=== PATIENT | male | born 1935 | race Caucasian/White ===

== ENCOUNTER → 2020-07-06 13:59 | Outpatient (BNVA) | payer MEDICARE, OTHER, SELFPAY | PROVIDERS: PCP Internal Medicine; Referring Provider Internal Medicine; Visit Provider Orthopaedic Surgery | DX: M75.41 Impingement syndrome of right shoulder (principal) | CPT/HCPCS: 20610; 99214; J1040 ==

== ENCOUNTER 2020-07-26 15:42 | Outpatient (REF) | payer MEDICARE, OTHER, SELFPAY ==
--- NOTE | 2020-07-26 | MR_ITS ---
EXAMINATION: MR SHOULDER WITHOUT CONTRAST, RIGHT CLINICAL INFORMATION: Right shoulder pain ROM. Evaluate for tear. Patient reports right shoulder sore and crackling noise, symptoms for one year. COMPARISON: XR right shoulder 10/26/2019. TECHNIQUE: MRI of the shoulder without contrast was performed on a high-field scanner. FINDINGS: ROTATOR CUFF: There is a focal irregular partial bursal surface insertional tear of the posterior fibers of the distal supraspinatus tendon, possibly involving the conjoined supraspinatus/infraspinatus tendon. This measures 13 mm transverse and 9 mm AP. There is a grossly intact thin articular surface. A small intramuscular cyst at the infraspinatus musculotendinous junction raises the suspicion of involvement of the conjoined tendon. There is distal subscapularis tendinosis with articular surface fraying and a suspected tiny interstitial insertional tear identified on the sagittal sequence. The teres minor tendon is intact. There is a small subacromial-subdeltoid bursal effusion. No muscle atrophy or fatty infiltration. BICEPS: There is moderate to high-grade partial tearing of the long head of the biceps tendon at the top the bicipital groove extending to the intra-articular portion. The biceps anchor appears intact. CORACOACROMIAL ARCH: The undersurface of the acromion is curved with a moderate-sized irregular broad-based subacromial spur. This includes a prominent anteroinferior extension. 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 LABRUM/CAPSULE: There appears to be a small tear at the base of the superior labrum. The anterior and posterior labrum are grossly intact. The capsular structures are unremarkable. GLENOHUMERAL JOINT/MARROW: There is patchy mild cartilage irregularity and thinning in the glenohumeral joint. There is a focal full-thickness fissure in the anterosuperior glenoid. There is a small joint effusion. MR/MR shoulder RT wo con IMPRESSION: 1. Focal irregular partial bursal surface insertional tear of the posterior fibers of the distal supraspinatus tendon, possibly involving the conjoined supraspinatus/infraspinatus tendon. 2. Distal subscapularis tendinosis with articular surface fraying and suspected tiny interstitial insertional tear. 3. Zfcypggq-vi-vjmr-grade partial tearing of the long head of the biceps tendon. 4. Moderate-sized irregular broad-based subacromial spur and moderate osteoarthritis of the acromioclavicular joint. 5. Overall mild glenohumeral arthrosis. Focal full-thickness cartilage fissure in the anterosuperior glenoid. Small joint effusion. 6. Small tear at the base of the superior labrum.
== END 2020-07-26 15:43 | disposition home or self-care (01) ==
LOC: HO.MRI 15:42
PROVIDERS: Visit Provider Internal Medicine
DX: M25.511 Pain in right shoulder (principal)
CPT/HCPCS: 73221

== ENCOUNTER → 2020-08-10 13:53 | Outpatient (BNVA) | payer MEDICARE, OTHER, SELFPAY | PROVIDERS: PCP Internal Medicine; Referring Provider Internal Medicine; Visit Provider Orthopaedic Surgery | DX: M75.41 Impingement syndrome of right shoulder (principal); S46.001A Unspecified injury of muscle(s) and tendon(s) of the rotator cuff of right shoulder, initial encounter | CPT/HCPCS: 99212 ==

== ENCOUNTER 2021-02-09 20:35 | Emergency (ER) | payer OTHER, SELFPAY ==
[2021-02-09 20:41] VITALS: BP 133/58; PULSE 79; RESP 16; TEMP 36.4; O2SAT 97; BMI 24.9
--- NOTE | 2021-02-09 21:45 | ED.WOUNDLAC ---
HPI - Wound/Laceration General Chief Complaint: Wound/Laceration Stated Complaint: lac - on blood thinner Time Seen by Provider: 02/09/21 21:42 Source: patient Mode of arrival: ambulatory History of Present Illness HPI narrative: 85-year-old male who presents after having a skin tear/laceration repaired up in [place] while on anticoagulation. His who is with him was concerned regarding continued ?bleeding?. They state that they have a follow-up appointment on Saturday with their PCP. Otherwise, patient denies any fevers, chills, numbness/tingling into the distal left upper extremity. Related Data Home Medications Medication Instructions Recorded Confirmed apixaban 5 mg tablet 5 mg PO BID 08/10/20 finasteride 5 mg tablet 5 mg PO DAILY 08/10/20 fluticasone propionate 50 1 spray INTRANASAL DAILY 08/10/20 mcg/actuation nasal spray,suspension loratadine 5 mg/5 mL oral solution 10 ml PO DAILY 08/10/20 metoprolol succinate 50 mg 50 mg PO DAILY 08/10/20 tablet,extended release 24 hr tamsulosin 0.4 mg capsule 0.4 mg PO DAILY 08/10/20 Allergies Allergy/AdvReac Type Severity Reaction Status Date / Time No Known Allergies Allergy Verified 07/06/20 14:02 Review of Systems Review of Systems: Pertinent positives and negatives as stated in HPI 10 point review of systems is otherwise negative. [facility] Past Medical History Source: nursing notes reviewed Social History Social History Advance Directives: No Advance Directives Information Provided: No Current occupational status: retired Current occupation: Right Handed Physical Exam Vital Signs: Vital Signs: Last Vital Signs Temp 97.6 F 02/09/21 20:41 Pulse 79 02/09/21 20:41 Resp 16 02/09/21 20:41 BP 133/58 L 02/09/21 20:41 Pulse Ox 97 02/09/21 20:41 Body Mass Index 24.9 VITAL SIGNS: Reviewed. GENERAL: Well developed, well nourished, in no acute distress. HEAD: Normocephalic/atraumatic EYES: PERRLA, EOMI LUNGS: Normal breath sounds. No adventitious sounds or accessory muscle use. SpO2<97> CARDIOVASCULAR: Regular rate and rhythm without noted murmurs ABDOMEN: Soft, non-tender, non-distended with bowel sounds. LUE: Skin tear that is well-approximated, hemostatic, without surrounding erythema or induration and no evidence of hematoma development. Normal vascularly intact distal. NEUROLOGIC: Alert and oriented x 4. Course Course Course Narrative: 85-year-old male with history and clinical presentation consistent with well approximated and repaired skin tear to the left upper extremity that is hemostatic. Both the patient and his were reassured, the wound was redressed with Telfa and Kerlix gauze and patient was discharged with instructions to continue with follow-up with his PCP at 1:00 p.m. on Saturday. Discharge Plan Discharge Clinical Impression: Skin tear of forearm without complication Patient Disposition: Home, Self-Care Instructions: Skin Tear (ED) Additional Instructions: Please continue with your home medications as prescribed. Please continue with your scheduled appointment at 1:[address] Polanco Return to the emergency room for any acute worsening of your symptoms. Referrals: Michael Polanco MD [Primary Care Provider] - 2 days (Re-evaluation of skin tear this hemostatic on this recheck on 02/09 at [facility]. )
== END 2021-02-09 21:55 | disposition home or self-care (01) ==
PROVIDERS: Emergency Provider Student in an Organized Health Care Education/Training Program; PCP Internal Medicine
DX: Z48.00 Encounter for change or removal of nonsurgical wound dressing (principal); S51.812D Laceration without foreign body of left forearm, subsequent encounter; X58.XXXD Exposure to other specified factors, subsequent encounter
CPT/HCPCS: 99283

== ENCOUNTER → 2021-03-06 13:14 | Outpatient (BNVA) | payer OTHER, MEDICARE, SELFPAY | PROVIDERS: PCP Internal Medicine; Referring Provider Internal Medicine; Visit Provider Internal Medicine | DX: I48.0 Paroxysmal atrial fibrillation (principal); I49.8 Other specified cardiac arrhythmias; Z95.818 Presence of other cardiac implants and grafts; Z79.899 Other long term (current) drug therapy | CPT/HCPCS: 93005; 99202 ==

== ENCOUNTER 2021-05-09 11:01 | Outpatient (REF) | payer MEDICARE, OTHER, SELFPAY ==
--- NOTE | ~2021-05-09 | XR_ITS ---
EXAMINATION: XR SHOULDER, LEFT CLINICAL INFORMATION: Left shoulder pain. COMPARISON: None. TECHNIQUE: Grashey, scapular Y, and axillary views of the left shoulder. FINDINGS: Small acromioclavicular marginal osteophytes. Small subacromial spurs. Moderate glenohumeral joint space narrowing with small marginal osteophytes. No osseous erosion. No fracture or dislocation. No abnormal soft tissue calcification. XR/XR shoulder LT min 2V IMPRESSION: Mild acromioclavicular osteoarthritis with small subacromial spurs, unchanged. Mild glenohumeral osteoarthritis, unchanged.
== END 2021-05-09 11:02 | disposition home or self-care (01) ==
LOC: HO.HOSX 11:01
PROVIDERS: Visit Provider Orthopaedic Surgery
DX: M75.41 Impingement syndrome of right shoulder (principal); M75.42 Impingement syndrome of left shoulder
CPT/HCPCS: 20610; 73030; 99212; J1040

== ENCOUNTER → 2021-05-11 10:22 | Outpatient (REF) | payer MEDICARE, OTHER, SELFPAY ==
--- NOTE | 2021-05-11 10:26 | CA_ITS ---
Transthoracic Echocardiogram Patient (Last, First, Middle): Mihir Pitts, Gender: Male Date of : 1935 Age: 85 Procedure Date: 05/11/2021 Procedure Type: Transthoracic Echocardiogram Location: OP Height: 187.96 cm Weight: 81.65 kg BSA: 2.08 m2 Heart Rate: bpm BP: 136 / 80 mmHg Accounting Clerk: SALUD De Dios MD: Kamari Osuna MD Community Health Nurse Staff: Alex Hassan MD Symptoms: I48.0 - Paroxysmal atrial fibrillation Study Quality: Good ECG Rhythm: Sinus Conclusions: - 1. Normal LV systolic function with impaired relaxation filling pattern 2. Mildly dilated left atrium 3. Mild aortic regurgitation 4. Normal RV systolic pressure 5. Mildly dilated ascending aorta at 3.9 cm 6. No pericardial effusion Findings Left Ventricle Normal left ventricular size, thickness, and systolic function. The visually estimated ejection fraction is between 55-60%. Spectral Doppler is indicative of an impaired relaxation filling pattern. E/E prime ratio is between 8 and 15 consistent with indeterminate filling pressures. Right Ventricle Normal right ventricular cavity size and systolic function. Atria The left atrium is mildly dilated. There is no evidence of interatrial shunt. The right atrium is normal in size. Aortic Valve There is mild calcification of the aortic valve. There is no aortic valve stenosis. There is mild aortic valve regurgitation. Mitral Valve There is mild anterior and posterior mitral leaflet thickening. There is trace mitral valve regurgitation. There is no mitral valve stenosis. Pulmonic Valve The pulmonic valve was not well visualized. Tricuspid Valve Likely normal tricuspid valve structure and function. There is mild tricuspid valve regurgitation. The right ventricular systolic pressure is normal. The right ventricular systolic pressure is 35 mmHg. Normal right atrial pressure. There is no evidence of pulmonary hypertension. Great Vessels The pulmonary artery was not well visualized. There is mild dilatation of the ascending aorta measuring 3.90 cm. Venous The inferior vena cava is normal in size and collapses greater than 50% with inspiration. Pericardium/Pleural There is no evidence of pericardial effusion. Prior Study Comparison No previous study in the last 5 years for comparison Measurements 2D Linear Measurements IVSd: 1.08 0.6-0.9/0.6-1.0 cm LVIDd: 4.44 3.9-5.3/4.2-5.9 cm LVIDd Index: 2.13 2.4-3.2/2.2-3.1 cm/m2 LVIDs: 2.82 2.0-3.6 cm LVPWd: 0.88 0.7-1.1 cm Ao Root: 3.90 2.1-3.5 cm LA Diam: 3.90 2.7-3.8/3.0-4.0 cm LAIDs Index: 1.88 1.5-2.3 cm/m2 LV Mass: 181.60 67-162/88-224 g LV Mass Index: 87.31 43-95/49-115 g/m2 LVOT Diam: 2.10 3.0+(-)1.3 cm 2D Systolic Function EF 4C: 55.50 >55% EF 2C: 61.80 >55% EF BiP: 59.50 >55% Mitral Valve MV Pk E: 0.80 MV PK A: 0.81 MV Decel Time: 204.00 E/A: 1.00 E'Lateral: 8.49 E'Medial: 6.96 E/E' Med: 11.50 E/E' Lat: 9.40 PHT: 60.00 MVA PHT: 3.67 Decel [place]: 3.93 Aortic Valve AoV Pk Shabbir: 1.25 AoV Mn Shabbir: 0.80 AoV VTI: 0.28 AoV Pk Grad: 6.00 Aov Mn Grad: 3.00 JUSTIN Cont.VTI: 3.42 LVOT LVOT Pk Shabbir: 1.24 LVOT Mn Shabbir: 0.77 LVOT VTI: 0.28 LVOT Pk Grad: 6.00 LVOT Mn Grad: 3.00 LVOT Diam: 2.10 LVOT Area: 3.46 Diastolic Function MV Pk E: 0.80 MV Pk A: 0.81 E/A: 1.00 E'Medial: 6.96 E/E' Med: 11.50 E' Laterial: 8.49 E/E' Lat: 9.40 Right Ventricle TAPSE (mm): 2.77 TVS' Shabbir: 18.00 Tricuspid Valve TR Pk Shabbir: 2.84 TR Pk Grad: 32.00 RA Press: 3.00 RVSP: 35.00 Great Vessels Aorta Ao Root-2D: 3.90 2.0-3.7 cm Ao Asc: 3.90 2.1-3.4 cm Ao Arch: 3.50 Updated in Other Vendor System with Status of Final Alex Hassan MD electronically signed on 05/12/2021 3:28:59 PM with status of Final
== END ==
LOC: HO.CARD 10:22
PROVIDERS: Visit Provider Internal Medicine
DX: I48.0 Paroxysmal atrial fibrillation (principal)
CPT/HCPCS: 93306

== ENCOUNTER 2021-07-06 14:18 | Outpatient (REF) | payer MEDICARE, OTHER, SELFPAY ==
--- NOTE | ~2021-07-06 | XR_ITS ---
EXAMINATION: XR HIP, LEFT CLINICAL INFORMATION: Left hip pain, limited range of motion. COMPARISON: None TECHNIQUE: Two views of the left hip. FINDINGS: Mild left hip degenerative joint changes are seen with joint space narrowing and periarticular sclerosis. There is no acute fracture or dislocation. The left hemipelvis is intact. The soft tissues are unremarkable. 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
== END 2021-07-06 14:19 | disposition home or self-care (01) ==
LOC: HO.HMGCX 14:18
PROVIDERS: PCP Internal Medicine; Visit Provider Internal Medicine
DX: M25.552 Pain in left hip (principal)
CPT/HCPCS: 73502

== ENCOUNTER → 2021-07-10 12:10 | Outpatient (BNVA) | payer MEDICARE, OTHER, SELFPAY | PROVIDERS: PCP Internal Medicine; Referring Provider Internal Medicine; Visit Provider Internal Medicine | DX: I48.0 Paroxysmal atrial fibrillation (principal); I49.8 Other specified cardiac arrhythmias; Z87.891 Personal history of nicotine dependence; Z95.818 Presence of other cardiac implants and grafts; Z79.899 Other long term (current) drug therapy | CPT/HCPCS: 99212 ==

== ENCOUNTER → 2022-01-09 12:12 | Outpatient (BNVA) | payer MEDICARE, OTHER, SELFPAY | PROVIDERS: PCP Internal Medicine; Referring Provider Internal Medicine; Visit Provider Internal Medicine | DX: I49.8 Other specified cardiac arrhythmias (principal); I48.19 Other persistent atrial fibrillation; I10 Essential (primary) hypertension; Z95.818 Presence of other cardiac implants and grafts | CPT/HCPCS: 99212 ==

== ENCOUNTER 2022-02-26 11:24 | Outpatient (REF) | payer MEDICARE, OTHER, SELFPAY ==
--- NOTE | ~2022-02-26 | XR_ITS ---
EXAMINATION: XR CHEST CLINICAL INFORMATION: Persistent atrial fibrillation. COMPARISON: None. TECHNIQUE: Frontal view of the chest was obtained. FINDINGS: An implantable loop recorder projects over the medial base of the left lung. Normal-sized heart. Tortuous aorta. Clear lungs. No effusion or pneumothorax. XR/XR chest 1V IMPRESSION: No acute process identified.
[2022-02-26 12:13] LABS: Hemoglobin 13.6 g/dl (14.0-18.0); Mean Corpuscular HGB Conc 33.2 g/dl (31.0-36.0); Mean Corpuscular Volume 99.5 fL (80.0-98.0); Mean Platelet Volume 8.5 fL (9.4-12.4); Platelet Count 222 X10*3/uL (160-400); Red Blood Count 4.12 X10*6/uL (4.60-5.80); Red Cell Distribution Width 13.4 % (11.0-16.0); White Blood Count 6.6 X10*3/uL (4.8-10.8)
[2022-02-26 12:43] LABS: Alanine Aminotransferase 20 U/L (0-40); Albumin Level 4.1 g/dL (3.5-5.0); Alkaline Phosphatase 80 U/L (39-117); Anion Gap 11 (12-20); Aspartate Amino Transferase 19 U/L (5-37); Bilirubin Total 0.7 mg/dL (0.0-1.0); Blood Urea Nitrogen 24 mg/dL (9-16); Calcium 9.1 mg/dL (8.4-10.2); Carbon Dioxide 28 mmol/L (22-29); Chloride 107 mmol/L (96-108); Estimated Glomerular Filt Rate > 60; Glucose Random 98 mg/dL (60-115); Potassium 3.9 mmol/L (3.3-5.1); Sodium 142 mmol/L (135-145); Total Protein 6.7 g/dL (6.5-8.0)
== END 2022-02-26 11:25 | disposition home or self-care (01) ==
LOC: HO.XRAY 11:24
PROVIDERS: PCP Internal Medicine; Visit Provider Nurse Practitioner Family
DX: I48.19 Other persistent atrial fibrillation (principal)
CPT/HCPCS: 36415; 71045; 80053; 84443; 85027

== ENCOUNTER → 2022-02-27 10:10 | Outpatient (BNVA) | payer MEDICARE, OTHER, SELFPAY | PROVIDERS: PCP Internal Medicine; Referring Provider Internal Medicine; Visit Provider Internal Medicine | DX: I48.91 Unspecified atrial fibrillation (principal); R94.31 Abnormal electrocardiogram [ECG] [EKG] | CPT/HCPCS: 93005 ==

== ENCOUNTER → 2022-06-27 12:35 | Outpatient (BNVA) | payer MEDICARE, OTHER, SELFPAY | PROVIDERS: PCP Internal Medicine; Referring Provider Internal Medicine; Visit Provider Internal Medicine | DX: I48.19 Other persistent atrial fibrillation (principal); I49.8 Other specified cardiac arrhythmias; I10 Essential (primary) hypertension; Z95.818 Presence of other cardiac implants and grafts; Z79.01 Long term (current) use of anticoagulants; Z79.899 Other long term (current) drug therapy | CPT/HCPCS: 99212 ==

== ENCOUNTER → 2022-08-01 13:56 | Outpatient (REF) | payer MEDICARE, OTHER, SELFPAY ==
--- NOTE | 2022-08-01 13:59 | CA_ITS ---
Transthoracic Echocardiogram Patient (Last, First, Middle): Mihir Pitts, Gender: Male Date of : 1935 Age: 87 Procedure Date: 08/01/2022 Procedure Type: Transthoracic Echocardiogram Location: OP Height: 190.5 cm Weight: 81.65 kg BSA: 2.10 m2 Heart Rate: 96 bpm BP: 135 / 80 mmHg Second Baller: CECILY De Dios MD: Kamari Osuna MD Field Technical Specialist: Alex Hassan MD Symptoms: I49.8 - Other specified cardiac arrhythmias Study Quality: Fair ECG Rhythm: Atrial Fibrillation Conclusions: - 1. Mildly reduced LV systolic function with LVEF of 45-50% 2. Moderately dilated left atrium 3. Mild aortic and mild mitral regurgitation 4. Normal RV systolic pressure 5. Mildly dilated ascending aorta measured at 3.8 cm on this study 6. No gross pericardial effusion Findings Left Ventricle Normal left ventricular cavity size. There is mildly increased left ventricular wall thickness. The left ventricular systolic function is mildly decreased. The visually estimated ejection fraction is between 45-50%. Diastolic function is indeterminate on the basis of available data. Right Ventricle Normal right ventricular cavity size and systolic function. Atria The left atrium is moderately dilated. There is no evidence of interatrial shunt. The right atrium is likely dilated. Aortic Valve There is mild thickening of the aortic valve. There is no aortic valve stenosis. There is mild aortic valve regurgitation. Mitral Valve There is mild anterior and posterior mitral leaflet thickening. There is mild mitral valve regurgitation. There is no mitral valve stenosis. Pulmonic Valve The pulmonic valve is likely normal. There is trace to mild pulmonic valve regurgitation. Tricuspid Valve Normal tricuspid valve structure. There is trace tricuspid valve regurgitation. The right ventricular systolic pressure is normal. The right ventricular systolic pressure is 17 mmHg. Normal right atrial pressure. There is no evidence of pulmonary hypertension. Great Vessels The pulmonary artery was not well visualized. There is mild dilatation of the ascending aorta measuring 3.80 cm. Venous The inferior vena cava is normal in size and collapses greater than 50% with inspiration. Pericardium/Pleural There is no evidence of pericardial effusion. Prior Study Comparison Changes noted compared to prior study dated: 05/11/2021. LV systolic function is mildly reduced Measurements 2D Linear Measurements IVSd: 1.34 0.6-0.9/0.6-1.0 cm LVIDd: 4.42 3.9-5.3/4.2-5.9 cm LVIDd Index: 2.10 2.4-3.2/2.2-3.1 cm/m2 LVIDs: 3.87 2.0-3.6 cm LVPWd: 1.14 0.7-1.1 cm LA Diam: 4.40 2.7-3.8/3.0-4.0 cm LAIDs Index: 2.10 1.5-2.3 cm/m2 LV Mass: 251.84 67-162/88-224 g LV Mass Index: 119.93 43-95/49-115 g/m2 LVOT Diam: 2.30 3.0+(-)1.3 cm 2D Systolic Function EF 4C: 43.60 >55% EF 2C: 50.90 >55% EF BiP: 46.50 >55% Mitral Valve E'Lateral: 9.79 E'Medial: 7.83 Aortic Valve AoV Pk Shabbir: 1.03 AoV Mn Shabbir: 0.74 AoV VTI: 0.22 AoV Pk Grad: 4.00 Aov Mn Grad: 3.00 JUSTIN Cont.VTI: 2.99 AI Pk Shabbir: 3.03 AI [place]: 1.75 LVOT LVOT Pk Shabbir: 0.78 LVOT Mn Shabbir: 0.55 LVOT VTI: 0.16 LVOT Pk Grad: 2.00 LVOT Mn Grad: 1.00 LVOT Diam: 2.30 LVOT Area: 4.15 Diastolic Function E'Medial: 7.83 E' Laterial: 9.79 Right Ventricle TAPSE (mm): 18.50 TVS' Shabbir: 10.30 Tricuspid Valve TR Pk Shabbir: 1.86 TR Pk Grad: 14.00 RA Press: 3.00 RVSP: 17.00 Great Vessels Aorta Sinus of Valsalva: 3.50 2.0-3.5 cm Ao Asc: 3.80 2.1-3.4 cm Pulmonary Valve PV Pk Shabbir: 0.69 Peak PV Grad: 2.00 Updated in Other Vendor System with Status of Final Alex Hassan MD electronically signed on 08/02/2022 9:04:59 AM with status of Final
== END ==
LOC: HO.CARD 13:56
PROVIDERS: Absent Provider Internal Medicine; PCP Internal Medicine; Visit Provider Internal Medicine Cardiovascular Disease
DX: I49.8 Other specified cardiac arrhythmias (principal)
CPT/HCPCS: 93306

== ENCOUNTER 2022-12-13 10:53 | Outpatient (REF) | payer MEDICARE, OTHER, SELFPAY ==
--- NOTE | ~2022-12-13 | CT_ITS ---
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 COMPARISON: CT head from 04/03/2019. Brain MRI from 03/12/2019. TECHNIQUE: Contiguous axial imaging was performed from the skull base to vertex without intravenous administration of contrast. This CT examination was performed using dose optimization techniques as appropriate, variously including the following: *Automated exposure control. *Adjustment of mA and/or kV according to patient size (this includes techniques or standardized protocols for targeted exams where dose is matched to indication/reason for exam; i.e. extremities or head). *Use of iterative reconstruction technique. DLP: 891 mGy-cm FINDINGS: There is no evidence of acute intracranial hemorrhage or edematous territorial infarction. Mota-white matter differentiation is preserved. Scattered and partially confluent hypoattenuation in the periventricular and deep white matter are consistent with mild to moderate microangiopathy. The ventricles are normal in morphology and size. No evidence for obstructive hydrocephalus. No abnormal mass effect or midline shift. No extra-axial fluid collections. Calcific atherosclerotic disease of the intracranial internal carotid and vertebral arteries. No hyperdense vessel sign. No acute soft tissue or osseous abnormalities. Moderate mucosal thickening of the paranasal sinuses. The mastoid air cells and middle ear cavities are clear. Bilateral lens extractions. CT/CT head/brain wo IV con IMPRESSION: 1. No evidence of acute intracranial hemorrhage or edematous territorial infarction. 2. Mild to moderate underlying microangiopathy and generalized cerebral volume loss.
== END 2022-12-13 10:54 | disposition home or self-care (01) ==
LOC: HO.CT 10:53
PROVIDERS: Visit Provider Internal Medicine
DX: G90.3 Multi-system degeneration of the autonomic nervous system (principal)
CPT/HCPCS: 70450

== ENCOUNTER → 2023-01-03 12:44 | Outpatient (BNVA) | payer MEDICARE, OTHER, SELFPAY | PROVIDERS: PCP Internal Medicine; Referring Provider Internal Medicine; Visit Provider Internal Medicine | DX: I48.19 Other persistent atrial fibrillation (principal); I42.9 Cardiomyopathy, unspecified; I49.8 Other specified cardiac arrhythmias; I10 Essential (primary) hypertension; Z79.01 Long term (current) use of anticoagulants; Z79.899 Other long term (current) drug therapy; Z95.818 Presence of other cardiac implants and grafts | CPT/HCPCS: 93005; 99212 ==

== ENCOUNTER 2023-03-06 09:49 | Outpatient (REF) | payer MEDICARE, OTHER, SELFPAY ==
[2023-03-06 09:53] VITALS: BMI 49.4
[2023-03-06 09:54] VITALS: BP 132/63; PULSE 88; RESP 16; TEMP 35.9; O2SAT 96
[2023-03-06 10:24] VITALS: BP 127/61; PULSE 72; RESP 18; O2SAT 97
--- NOTE | 2023-03-06 11:45 | PM.OP ---
Brief Operative Note Date of Service: 03/06/23 Pre-op diagnosis: Implantable loop recorder in place Post-op diagnosis: same Procedure: Removal of implantable loop recorder Implants: After obtaining full informed consent patient was brought to the minor surgery suite. Patient was laid on the operating table in supine position. The precordial area with a was then prepped and draped in a sterile fashion. Patient was then given 2% lidocaine with epinephrine intradermally and subcutaneously over the site of implantable loop recorder. A small incision was then made at the head of the implantable loop recorder. The loop recorder was then removed with help of a Shakila. The wound was then closed with help of Steri-Strips and pressure dressing applied. Surgeon: Alex Hassan MD Anesthesia: local Was an Jewelry Store Manager used for this Procedure?: No Estimated blood loss (mL): 2 Pathology: none sent Condition: stable Disposition: same day
== END 2023-03-06 09:50 | disposition home or self-care (01) ==
LOC: HO.MS 09:49
PROVIDERS: PCP Internal Medicine; Visit Provider Internal Medicine Cardiovascular Disease
PROC: (CPT 33286; principal; 2023-03-06 10:00)
DX: Z95.818 Presence of other cardiac implants and grafts (principal); Z45.09 Encounter for adjustment and management of other cardiac device
CPT/HCPCS: 33286

== ENCOUNTER → 2023-03-21 14:45 | Outpatient (BNVA) | payer MEDICARE, OTHER, SELFPAY | PROVIDERS: PCP Internal Medicine; Visit Provider Internal Medicine | DX: J86.9 Pyothorax without fistula (principal) | CPT/HCPCS: Q3014 ==

== ENCOUNTER → 2023-06-17 12:57 | Outpatient (REF) | payer MEDICARE, OTHER, SELFPAY ==
--- NOTE | 2023-06-17 13:00 | CA_ITS ---
Transthoracic Echocardiogram Amended Patient (Last, First, Middle): Mihir Pitts, Gender: Male Date of : 1935 Age: 87 Procedure Date: 06/17/2023 Procedure Type: Transthoracic Echocardiogram Location: OP Height: 187.96 cm Weight: 81.99 kg BSA: 2.08 m2 Heart Rate: 80 bpm BP: 130 / 80 mmHg Echo Vasc Tech: CECILY Referring MD: Kamari Osuna MD Symptoms: I42.9 - Cardiomyopathy, unspecified Study Quality: Adequate ECG Rhythm: Atrial Fibrillation Conclusions: - 1. Low normal LV ejection fraction of 50-55% 2. Mildly dilated ascending aorta at 4 cm 3. Moderately dilated left atrium 4. Mild aortic and mitral regurgitation 5. No gross pericardial effusion Findings Left Ventricle Normal left ventricular cavity size. There is normal left ventricular wall thickness. The left ventricular systolic function is low normal. The visually estimated ejection fraction is between 50-55%. Diastolic function is indeterminate on the basis of available data. There is mild septal asymmetric hypertrophy. Right Ventricle Normal right ventricular cavity size and systolic function. Atria The left atrium is moderately dilated. Interatrial shunt cannot be excluded. The right atrium is mildly dilated. Aortic Valve There is mild calcification of the aortic valve. There is no aortic valve stenosis. There is mild aortic valve regurgitation. Mitral Valve There is mild anterior and posterior mitral leaflet thickening. There is mild mitral annular calcification. There is mild mitral valve regurgitation. There is no mitral valve stenosis. Pulmonic Valve The pulmonic valve is likely normal. Tricuspid Valve Normal tricuspid valve structure. There is trace tricuspid valve regurgitation. The right ventricular systolic pressure is 20 mmHg. Normal right atrial pressure. There is no evidence of pulmonary hypertension. Great Vessels The pulmonary artery was not well visualized. There is mild dilatation of the ascending aorta measuring 4.00 cm. Venous The inferior vena cava is normal in size and collapses greater than 50% with inspiration. Pericardium/Pleural There is no evidence of pericardial effusion. Prior Study Comparison Changes noted compared to prior study dated: 08/01/2022. LV systolic function is marginally improved Measurements 2D Linear Measurements IVSd: 1.40 0.6-0.9/0.6-1.0 cm LVIDd: 4.60 3.9-5.3/4.2-5.9 cm LVIDd Index: 2.21 2.4-3.2/2.2-3.1 cm/m2 LVIDs: 3.70 2.0-3.6 cm LVPWd: 1.00 0.7-1.1 cm LA Diam: 4.60 2.7-3.8/3.0-4.0 cm LAIDs Index: 2.21 1.5-2.3 cm/m2 LV Mass: 255.49 67-162/88-224 g LV Mass Index: 122.83 43-95/49-115 g/m2 LVOT Diam: 2.00 3.0+(-)1.3 cm 2D Volumes LA Vol: 47.10 2D Systolic Function EF 4C: 55.10 >55% EF 2C: 56.00 >55% EF BiP: 53.00 >55% Mitral Valve MV Pk E: 0.90 MV PK A: 0.66 MV Decel Time: 260.00 E/A: 1.40 E'Lateral: 10.90 E'Medial: 9.57 E/E' Med: 9.40 E/E' Lat: 8.30 PHT: 76.00 MVA PHT: 2.89 Decel [place]key: 3.47 Aortic Valve AoV Pk Shabbir: 1.01 AoV Mn Shabbir: 0.78 AoV VTI: 0.24 AoV Pk Grad: 4.00 Aov Mn Grad: 3.00 JUSTIN Cont.VTI: 2.24 AI Pk Shabbir: 2.72 AI Dickey: 1.36 LVOT LVOT Pk Shabbir: 0.79 LVOT Mn Shabbir: 0.57 LVOT VTI: 0.17 LVOT Pk Grad: 3.00 LVOT Mn Grad: 1.00 LVOT Diam: 2.00 LVOT Area: 3.14 Diastolic Function MV Pk E: 0.90 MV Pk A: 0.66 E/A: 1.40 E'Medial: 9.57 E/E' Med: 9.40 E' Laterial: 10.90 E/E' Lat: 8.30 Right Ventricle TAPSE (mm): 21.70 TVS' Shabbir: 12.00 Tricuspid Valve TR Pk Shabbir: 2.09 TR Pk Grad: 17.00 RA Press: 3.00 RVSP: 20.00 Great Vessels Aorta Sinus of Valsalva: 3.70 2.0-3.5 cm Ao Asc: 4.00 2.1-3.4 cm Updated in Other Vendor System with Status of Final Alex Hassan MD electronically signed on 06/18/2023 11:19:43 AM with status of Final
== END ==
LOC: HO.CARD 12:57
PROVIDERS: PCP Internal Medicine; Visit Provider Internal Medicine
DX: I42.9 Cardiomyopathy, unspecified (principal)
CPT/HCPCS: 93306

== ENCOUNTER → 2023-06-17 13:00 | Outpatient (BNV) | payer MEDICARE, OTHER, SELFPAY | PROVIDERS: PCP Internal Medicine; Visit Provider Internal Medicine Cardiovascular Disease | DX: I35.1 Nonrheumatic aortic (valve) insufficiency (principal); I34.0 Nonrheumatic mitral (valve) insufficiency | CPT/HCPCS: 93306 ==

== ENCOUNTER 2023-06-20 09:38 | Outpatient (AMB) | payer MEDICARE, OTHER, SELFPAY ==
--- NOTE | 2023-06-20 09:43 | A.OFFVIS_ITS ---
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 According to , he might be getting some dementia type symptoms. He falls asleep during the day extra. Memory issues and others. In fact, they have decided that he can stop driving. Otherwise, from cardiac he does not really have any symptoms like angina or shortness of breath or palpitations or anything else along those lines. Otherwise, getting along okay. [facility] Medical History Atrial arrhythmia PAF (paroxysmal atrial fibrillation) Surgical History History of loop recorder Family History Father Myocardial infarct Mother No problems noted. Social History Patient Tobacco Use Status: Former Tobacco user Quit Date: 02/03/1971 Current occupational status: retired Current occupation: Right Handed Review of Systems Const Denies weakness ENT Denies dizziness Card Denies chest pain, Denies chest pain with activity, Denies syncope, Denies rapid heart rate, Denies pedal edema, Denies edema, Denies leg edema, Denies lightheadedness, Denies palpitations, Denies dyspnea, Denies dyspnea on exertion and Denies orthopnea Resp Denies cough, Denies dyspnea and Denies dyspnea on exertion GI Denies hematochezia and Denies change in stool character Musc Denies abnormal gait, Denies muscle cramps, Denies muscle weakness, Denies numbness, Denies radiating pain into limb and Denies tingling Neuro Denies abnormal gait, Denies dizziness, Denies syncope, Denies numbness, Denies tingling and Denies weakness Endo Denies palpitations Physical Exam Vital Signs: Last Vital Signs Pulse 82 06/20/23 09:44 BP 120/72 06/20/23 09:44 BMI result Body Mass Index 24.1 Const General: comfortable and no acute distress Orientation/consciousness: patient oriented x3 HEENT Other: Unremarkable Head: Yes normal to inspection Neck Neck: Yes normal visual inspection Chest Chest palpation & inspection: normal inspection of the chest Resp Auscultation: clear to auscultation bilaterally Cardio Palpation: normal PMI Heart sounds: S1 normal heart sound present, S2 normal heart sound present, no gallops, no murmurs and no rubs GI Palpation (GI): Soft to palpation Back/Spine/Pelvis Other: unremarkable Skin General skin exam: no rashes or lesions noted Neuro General: patient oriented x3 Extrem General: Yes normal to inspection Psych Mental Status: mental status grossly normal Assessment & Plan Assessment & Plan (1) Persistent atrial fibrillation: Code(s): I48.19 - Other persistent atrial fibrillation (2) Cardiomyopathy: Code(s): I42.9 - Cardiomyopathy, unspecified (3) Essential hypertension: Code(s): I10 - Essential (primary) hypertension Plan Patient had implantable loop recorder in the past but that has now been removed. We can follow the atrial fibrillation clinically. Continue metoprolol ER as well as digoxin. Based on the previous implantable loop recorder data, these doses have been adjusted and no further changes at this time. Continue Eliquis without changes. With regard to the low normal LVEF on the echocardiogram, probably from atrial fibrillation. Last year, 45-50%. More recently 50-55%. No specific management for that. Blood pressure is stable. Discussed with who came for appointment. Follow-up in 6 months. Coding Level of Care Code Est Pt Level 4 (47169) Diagnoses Persistent atrial fibrillation I48.19 Cardiomyopathy I42.9 Essential hypertension I10
[2023-06-20 09:44] VITALS: BP 120/72; PULSE 82; BMI 24.1
== END 2023-06-20 10:05 | disposition home or self-care (01) ==
PROVIDERS: PCP Internal Medicine; Visit Provider Internal Medicine
DX: I48.19 Other persistent atrial fibrillation (principal); I42.9 Cardiomyopathy, unspecified; I10 Essential (primary) hypertension
CPT/HCPCS: 99214

== ENCOUNTER → 2023-06-20 09:38 | Outpatient (BNVA) | payer MEDICARE, OTHER, SELFPAY | PROVIDERS: PCP Internal Medicine; Visit Provider Internal Medicine | DX: I48.19 Other persistent atrial fibrillation (principal); I42.9 Cardiomyopathy, unspecified; I10 Essential (primary) hypertension; Z79.01 Long term (current) use of anticoagulants; Z79.899 Other long term (current) drug therapy | CPT/HCPCS: 99212 ==

== ENCOUNTER 2023-12-24 10:16 | Outpatient (AMB) | payer MEDICARE, OTHER, SELFPAY ==
--- NOTE | 2023-12-24 10:32 | A.OFFVIS_ITS ---
Intake Vital Signs 12/24/23 10:36 Height 6 ft 1 in Weight 188 lb 7.924 oz BMI 24.9 BP 146/62 H Blood Pressure Location Lt brachial Position Sitting Pulse 64 Intake Visit Reasons: 6 mth fu Intake Note: 6 month follow up w. 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 From cardiac, he is generally doing fine. No specific symptoms. There is concern for dementia type symptoms from his . Sleeps a lot. [facility] Medical History Atrial arrhythmia PAF (paroxysmal atrial fibrillation) Surgical History History of loop recorder Family History Father Myocardial infarct Mother No problems noted. Social History Patient Tobacco Use Status: Former Tobacco user Quit Date: 02/03/1971 Current occupational status: retired Current occupation: Right Handed Review of Systems Const Denies weakness ENT Denies dizziness Card Denies chest pain, Denies chest pain with activity, Denies syncope, Denies rapid heart rate, Denies pedal edema, Denies edema, Denies leg edema, Denies lightheadedness, Denies palpitations, Denies dyspnea, Denies dyspnea on exertion and Denies orthopnea Resp Denies cough, Denies dyspnea and Denies dyspnea on exertion GI Denies hematochezia and Denies change in stool character Musc Denies abnormal gait, Denies muscle cramps, Denies muscle weakness, Denies numbness, Denies radiating pain into limb and Denies tingling Neuro Denies abnormal gait, Denies dizziness, Denies syncope, Denies numbness, Denies tingling and Denies weakness Endo Denies palpitations Physical Exam Vital Signs: Last Vital Signs Pulse 64 12/24/23 10:36 BP 146/62 H 12/24/23 10:36 BMI result Body Mass Index 24.9 Const General: comfortable and no acute distress Orientation/consciousness: patient oriented x3 HEENT Other: Unremarkable Head: Yes normal to inspection Neck Neck: Yes normal visual inspection Chest Chest palpation & inspection: normal inspection of the chest Resp Auscultation: clear to auscultation bilaterally Cardio Palpation: normal PMI Heart sounds: S1 normal heart sound present, S2 normal heart sound present, no gallops, no murmurs and no rubs GI Palpation (GI): Soft to palpation Back/Spine/Pelvis Other: unremarkable Skin General skin exam: no rashes or lesions noted Neuro General: patient oriented x3 Extrem General: Yes normal to inspection Psych Mental Status: mental status grossly normal Office Procedures EKG Details: EKG with atrial fibrillation at a rate of 64/Min; no significant ST-T changes and otherwise unremarkable. [id number], Complete Assessment & Plan Assessment & Plan (1) Persistent atrial fibrillation: Code(s): I48.19 - Other persistent atrial fibrillation (2) Cardiomyopathy: Code(s): I42.9 - Cardiomyopathy, unspecified (3) Essential hypertension: Code(s): I10 - Essential (primary) hypertension Plan Patient had implantable loop recorder in the past but that has now been removed. Atrial fibrillation seems otherwise stable. Continue metoprolol ER as well as digoxin. Based on the previous implantable loop recorder data, these doses have been adjusted and no further changes at this time. Check BNP/digoxin level. Continue Eliquis. With regard to the low normal LVEF on the echocardiogram, probably from atrial fibrillation. Last year, 45-50%. More recently 50-55%. No specific management for that. Borderline blood pressure but no specific changes for now. We plan to see him back in 6 months. He will continue to see his own PCP as well and has an appointment coming up. Discussed with . Orders: Orders Digoxin Today I48.19 - Other persistent atrial fibrillation Basic Metabolic Panel Today I48.19 - Other persistent atrial fibrillation Medications: Refilled apixaban (Eliquis) 5 mg PO BID 180 tabs 3RF Coding Level of Care Code Est Pt Level 4 (10414) Diagnoses Persistent atrial fibrillation I48.19 Cardiomyopathy I42.9 Essential hypertension I10 CPT Codes EKG - CPT: 57615-[id number], Complete ([id number])
[2023-12-24 10:36] VITALS: BP 146/62; PULSE 64; BMI 24.9
== END 2023-12-24 10:58 | disposition home or self-care (01) ==
PROVIDERS: PCP Internal Medicine; Visit Provider Internal Medicine
DX: I48.19 Other persistent atrial fibrillation (principal); I42.9 Cardiomyopathy, unspecified; I10 Essential (primary) hypertension
CPT/HCPCS: 93010; 99214

== ENCOUNTER → 2023-12-24 10:16 | Outpatient (BNVA) | payer MEDICARE, OTHER, SELFPAY | PROVIDERS: PCP Internal Medicine; Visit Provider Internal Medicine | DX: I48.19 Other persistent atrial fibrillation (principal); I42.9 Cardiomyopathy, unspecified; I10 Essential (primary) hypertension | CPT/HCPCS: 93005; 99212 ==

== ENCOUNTER 2023-12-25 09:14 | Outpatient (REF) | payer MEDICARE, OTHER, SELFPAY ==
[2023-12-25 11:50] LABS: Anion Gap 10 (12-20); Blood Urea Nitrogen 23 mg/dL (9-16); Calcium 9.1 mg/dL (8.4-10.2); Carbon Dioxide 30 mmol/L (22-29); Chloride 106 mmol/L (96-108); Estimated Glomerular Filt Rate > 60; Glucose Random 153 mg/dL (60-115); Potassium 3.8 mmol/L (3.3-5.1); Sodium 142 mmol/L (135-145)
[2023-12-25 12:08] LABS: Digoxin 0.3 ng/mL (0.8-2.0)
== END 2023-12-25 09:15 | disposition home or self-care (01) ==
LOC: HO.WFDLDS 09:14
PROVIDERS: Visit Provider Internal Medicine
DX: I48.19 Other persistent atrial fibrillation (principal)
CPT/HCPCS: 36415; 80048; 80162

== ENCOUNTER → 2024-07-02 13:01 | Outpatient (REF) | payer MEDICARE, OTHER, SELFPAY ==
--- NOTE | 2024-07-02 13:05 | CA_ITS ---
Transthoracic Echocardiogram Patient (Last, First, Middle): Mihir Pitts, Gender: Male Date of : 1935 Age: 88 Procedure Date: 07/02/2024 Procedure Type: Transthoracic Echocardiogram Location: OP Height: 190.5 cm Weight: 81.65 kg BSA: 2.10 m2 Heart Rate: 65 bpm BP: 130 / 80 mmHg Chemistry Manager: CECILY De Dios MD: Kamari Osuna MD Race Steward: Alex Hassan MD Symptoms: I42.9 - Cardiomyopathy, unspecified Study Quality: Fair ECG Rhythm: Atrial Fibrillation Conclusions: - 1. Normal LV ejection fraction 55-60% 2. Moderately dilated left atrium 3. Mild aortic regurgitation 4. Mildly dilated ascending aorta at 3.9 cm 5. No gross pericardial effusion Findings Left Ventricle Normal left ventricular size, thickness, and systolic function. The visually estimated ejection fraction is between 55-60%. There is mild septal asymmetric hypertrophy. Right Ventricle Normal right ventricular cavity size and systolic function. Atria The left atrium is moderately dilated. There is lipomatous hypertrophy of the interatrial septum. There is no evidence of interatrial shunt. The right atrium is mildly dilated. Aortic Valve There is mild calcification of the aortic valve. There is no aortic valve stenosis. There is mild aortic valve regurgitation. Mitral Valve There is mild anterior and posterior mitral leaflet thickening. There is mild mitral annular calcification. There is trace mitral valve regurgitation. There is no mitral valve stenosis. Pulmonic Valve The pulmonic valve is likely normal. Tricuspid Valve Likely normal tricuspid valve structure and function. Tricuspid regurgitation envelope is inadequate for calculation of right ventricular systolic pressure. Normal right atrial pressure. Great Vessels The pulmonary artery was not well visualized. There is mild dilatation of the ascending aorta measuring 3.90 cm. Small plaque is seen in the sino tubular ridge. Venous The inferior vena cava is normal in size and collapses greater than 50% with inspiration. Pericardium/Pleural There is no evidence of pericardial effusion. Prior Study Comparison Changes noted compared to prior study dated: 06/17/2023. LV systolic function has marginally improved Measurements 2D Linear Measurements IVSd: 1.43 0.6-0.9/0.6-1.0 cm LVIDd: 4.03 3.9-5.3/4.2-5.9 cm LVIDd Index: 1.92 2.4-3.2/2.2-3.1 cm/m2 LVIDs: 2.89 2.0-3.6 cm LVPWd: 1.00 0.7-1.1 cm LA Diam: 3.50 2.7-3.8/3.0-4.0 cm LAIDs Index: 1.67 1.5-2.3 cm/m2 LV Mass: 212.30 67-162/88-224 g LV Mass Index: 101.10 43-95/49-115 g/m2 LVOT Diam: 2.40 3.0+(-)1.3 cm 2D Systolic Function EF 4C: 54.40 >55% EF 2C: 64.00 >55% EF BiP: 59.90 >55% Mitral Valve MV Pk E: 0.79 MV Decel Time: 251.00 E'Lateral: 9.43 E'Medial: 7.90 E/E' Med: 10.00 E/E' Lat: 8.40 PHT: 73.00 MVA PHT: 3.01 Decel Wharton: 3.16 Aortic Valve AoV Pk Shabbir: 1.12 AoV Mn Shabbir: 0.77 AoV VTI: 0.26 AoV Pk Grad: 5.00 Aov Mn Grad: 3.00 JUSTIN Cont.VTI: 3.28 LVOT LVOT Pk Shabbir: 0.78 LVOT Mn Shabbir: 0.55 LVOT VTI: 0.19 LVOT Pk Grad: 2.00 LVOT Mn Grad: 1.00 LVOT Diam: 2.40 LVOT Area: 4.52 Diastolic Function MV Pk E: 0.79 E'Medial: 7.90 E/E' Med: 10.00 E' Laterial: 9.43 E/E' Lat: 8.40 Right Ventricle TAPSE (mm): 21.40 TVS' Shabbir: 12.90 Tricuspid Valve TR Pk Shabbir: 2.21 TR Pk Grad: 20.00 Great Vessels Aorta Sinus of Valsalva: 3.80 2.0-3.5 cm Ao Asc: 3.90 2.1-3.4 cm Pulmonary Valve PV Pk Shabbir: 0.80 Peak PV Grad: 3.00 Updated in Other Vendor System with Status of Final Alex Hassan MD electronically signed on 07/03/2024 8:56:20 AM with status of Final
== END ==
LOC: HO.CARD 13:01
PROVIDERS: PCP Internal Medicine; Visit Provider Internal Medicine
DX: I42.9 Cardiomyopathy, unspecified (principal)
CPT/HCPCS: 93306

== ENCOUNTER → 2024-07-02 13:05 | Outpatient (BNV) | payer MEDICARE, OTHER, SELFPAY | PROVIDERS: PCP Internal Medicine; Visit Provider Internal Medicine Cardiovascular Disease | DX: I35.1 Nonrheumatic aortic (valve) insufficiency (principal); I35.8 Other nonrheumatic aortic valve disorders; I34.81 Nonrheumatic mitral (valve) annulus calcification | CPT/HCPCS: 93306 ==

== ENCOUNTER 2024-07-25 21:13 | Inpatient (IN) | payer MEDICARE, OTHER, SELFPAY ==
--- NOTE | ~2024-07-25 | CT_ITS ---
EXAMINATION: CT ABDOMEN AND PELVIS WITH CONTRAST CLINICAL INFORMATION: Right-sided abdominal pain COMPARISON: CT head 12/13/2022. CT abdomen and pelvis 03/18/2012. TECHNIQUE: Multidetector volumetric images were obtained from the superior aspect of the liver through the pubic symphysis following administration 85 mL of Omnipaque 350 intravenous contrast. Sagittal and coronal reformatted images were obtained on the technologist's workstation. Oral contrast: No This CT examination was performed using dose optimization techniques as appropriate, variously including the following: *Automated exposure control *Adjustment of mA and/or kV according to patient size (this includes techniques or standardized protocols for targeted exams where dose is matched to indication/reason for exam; i.e. extremities or head) *Use of iterative reconstruction technique DLP: 933 mGy-cm FINDINGS: LUNG BASES: The visualized lung bases are unremarkable. LIVER, GALLBLADDER, AND BILIARY TREE: Trace right subphrenic fluid is present. No focal parenchymal lesions of the liver. Normal liver size and capsular contour. Partial visualization is made of a vague 2 cm diameter density within the lumen of the gallbladder consistent with partially visualized radiodense cholelithiasis. Trace pericholecystic fluid is present. No definitive mural thickening of the gallbladder visualized. No biliary duct dilatation noted. PANCREAS: Unremarkable. SPLEEN: Unremarkable. ADRENAL GLANDS: Unremarkable. KIDNEYS AND URETERS: Benign-appearing approximate 3 cm diameter rounded focus consistent with a benign, simple cyst associated with the inferior pole the right kidney warranting no additional imaging follow-up on the basis of this exam. 1 cm rounded low density focus in the superior pole left kidney warrants no additional imaging follow-up on the basis of this exam. No urolithiasis. No hydronephrosis or perinephric inflammatory changes. BLADDER: Distended GASTROINTESTINAL TRACT: Marked sigmoid diverticulosis. Normal appearance of the terminal ileum. Normal appearance of the appendix (series 3 image 65). Prominent retroperitoneal fat similar to findings present 03/18/2012 no free intraperitoneal fluid or gas collections. ABDOMINAL WALL: No significant hernia is appreciated. LYMPH NODES: Normal. VASCULAR: Diffuse calcific atherosclerosis PELVIC VISCERA: Normal appearance of the prostate. OSSEOUS STRUCTURES: No suspicious skeletal lesions noted. Marked L5-S1 intervertebral disc space narrowing and grade 1 degenerative anterolisthesis. L5 left pars interarticularis defect. No vertebral body compression deformities. CT/CT abdomen pelvis w IV con IMPRESSION: *Possible acute cholecystitis. Radiodense cholelithiasis is noted within the gallbladder lumen. A small quantity of pericholecystic fluid is present in combination with trace perihepatic fluid. This constellation of findings could be secondary to acute cholecystitis. This findings are suspicious for acute cholecystitis but not definitive for acute cholecystitis. As clinically indicated, consider further evaluation with right upper quadrant ultrasound. *Marked sigmoid diverticulosis. No evidence of acute diverticulitis. Electronically signed by: Evan Osullivan MD 07/26/2024 01:53 AM [facility]
--- NOTE | ~2024-07-25 | US_ITS ---
EXAMINATION: US ABDOMEN LIMITED CLINICAL INFORMATION: Right upper quadrant pain. Clinical exam.. COMPARISON: CT abdomen and pelvis 07/26/2024 TECHNIQUE: Real-time imaging of the right upper quadrant abdominal viscera. FINDINGS: GALLBLADDER: There are multiple echogenic gallstones with acoustic shadowing. Gallbladder wall thickness is 0.5 cm. There is nonmobile 3.5 x 2.6 (centimeters mass or irregular shaped polyp along the anterior wall of the gallbladder. COMMON BILE DUCT: Common bile duct measures 0.6 to 0.7 cm.. FREE FLUID: None. US/US abdomen limited IMPRESSION: 1. Cholelithiasis with thickened gallbladder wall. 2. There is 3.5 cm mass or irregular shaped polyp along the anterior wall of the gallbladder. 3. Mildly dilated common bile duct. Electronically signed by: Bertrand Mix MD 07/26/2024 08:43 AM EST
--- NOTE | ~2024-07-25 | CT_ITS ---
History: Patient with cholecystitis Procedure performed: 1. CT-guided placement of a cholecystostomy tube Physician: Anesthesia: IV moderate sedation with intravenous Fentanyl and Versed was administered under my direct supervision with continuous physiologic monitoring for a total of 30 minutes. 8 mL of 1% lidocaine was administered for local anesthesia. Specimen: 20 cc bile sent for gram stain and culture Drain: 8 Finnish locking pigtail catheter Estimated blood loss: Minimal Complications: None Procedure in detail: Informed and written consent was obtained and placed in the patient's chart. The patient was positioned supine on the CT examination table. Preliminary CT scan showed findings that are again consistent with cholecystitis. An appropriate site for access was marked on the skin. This area was prepped and draped. 1% lidocaine was injected subcutaneously and extended to the edge of the gallbladder. A small incision was made in the skin with a #11 blade. Through the incision and under progressive CT guidance with direct visualization of needle entry into the gallbladder, a Yueh needle catheter was advanced through a small segment of liver parenchyma into the gallbladder lumen. The needle was removed and through the Yueh catheter, an Amplatz wire was coiled within the gallbladder lumen. Over the wire, dilatation was performed until an 8 Finnish locking pigtail catheter could be placed. This was connected to CODY bulb suction and secured to the skin with a sterile dressing and suture. Summary: Successful CT-guided placement of a cholecystostomy tube. Electronically signed by: Ethan Calderón MD 07/27/2024 02:05 PM [facility]
--- NOTE | ~2024-07-25 | XR_ITS ---
EXAMINATION: XR CHEST CLINICAL INFORMATION: Preop COMPARISON: Chest radiograph 02/26/2022 TECHNIQUE: Frontal view of the chest was obtained. FINDINGS: Low lung volumes are present with the fourth anterior rib segments remain projection with the lung bases. Mild bibasilar airspace opacities are present. No effusions or pneumothoraces visualized. Cardiac silhouette is grossly normal in size. XR/XR chest 1V IMPRESSION: *Markedly low lung volumes. *Mild bibasilar airspace opacities. These findings represent atelectasis in the setting of low lung volumes. Electronically signed by: Evan Osullivan MD 07/26/2024 06:33 AM [facility]
[2024-07-25 21:35] VITALS: BP 106/73; PULSE 98; RESP 18; TEMP 36.8; O2SAT 95; BMI 23.7
[2024-07-25 22:07] LABS: Basophils Percent Auto 0.3 % (0-2); Eosinophils Percent Auto 0.1 % (0-4); Hematocrit 41.8 % (42.0-52.0); Imm Gran Pct Auto 0.6 % (0.0-0.4); Lymphocytes Absolute Auto 1.1 X10*3/uL (1.2-4.9); MANUAL DIFF FLAG SCAN; Mean Corpuscular HGB Conc 33.5 g/dl (31.0-36.0); Mean Corpuscular Hemoglobin 33.4 pg (27.0-33.0); Mean Corpuscular Volume 99.8 fL (80.0-98.0); Mean Platelet Volume 8.8 fL (9.4-12.4); Monocytes Absolute Auto 1.8 X10*3/uL (0.1-1.2); Monocytes Percent Auto 11.7 % (2-11); Neutrophils Absolute Auto 12.6 x10*3/uL (2.0-8.3); Neutrophils Percent Auto 80.3 % (45-73); Platelet Count 244 X10*3/uL (160-400); Red Blood Count 4.19 X10*6/uL (4.60-5.80); Red Cell Distribution Width 13.5 % (11.0-16.0); SCAN SMEAR FLAG 1; White Blood Count 15.6 X10*3/uL (4.8-10.8)
[2024-07-25 22:14] LABS: Appearance Urine Turbid; Color Urine Yellow; Glucose Urine UA Negative (Negative); Leukocyte Esterase Urine Negative (Negative); Nitrite Urine Negative (Negative); PH 8.5 (5.0-9.0); UMIC TRIGGER UACC YES; Urine Blood Negative (Negative); Urine Ketones Trace mg/dL (Negative); Urine Protein 30 (1+) mg/dL (Neg-Trace)
[2024-07-25 22:33] LABS: SLIDE REVIEW VERIFIED
[2024-07-25 22:36] LABS: Alanine Aminotransferase 30 U/L (0-40); Albumin Level 4.2 g/dL (3.5-5.0); Alkaline Phosphatase 75 U/L (39-117); Anion Gap 18 (12-20); Aspartate Amino Transferase 36 U/L (5-37); Bilirubin Total 1.9 mg/dL (0.0-1.0); Blood Urea Nitrogen 23 mg/dL (9-16); Calcium 9.7 mg/dL (8.4-10.2); Carbon Dioxide 23 mmol/L (22-29); Chloride 102 mmol/L (96-108); Creatinine Clr Calc Pharmacy 62.6; Estimated Glomerular Filt Rate > 60; Glucose Random 161 mg/dL (60-115); Potassium 3.8 mmol/L (3.3-5.1); Sodium 139 mmol/L (135-145); Total Protein 7.7 g/dL (6.5-8.0)
[2024-07-25 22:41] LABS: Bacteria Urine None Seen (None Seen); Hyaline Casts Urine 0-2 /LPF (0-2); RBC Urine 0-2 /HPF (0-2); Squamous Epithelial Cell Urine 0-2 /HPF (0-2); WBC Urine 0-5 /HPF (0-5)
[2024-07-26] VITALS (12 sets, daily range): BP systolic 135–159; BP diastolic 52–92; PULSE 70–103; RESP 16–21; TEMP 36.3–37.2; O2SAT 93–97
--- NOTE | 2024-07-26 | ECG_ITS ---
Test Reason : pre-op Blood Pressure : / mmHG Vent. Rate : 119 BPM Atrial Rate : 000 BPM P-R Int : 000 ms QRS Dur : 076 ms QT Int : 314 ms P-R-T Axes : 000 036 -51 degrees QTc Int : 441 ms Atrial fibrillation with rapid ventricular response with premature ventricular or aberrantly conducted complexes Nonspecific ST and T wave abnormality Abnormal ECG When compared with ECG of 03-APR-2019 13:31, Atrial fibrillation has replaced Sinus rhythm Vent. rate has increased BY [address] now depressed in Anterolateral leads Referred By: Raquel Dill Electronically Signed By:MEEK RAMÍREZ
[2024-07-26] MEDS: Morphine Sulfate 2 MG/ML CARTRIDGE IVPUSH ×2 (01:09→15:38)
[2024-07-26] MEDS: ondansetron HCL 4 MG/2 ML VIAL IVPUSH (01:09)
[2024-07-26] MEDS: 0.9 % Sodium Chloride 1,000 ML 999 ML IV (01:09)
--- NOTE | 2024-07-26 01:29 | ED.ABDPAIN ---
HPI - Abdominal Pain General Chief Complaint: Abdominal Pain Stated Complaint: rt side pain Time Seen by Provider: 07/26/24 01:29 EDT Source: patient Mode of arrival: ambulatory Limitations: no limitations History of Present Illness ED Provider: lanre BARNES narrative: Patient's history of atrial fibrillation hypotension on Eliquis comes here for sudden onset of pain in right upper abdomen since last night associated with nausea vomited once no fever no chills no diarrhea patient never had similar pain in the past no chest pain no shortness a breath Related Data Home Medications ?Medication ?Instructions ?Recorded ?Confirmed finasteride 5 mg tablet 5 mg PO DAILY 08/10/20 12/24/23 fluticasone propionate 50 1 spray intranasal DAILY 08/10/20 12/24/23 mcg/actuation nasal spray,suspension tamsulosin 0.4 mg capsule 0.4 mg PO DAILY 08/10/20 12/24/23 loratadine 10 mg tablet (Claritin) 10 mg PO DAILY 03/06/21 12/24/23 prednisone 5 mg tablet 5 mg PO DAILY 01/09/22 12/24/23 finasteride 5 mg tablet 5 mg PO DAILY 07/26/24 07/26/24 Previous Rx's ?Medication ?Instructions ?Recorded digoxin 125 mcg (0.125 mg) tablet 125 mcg PO .every other day 11/07/22 days #45 tabs metoprolol succinate 100 mg 150 mg (1.5 x 100 mg) PO DAILY 90 10/07/23 tablet,extended release 24 hr days #135 tabs apixaban 5 mg tablet (Eliquis) 5 mg PO BID #180 tabs 12/24/23 Allergies Allergy/AdvReac Type Severity Reaction Status Date / Time No Known Allergies Allergy Verified 07/25/24 21:40 Review of Systems Review of Systems Yes all other systems are reviewed and are negative [facility] Past Medical History Medical History Atrial arrhythmia PAF (paroxysmal atrial fibrillation) Surgical History History of loop recorder Family History Family History Father Myocardial infarct Mother No problems noted. Social History Social History Patient Tobacco Use Status: Former Tobacco user Smoked in Last 30 Days: No Use of substances other than those prescribed or required for medical reasons: No Advance Directives: No Advance Directives Information Provided: No Do you have a plan to hurt others: No Plan Current occupational status: retired Current occupation: Right Handed Physical Exam ED Vital Signs: Vital Signs - 24 hr 07/25/24 21:35 07/26/24 00:54 07/26/24 01:33 EDT Temperature 98.2 F 97.8 F 98.5 F Pulse Rate 98 89 90 Respiratory Rate 18 18 20 Blood Pressure 106/73 154/86 H 158/92 H Pulse Oximetry 95 97 97 Oxygen Delivery Method Room Air Room Air Room Air Oxygen Flow Rate 07/26/24 02:00 Temperature 98.4 F Pulse Rate 88 Respiratory Rate 16 Blood Pressure 139/74 Pulse Oximetry 96 Oxygen Delivery Method Nasal Cannula Oxygen Flow Rate 2 BMI result Body Mass Index 23.7 Appearance: Alert. Oriented X3. No acute distress. Eyes: No pallor or icterus ENT: Pharynx normal. Oral Mucosa moist Neck: Normal inspection. Neck supple. CVS: Normal heart rate and rhythm. Pulses normal. Respiratory: No respiratory distress. Equal air entry bilateral, no wheezing/rales/rhonchi Abdomen: Soft and tenderness right upper quadrant with guarding. Bowel sounds are present, no mass palpable, no CVA tenderness Skin: Skin warm and dry. Normal skin color. Normal skin turgor. Extremities: No lower extremity edema. No calf tenderness Neuro: Oriented X 3. No motor deficit. Medical Decision Making Medical Decision Making [facility] Narrative: Patient with upper abdominal pain CT scan showed acute cholecystitis with atrial fibula arnel Parks will admit patient to medical service Differential Diagnosis Differential Diagnoses: The differential diagnosis associated with the presentation includes Cholecystitis/kidney stone/appendicitis Admission/Observation Consideration of admission/observation: Escalation of care including admission/observation considered Consult Healthcare Provider Management of the patient was discussed with: Hospitalist Lab Data [facility] Lab Attestation statement: I reviewed the patient's lab results. 07/25/24 21:56 07/25/24 21:56 Labs: Lab Results 07/25/24 07/26/24 Range/Units 21:56 01:57 EST WBC 15.6 H (4.8-10.8) X10*3/uL RBC 4.19 L (4.60-5.80) X10*6/uL Hgb 14.0 (14.0-18.0) g/dl Hct 41.8 L (42.0-52.0) % MCV 99.8 H (80.0-98.0) fL MCH 33.4 H (27.0-33.0) pg MCHC 33.5 (31.0-36.0) g/dl RDW 13.5 (11.0-16.0) % Plt Count 244 (160-400) X10*3/uL MPV 8.8 L (9.4-12.4) fL Immature Gran % (Auto) 0.6 H (0.0-0.4) % Neut % (Auto) 80.3 H (45-73) % Lymph % (Auto) 7.0 L (20-40) % [place] % (Auto) 11.7 H (2-11) % Eos % (Auto) 0.1 (0-4) % Baso % (Auto) 0.3 (0-2) % Lymph # (Auto) 1.1 L (1.2-4.9) X10*3/uL [place] # (Auto) 1.8 H (0.1-1.2) X10*3/uL Eos # (Auto) 0.0 (0.0-0.4) X10*3/uL Baso # (Auto) 0.0 (0.0-0.2) X10*3/uL Abs Immat Gran (auto) 0.10 H (0.00-0.03) X10*3/uL Absolute Neuts (auto) 12.6 H (2.0-8.3) x10*3/uL Absolute Nucleated RBC 0.000 (0.0-0.012) X10*3/uL Nucleated RBC % (auto) 0.0 (0.0-0.2) /100WBC Smear Tech's Comments VERIFIED Sodium 139 (135-145) mmol/L Potassium 3.8 (3.3-5.1) mmol/L Chloride 102 (96-108) mmol/L Carbon Dioxide 23 (22-29) mmol/L Anion Gap 18 (12-20) BUN 23 H (9-16) mg/dL Creatinine 0.93 (0.5-1.4) mg/dL Estim Creat Clear Calc 62.6 Estimated GFR > 60 Random Glucose 161 H (60-115) mg/dL Lactic Acid 1.1 (0.5-2.0) mmol/L Calcium 9.7 D (8.4-10.2) mg/dL Total Bilirubin 1.9 H (0.0-1.0) mg/dL AST 36 (5-37) U/L ALT 30 (0-40) U/L Alkaline Phosphatase 75 (39-117) U/L Total Protein 7.7 (6.5-8.0) g/dL Albumin 4.2 (3.5-5.0) g/dL Urine Color Yellow Urine Appearance Turbid Urine pH 8.5 (5.0-9.0) Ur Specific [place] 1.020 (1.005-1.025) Urine Protein 30 (1+) H (Neg-Trace) mg/dL Urine Glucose (UA) Negative (Negative) mg/dL Urine Ketones Trace (Negative) mg/dL Urine Blood Negative (Negative) Urine Nitrite Negative (Negative) Ur Leukocyte Esterase Negative (Negative) Urine RBC 0-2 (0-2) /HPF Urine WBC 0-5 (0-5) /HPF Ur Squamous Epith Cells 0-2 (0-2) /HPF Urine Bacteria None Seen (None Seen) Hyaline Casts 0-2 (0-2) /LPF Independent Interpretation I performed an independent interpretation of an: EKG and CT Scan Interpretation: Atrial fibrillation heart rate 119 beats per minute nonspecific STT wave changes no acute ischemia Radiology Impression Discussion of test interpretation with radiology: I have reviewed the radiologist's reading. Radiologist Impression: CT/CT abdomen pelvis w IV con IMPRESSION: *Possible acute cholecystitis. Radiodense cholelithiasis is noted within the gallbladder lumen. A small quantity of pericholecystic fluid is present in combination with trace perihepatic fluid. This constellation of findings could be secondary to acute cholecystitis. This findings are suspicious for acute cholecystitis but not definitive for acute cholecystitis. As clinically indicated, consider further evaluation with right upper quadrant ultrasound. *Marked sigmoid diverticulosis. No evidence of acute diverticulitis. Electronically signed by: Evan Osullivan MD 07/26/2024 01:53 AM EST [facility] Medications Administered Generic Name Dose Route Start Last Admin Trade Name Freq PRN Reason Stop Dose Admin Lactated Ringer's 1,000 mls @ 80 mls/hr 07/26/24 03:30 07/26/24 04:28 Lr IVCONT 07/27/24 03:29 80 mls/hr .[id number] AMY Administration Discontinued Medications Generic Name Dose Route Start Last Admin Trade Name Freq PRN Reason Stop Dose Admin Sodium Chloride 1,000 mls @ 999 mls/hr 07/26/24 01:37 EST 07/26/24 02:50 Ns IV 07/26/24 02:37 Infused .Q1H1M ONE Infusion Piperacillin Sod/Tazobactam 50 mls @ 100 mls/hr 07/26/24 02:53 07/26/24 03:21 Sod 3.375 gm/ Sodium Chloride IV 07/26/24 03:22 100 mls/hr ONCE ONE Administration Iohexol 85 ml 07/26/24 01:32 EST 07/26/24 01:32 EST Iohexol 350 Mg/Ml 100 Ml Infus..Btl IV 07/26/24 01:33 EST 85 ml ONCE ONE Administration Morphine Sulfate 2 mg 07/26/24 01:37 EST 07/26/24 01:09 EST Morphine Sulfate 2 Mg/Ml Cartridge IVPUSH 07/26/24 01:38 EST 2 mg ONCE ONE Administration Protocol Ondansetron HCl 4 mg 07/26/24 01:37 EST 07/26/24 01:09 EST Ondansetron Hcl 4 Mg/2 Ml Vial IVPUSH 07/26/24 01:38 EST 4 mg ONCE ONE Administration Discharge Plan Discharge Clinical Impression: Acute cholecystitis, Atrial fibrillation Patient Disposition: Admitted As Inpatient
[2024-07-26] MEDS: iohexoL 350 MG/ML 100 ML INFUS..BTL 85 ML IV (01:32)
--- NOTE | 2024-07-26 01:34 | MHC.EDTECH ---
Assumed care of patient at this time,pt brought from the waiting room,changed into hospital attire,vitals taken,patient appears to be very uncomfortable, at bedside,provider at bedside at this time,call delgado in reach
[2024-07-26 02:10] LABS: Lactic Acid 1.1 mmol/L (0.5-2.0)
[2024-07-26] MEDS: Piperacillin Sodium/Tazobactam 3.375 GM in 0.9 % Sodium Chloride 50 ML IV ×3 (03:21→17:58)
--- NOTE | 2024-07-26 03:32 | PM.IMHP ---
History of Present Illness Date of Service: 07/26/24 Attending physician on admission: Raquel Dill Chief Complaint: Abdominal pain Mihir Pitts is a delightful 89 years old man with past medical history significant for atrial fibrillation apparently on Eliquis presents to the emergency department complaining of right lower quadrant pain that started many years ago but seems like over the last several hours the patient has been getting worse. He described the pain as constant, without radiation and intensity 10/10. The pain increases with movement. He denied any associated symptoms such as nausea, vomiting or diarrhea. He did not report any fever, chills, headache, palpitations, pain with urination or hematuria. He did not report any acute cardiopulmonary symptoms. He denied alcohol abuse, tobacco smoking or illicit drug use. He is a former smoker. Patient did not recall the name of his medications. Medications despite history showed that patient Piela prescription of prednisone and amoxicillin. In the ED, he was found to have normal vital signs. Blood workup showed leukocytosis of 15.6. There is no lactic acidosis. Hemoglobin and platelets are normal. There are no electrolyte imbalances. BUN is 23 and creatinine 0.93. LFTs are normal except for elevated bilirubin --> 1.9. Urinalysis did not showed findings of urinary tract infection or hematuria. Abdomen pelvis CT scan showed possible acute cholecystitis, cholelithiasis, diverticulosis without diverticulitis. There is no common bile duct dilatation. ED tx: NS 1 L bolus, morphine 2 mg IV, Zofran 4 mg IV, Zosyn 3.375 mg IV. Review of Systems Review of Systems: All 12 systems were reviewed and normal except as noted in HPI. [facility] Medical History Atrial arrhythmia PAF (paroxysmal atrial fibrillation) Family History Father Myocardial infarct Mother No problems noted. Surgical History History of loop recorder Social History Patient Tobacco Use Status: Former Tobacco user Smoked in Last 30 Days: No Use of substances other than those prescribed or required for medical reasons: No Advance Directives: No Advance Directives Information Provided: No Do you have a plan to hurt others: No Plan Current occupational status: retired Current occupation: Right Handed Meds Allergies Allergy/AdvReac Type Severity Reaction Status Date / Time No Known Allergies Allergy Verified 07/25/24 21:40 Active Medications: Current Medications Acetaminophen (Acetaminophen 325 Mg Tablet) 975 mg PO Q6H PRN PRN Reason: Pain, Mild (Pain Scale 1-3), fever or headache Lactated Ringer's (Lr) 1,000 mls @ 80 mls/hr IVCONT .[id number] REPLACED BY [facility] Stop: 07/27/24 03:29 Ondansetron HCl (Ondansetron Hcl 4 Mg/2 Ml Vial) 4 mg IVPUSH Q8H PRN PRN Reason: Nausea and Vomiting Sodium Chloride (0.9 % Sodium Chloride Flush 3 Ml Syringe) 3 ml IVFLUSH QSHIFT REPLACED BY [facility] Home Medications ?Medication ?Instructions ?Recorded ?Confirmed ?Last Taken ?Type finasteride 5 mg tablet 5 mg PO DAILY 08/10/20 12/24/23 Unknown History fluticasone propionate 50 1 spray intranasal DAILY 08/10/20 12/24/23 Unknown History mcg/actuation nasal spray,suspension tamsulosin 0.4 mg capsule 0.4 mg PO DAILY 08/10/20 12/24/23 Unknown History loratadine 10 mg tablet (Claritin) 10 mg PO DAILY 03/06/21 12/24/23 Unknown History prednisone 5 mg tablet 5 mg PO DAILY 01/09/22 12/24/23 Unknown History finasteride 5 mg tablet 5 mg PO DAILY 07/26/24 07/26/24 1 Day Ago History ~07/25/24 metoprolol succinate 100 mg 150 mg PO DAILY 07/26/24 07/26/24 Unknown History tablet,extended release 24 hr Physical Exam Vital Signs and Narrative: Vital Signs: Last Vital Signs Temp 98.4 F 07/26/24 02:00 Pulse 88 07/26/24 02:00 Resp 16 07/26/24 02:00 BP 139/74 07/26/24 02:00 Pulse Ox 96 07/26/24 02:00 O2 Del Method Nasal Cannula 07/26/24 02:00 O2 Flow Rate 2 07/26/24 02:00 BMI result Body Mass Index 23.7 Constitutional - Awake and Alert, No apparent distress. Pleasant. Cooperative. HEENT - PER, EOMI. Normal sclerae. Dry oral mucosa. Heart - Irregular rhythm. Normal rate. (+) murmur. Lungs - Normal lung expansion, Normal respiratory effort, No respiratory distress, CTA bilaterally Abdomen - Nondistended. RUQ tenderness, (+) guarding, no rebound. Normal BS. Extremities - no calf tenderness bilaterally, no swelling Musculoskeletal - Normal inspection, normal ROM Skin - Warm/Dry Neurological - Alert & oriented x3. No focal weakness grossly noted. Normal speech. Psychological - Appropriate affect Results Labs 07/25/24 21:56 07/25/24 21:56 Labs: Laboratory Results - last 24 hr 07/25/24 07/26/24 21:56 01:57 EST MCV 99.8 H MCH 33.4 H MCHC 33.5 RDW 13.5 Plt Count 244 MPV 8.8 L Immature Gran % (Auto) 0.6 H Neut % (Auto) 80.3 H Lymph % (Auto) 7.0 L [place] % (Auto) 11.7 H Eos % (Auto) 0.1 Baso % (Auto) 0.3 Lymph # (Auto) 1.1 L [place] # (Auto) 1.8 H Eos # (Auto) 0.0 Baso # (Auto) 0.0 Abs Immat Gran (auto) 0.10 H Absolute Neuts (auto) 12.6 H Absolute Nucleated RBC 0.000 Nucleated RBC % (auto) 0.0 Smear Tech's Comments VERIFIED Anion Gap 18 Estim Creat Clear Calc 62.6 Estimated GFR > 60 Random Glucose 161 H Lactic Acid 1.1 Calcium 9.7 D Total Bilirubin 1.9 H AST 36 ALT 30 Alkaline Phosphatase 75 Total Protein 7.7 Albumin 4.2 Urine Color Yellow Urine Appearance Turbid Urine pH 8.5 Ur Specific [place] 1.020 Urine Protein 30 (1+) H Urine Glucose (UA) Negative Urine Ketones Trace Urine Blood Negative Urine Nitrite Negative Ur Leukocyte Esterase Negative Urine RBC 0-2 Urine WBC 0-5 Ur Squamous Epith Cells 0-2 Urine Bacteria None Seen Hyaline Casts 0-2 Imaging Radiologist's Impressions: Impressions Abdomen/Pelvis CT 07/25/24 23:00 IMPRESSION: *Possible acute cholecystitis. Radiodense cholelithiasis is noted within the gallbladder lumen. A small quantity of pericholecystic fluid is present in combination with trace perihepatic fluid. This constellation of findings could be secondary to acute cholecystitis. This findings are suspicious for acute cholecystitis but not definitive for acute cholecystitis. As clinically indicated, consider further evaluation with right upper quadrant ultrasound. *Marked sigmoid diverticulosis. No evidence of acute diverticulitis. Electronically signed by: Evan Osullivan MD 07/26/2024 01:53 AM [facility] Assessment and Plan (1) Acute cholecystitis: Status: Acute (2) Atrial fibrillation: Qualifiers: Atrial fibrillation type: paroxysmal Qualified Code(s): I48.0 - Paroxysmal atrial fibrillation Status: Acute Plan Mihir Pitts is a 89 y/o man admitted with: Right upper quadrant pain, likely secondary to acute cholecystitis. Admit to hospitalist service. NPO. Continue IV fluids. Continue empiric IV antibiotic therapy and IV pain meds. Check abdominal US to confirm cholecystitis. . Surgery consult. If surgery is considered I would recommend to hold Eliquis at least for 3-5 days. Rapid atrial fibrillation per ECG. Telemetry. Continue digoxin and metoprolol. Eliquis on hold for possible surgical intervention. BPH. Continue tamsulosin and finasteride. *Patient does not recall the names of his medications. I tried to contact patient's twice this morning but she did not answer. DVT prophylaxis: SCDs, Eliquis on hold Code status: Full Patient will need hospitalization for at least 2 midnights for acute cholecystitis treatment with IV pain meds and antibiotics; patient will also need evaluation by Surgical Service. Quality Stroke Does the patient have a stroke diagnosis?: No VTE Prior VTE?: No VTE Risk Level:: Medical - moderate - high VTE Device Contraindication: N/A - Device Ordered VTE Drug Contraindication: Treatment Not Indicated
--- NOTE | 2024-07-26 04:15 | MHC.EDTECH ---
EKG completed per hospitalist order,sent picture via tiger text, vitals taken, patient was a two assist to stand and use urinal,patient is very shakey an unsteady at this time,urinated 125MLS of dark yellow urine. call delgado in reach
[2024-07-26] MEDS: Lactated Ringers 1,000 ML 80 ML IVCONT (04:28)
[2024-07-26 05:12] LABS: INTERNATIONAL NORM RATIO 1.6 (0.9-1.1); Prothrombin Time 18.5 SEC (10.9-12.4)
[2024-07-26 05:21] LABS: Digoxin 0.3 ng/mL (0.8-2.0)
--- NOTE | 2024-07-26 06:44 | MHC.EDTECH ---
Patient placed on the ekg monitor tech per hospitalist order
[2024-07-26] MEDS: Metoprolol Succinate ER 50 MG TAB.ER.24H 150 MG PO (06:49)
[2024-07-26] MEDS: Digoxin 0.5 MG/2 ML AMPUL 0.25 MG IVPUSH (07:04)
[2024-07-26] MEDS: 0.9 % Sodium Chloride Flush 3 ML SYRINGE IVFLUSH ×3 (07:11→20:10)
[2024-07-26] MEDS: Pantoprazole Sodium 40 MG/10 ML VIAL IVPUSH (07:59)
--- NOTE | 2024-07-26 08:30 | PHA.MEDREC ---
Pharmacy Consult ? Medication Reconciliation Pharmacy has completed the medication reconciliation. Spoke with on phone who listed all medications. mentioned patient will be having dental surgery on saturday07/29/24 and patient is supposed to stop eliquis 3 days prior and also start amoxicillin 2 days prior. Patient takes his digoxin q2d and is due on 07/26/24. Dr. aruajo notified med rec is complete.
--- NOTE | 2024-07-26 08:57 | PC.NURSE ---
updated via phone to care plan
--- NOTE | 2024-07-26 11:32 | PC.NURSE ---
pt alert and oriented x3, he is somewhat forgetful and not a good historian of his care.
--- NOTE | 2024-07-26 11:57 | P.EN_ITS ---
Event Note Date of Service: 07/26/24 Event Note: 89-year-old gentleman with past medical history of atrial fibrillation on Eliquis, chronic right upper quadrant pain presented to [facility] due to worsening right upper quadrant pain worse with movement, with no associated nausea vomiting diarrhea, no fever chills no shortness of breath, in the emergency room noted to have elevated WBC 15.6, stable renal function, elevated total bili 1.9, normal urinalysis, CT abdomen and pelvis showed possible acute cholecystitis with cholelithiasis, diverticulosis without Diverticulitis. Chest x-ray showed atelectasis. Abdominal ultrasound showed Cholelithiasis with thickened gallbladder wall, 3.5 cm mass or irregular shaped polyp along the anterior wall of the gallbladder and mildly dilated common bile duct. Patient awake alert complaining of right upper quadrant abdominal pain with movement Abdomen soft, no tenderness right upper quadrant bowel sounds audible Assessment and plan Abdominal pain with leukocytosis and elevated total bili but patient has no fevers no abdominal pain with palpation Will resume diet, analgesics await surgical input, hold Eliquis for now continue compression boots, NPO after midnight. Follow labs. Time Spent With Patient Time: Total time managing care of this patient today ____ minutes.
[2024-07-26 12:04] LABS: Glucose, Whole Blood 127 mg/dL (60-115)
[2024-07-26] MEDS: Lidocaine 4 % Patch ADH..PATCH 1 PATCH TRANSDERMA (12:15)
[2024-07-26] MEDS: oxyCODONE HCl Immed Release 5 MG TABLET PO (12:16)
--- NOTE | 2024-07-26 15:23 | P.CONGS_ITS ---
History of Present Illness Consult details Consult date: 07/26/24 Narrative: Patient is an 89-year-old male with a plethora of comorbidities and intercurrent medical problems including atrial fibrillation with Eliquis medication who presents with a longstanding history of right upper quadrant symptoms and now has had an episode of several hours to a day of progressively worsening right upper quadrant pain. Patient underwent workup in the emergency department including CT scan and ultrasound demonstrated findings consistent with acute cholecystitis. Chart was reviewed and patient evaluated. FORMERLY [facility], [facility] Past Medical History Medical History Atrial arrhythmia PAF (paroxysmal atrial fibrillation) Family History Family History Father Myocardial infarct Mother No problems noted. Surgical History Surgical History History of loop recorder Social History Social History Patient Tobacco Use Status: Former Tobacco user Current occupational status: retired Current occupation: [employer] Allergies Allergy/AdvReac Type Severity Reaction Status Date / Time No Known Allergies Allergy Verified 07/25/24 21:40 Active Medications: Current Medications Acetaminophen (Acetaminophen 325 Mg Tablet) 975 mg PO Q6H PRN PRN Reason: Pain, Mild (Pain Scale 1-3), fever or headache Digoxin (Digoxin 0.125 Mg Tablet) 0.125 mg PO Q2D@0900 [facility]; Protocol Finasteride (Finasteride 5 Mg Tablet) 5 mg PO BEDTIME [facility] Fluticasone Propionate (Fluticasone Propionate Nasal 16 Gm [place]) 1 spray NOSTRIL-B BEDTIME [facility] Piperacillin Sod/Tazobactam (Sod 3.375 gm/ Sodium Chloride) 50 mls @ 100 mls/hr IV Q8H [facility] Last Infusion: 07/26/24 12:09 Dose: Infused Metoprolol Succinate (Metoprolol Succinate Er 50 Mg Tab.Er.24h) 150 mg PO DAILY [facility]; Protocol Last Admin: 07/26/24 06:49 Dose: 150 mg Metoprolol Succinate (Metoprolol Succinate Er 50 Mg Tab.Er.24h) 150 mg PO DAILY [facility]; Protocol Morphine Sulfate (Morphine Sulfate 2 Mg/Ml Cartridge) 2 mg IVPUSH Q4H PRN; Protocol PRN Reason: Pain, Severe (Pain Scale 7-10) Multivitamins/Vitamin C (Multivitamin Tablet) 1 tab PO DAILY [facility] Ondansetron HCl (Ondansetron Hcl 4 Mg/2 Ml Vial) 4 mg IVPUSH Q8H PRN PRN Reason: Nausea and Vomiting Pantoprazole Sodium (Pantoprazole Sodium 40 Mg/10 Ml Vial) 40 mg IVPUSH DAILY [facility] Last Admin: 07/26/24 07:59 Dose: 40 mg Prednisone (Prednisone 5 Mg Tablet) 5 mg PO BEDTIME [facility] Sodium Chloride (0.9 % Sodium Chloride Flush 3 Ml Syringe) 3 ml IVFLUSH QSHIFT [facility] Last Admin: 07/26/24 07:11 Dose: 3 ml Tamsulosin HCl (Tamsulosin Hcl 0.4 Mg Capsule) 0.4 mg PO BID [facility] Home Medications ?Medication ?Instructions ?Recorded ?Confirmed ?Last Taken ?Type finasteride 5 mg tablet 5 mg PO BEDTIME 08/10/20 07/26/24 07/25/24 History fluticasone propionate 50 1 spray intranasal BEDTIME 08/10/20 07/26/24 Unknown History mcg/actuation nasal spray,suspension tamsulosin 0.4 mg capsule 0.4 mg PO BID 08/10/20 07/26/24 07/25/24 History loratadine 10 mg tablet (Claritin) 10 mg PO DAILY 03/06/21 07/26/24 07/25/24 History prednisone 5 mg tablet 5 mg PO BEDTIME 01/09/22 07/26/24 07/25/24 History amoxicillin 500 mg capsule 500 mg PO TID 07/26/24 Unknown History digoxin 125 mcg (0.125 mg) tablet 125 mcg PO Q2D@0900 07/26/24 07/26/24 Unknown History [id number] acid-vit 1 tab PO DAILY 07/26/24 07/26/24 07/25/24 History K-lycop 400 mcg-20 mcg-370 mcg tablet (Men's 50 Plus Multivitamin) Physical Exam 2 Vital Signs: Vital Signs: Last Vital Signs Temp 97.7 F 07/26/24 15:02 Pulse 78 07/26/24 15:02 Resp 17 07/26/24 15:02 BP 148/52 H 07/26/24 15:02 Pulse Ox 96 07/26/24 15:02 O2 Del Method Nasal Cannula 07/26/24 15:02 O2 Flow Rate 2 07/26/24 15:02 BMI result Body Mass Index 23.7 Const: Other: Elderly male minimally communicative but able to express right upper quadrant discomfort GI: Other: Distended abdomen. Marked right upper quadrant tenderness and positive Purcell's sign. Results Labs 07/25/24 21:56 07/25/24 21:56 Labs: Abnormal lab results 07/25/24 07/26/24 07/26/24 Range/Units 21:56 04:55 11:59 WBC 15.6 H (4.8-10.8) X10*3/uL RBC 4.19 L (4.60-5.80) X10*6/uL Hct 41.8 L (42.0-52.0) % MCV 99.8 H (80.0-98.0) fL MCH 33.4 H (27.0-33.0) pg MPV 8.8 L (9.4-12.4) fL Immature Gran % (Auto) 0.6 H (0.0-0.4) % Neut % (Auto) 80.3 H (45-73) % Lymph % (Auto) 7.0 L (20-40) % [place] % (Auto) 11.7 H (2-11) % Lymph # (Auto) 1.1 L (1.2-4.9) X10*3/uL [place] # (Auto) 1.8 H (0.1-1.2) X10*3/uL Abs Immat Gran (auto) 0.10 H (0.00-0.03) X10*3/uL Absolute Neuts (auto) 12.6 H (2.0-8.3) x10*3/uL PT 18.5 H (10.9-12.4) SEC INR 1.6 H (0.9-1.1) BUN 23 H (9-16) mg/dL POC Glucose 127 H (60-115) mg/dL Random Glucose 161 H (60-115) mg/dL Total Bilirubin 1.9 H (0.0-1.0) mg/dL Urine Protein 30 (1+) H (Neg-Trace) mg/dL Digoxin 0.3 L (0.8-2.0) ng/mL Short CBC 07/25/24 Range/Units 21:56 WBC 15.6 H (4.8-10.8) X10*3/uL Hgb 14.0 (14.0-18.0) g/dl Hct 41.8 L (42.0-52.0) % Plt Count 244 (160-400) X10*3/uL BMP 07/25/24 21:56 Sodium 139 Potassium 3.8 Chloride 102 Carbon Dioxide 23 BUN 23 H Creatinine 0.93 Calcium 9.7 D Liver Function 07/25/24 Range/Units 21:56 Total Bilirubin 1.9 H (0.0-1.0) mg/dL AST 36 (5-37) U/L ALT 30 (0-40) U/L Alkaline Phosphatase 75 (39-117) U/L Albumin 4.2 (3.5-5.0) g/dL Urine 07/25/24 Range/Units 21:56 Urine Color Yellow Urine Appearance Turbid Urine pH 8.5 (5.0-9.0) Ur Specific [place] 1.020 (1.005-1.025) Urine Protein 30 (1+) H (Neg-Trace) mg/dL Urine Glucose (UA) Negative (Negative) mg/dL All other labs normal. Assessment and Plan (1) Acute cholecystitis: Status: Acute Plan Patient is a very suboptimal/high-risk surgical candidate. He would most probably benefit from IR drainage of his gallbladder. Consult order will be placed by me for this for tomorrow. In the meantime, continue IV antibiotics and liquids diet Procedures Date of Service Date of Service: 07/26/24
[2024-07-26] MEDS: predniSONE 5 MG TABLET PO (19:59)
[2024-07-26] MEDS: Finasteride 5 MG TABLET PO (19:59)
[2024-07-26] MEDS: Tamsulosin HCL 0.4 MG CAPSULE PO (19:59)
[2024-07-27] VITALS (7 sets, daily range): BP systolic 124–135; BP diastolic 60–77; PULSE 80–120; RESP 16–22; TEMP 36–38.5; O2SAT 89–96
[2024-07-27] MEDS: Piperacillin Sodium/Tazobactam 3.375 GM in 0.9 % Sodium Chloride 50 ML IV ×3 (02:58→18:39)
[2024-07-27] MEDS: Morphine Sulfate 2 MG/ML CARTRIDGE IVPUSH ×2 (04:52→11:47)
[2024-07-27 06:31] LABS: Basophils Percent Auto 0.2 % (0-2); Eosinophils Absolute Auto 0.2 X10*3/uL (0.0-0.4); Hematocrit 40.2 % (42.0-52.0); Hemoglobin 13.4 g/dl (14.0-18.0); Imm Gran Abs Auto 0.16 X10*3/uL (0.00-0.03); Imm Gran Pct Auto 0.9 % (0.0-0.4); Lymphocytes Absolute Auto 0.6 X10*3/uL (1.2-4.9); Lymphocytes Percent Auto 3.3 % (20-40); MANUAL DIFF FLAG SCAN; Mean Corpuscular HGB Conc 33.3 g/dl (31.0-36.0); Mean Corpuscular Hemoglobin 33.3 pg (27.0-33.0); Mean Platelet Volume 9.4 fL (9.4-12.4); Monocytes Absolute Auto 1.5 X10*3/uL (0.1-1.2); Monocytes Percent Auto 8.7 % (2-11); Neutrophils Absolute Auto 15.1 x10*3/uL (2.0-8.3); Neutrophils Percent Auto 85.9 % (45-73); Platelet Count 202 X10*3/uL (160-400); Red Blood Count 4.02 X10*6/uL (4.60-5.80); Red Cell Distribution Width 13.3 % (11.0-16.0); SCAN SMEAR FLAG 1; White Blood Count 17.6 X10*3/uL (4.8-10.8)
[2024-07-27 06:54] LABS: SLIDE REVIEW VERIFIED
[2024-07-27 07:18] LABS: Alanine Aminotransferase 20 U/L (0-40); Albumin Level 3.3 g/dL (3.5-5.0); Alkaline Phosphatase 64 U/L (39-117); Anion Gap 12 (12-20); Aspartate Amino Transferase 40 U/L (5-37); Bilirubin Direct 0.8 mg/dL (0.0-0.5); Bilirubin Total 2.1 mg/dL (0.0-1.0); Blood Urea Nitrogen 27 mg/dL (9-16); Calcium 9.1 mg/dL (8.4-10.2); Carbon Dioxide 24 mmol/L (22-29); Chloride 105 mmol/L (96-108); Estimated Glomerular Filt Rate > 60; Glucose Random 116 mg/dL (60-115); Potassium 4.2 mmol/L (3.3-5.1); Sodium 137 mmol/L (135-145); Total Protein 6.4 g/dL (6.5-8.0)
[2024-07-27] MEDS: Lactated Ringers 1,000 ML 80 ML IVCONT (07:46)
[2024-07-27] MEDS: Multivitamin TABLET 1 TAB PO (07:48)
[2024-07-27] MEDS: Tamsulosin HCL 0.4 MG CAPSULE PO ×2 (07:48→20:24)
[2024-07-27] MEDS: Pantoprazole Sodium 40 MG/10 ML VIAL IVPUSH (07:48)
[2024-07-27] MEDS: Metoprolol Succinate ER 100 MG TAB.ER.24H PO (07:48)
[2024-07-27] MEDS: oxyCODONE HCl Immed Release 5 MG TABLET PO ×2 (07:48→12:54)
--- NOTE | 2024-07-27 08:58 | PM.PNGS ---
Subjective Subjective Date of Service: 07/27/24 Interval history: Continues to c/o RUQ pain. Physical Exam Vital Signs: Vital Signs: Last Vital Signs Temp 97.3 F 07/27/24 07:31 Pulse 93 07/27/24 07:31 Resp 20 07/27/24 07:31 BP 124/64 07/27/24 07:31 Pulse Ox 95 07/27/24 07:31 O2 Del Method Nasal Cannula 07/27/24 07:31 O2 Flow Rate 2 07/27/24 07:31 BMI result Body Mass Index 23.7 Const: General: comfortable, no acute distress and alert Resp: Effort & Inspection: able to speak in complete sentences, no respiratory distress and no use of accessory muscles GI: Inspection: No distended Palpation (GI): Soft to palpation, Tenderness to palpation present (GI) in the RUQ and Purcell's sign positive and no guarding Skin: General skin exam: no rashes or lesions noted Objective Data Active Medications Acetaminophen (Acetaminophen 325 Mg Tablet) 975 mg PO Q6H PRN PRN Reason: Pain, Mild (Pain Scale 1-3), fever or headache Digoxin (Digoxin 0.125 Mg Tablet) 0.125 mg PO Q2D@0900 [facility]; Protocol Finasteride (Finasteride 5 Mg Tablet) 5 mg PO BEDTIME [facility] Last Admin: 07/26/24 19:59 Dose: 5 mg Documented By: MISSAEL Fluticasone Propionate (Fluticasone Propionate Nasal 16 Gm [place]) 1 spray NOSTRIL-B BEDTIME [facility] Last Admin: 07/26/24 20:10 Dose: Not Given Documented By: MISSAEL Non-Admin Reason: Patient Refused Piperacillin Sod/Tazobactam (Sod 3.375 gm/ Sodium Chloride) 50 mls @ 100 mls/hr IV Q8H [facility] Last Infusion: 07/27/24 03:32 Dose: Infused Documented By: SAPNA Lactated Ringer's (Lr) 1,000 mls @ 80 mls/hr IVCONT .[id number] [facility] Last Admin: 07/27/24 07:46 Dose: 80 mls/hr Documented By: TRISH Metoprolol Succinate (Metoprolol Succinate Er 100 Mg Tab.Er.24h) 100 mg PO DAILY [facility]; Protocol Last Admin: 07/27/24 07:48 Dose: 100 mg Documented By: TRISH Morphine Sulfate (Morphine Sulfate 2 Mg/Ml Cartridge) 2 mg IVPUSH Q4H PRN; Protocol PRN Reason: Pain, Severe (Pain Scale 7-10) Last Admin: 07/27/24 04:52 Dose: 2 mg Documented By: SAPNA Multivitamins/Vitamin C (Multivitamin Tablet) 1 tab PO DAILY [facility] Last Admin: 07/27/24 07:48 Dose: 1 tab Documented By: TRISH Ondansetron HCl (Ondansetron Hcl 4 Mg/2 Ml Vial) 4 mg IVPUSH Q8H PRN PRN Reason: Nausea and Vomiting Oxycodone HCl (Oxycodone Hcl Immed Release 5 Mg Tablet) 5 mg PO Q6H PRN PRN Reason: Pain, Moderate(Pain Scale 4-6) Last Admin: 07/27/24 07:48 Dose: 5 mg Documented By: TRISH Pantoprazole Sodium (Pantoprazole Sodium 40 Mg/10 Ml Vial) 40 mg IVPUSH DAILY [facility] Last Admin: 07/27/24 07:48 Dose: 40 mg Documented By: TRISH Prednisone (Prednisone 5 Mg Tablet) 5 mg PO BEDTIME [facility] Last Admin: 07/26/24 19:59 Dose: 5 mg Documented By: MISSAEL Sodium Chloride (0.9 % Sodium Chloride Flush 3 Ml Syringe) 3 ml IVFLUSH QSHIFT [facility] Last Admin: 07/27/24 07:48 Dose: Not Given Documented By: TRISH Non-Admin Reason: IV Running Tamsulosin HCl (Tamsulosin Hcl 0.4 Mg Capsule) 0.4 mg PO BID [facility] Last Admin: 07/27/24 07:48 Dose: 0.4 mg Documented By: TRISH Labs 07/27/24 05:33 07/27/24 05:33 Labs: Laboratory Results - last 24 hr 07/26/24 07/27/24 11:59 05:33 MCV 100.0 H MCH 33.3 H MCHC 33.3 RDW 13.3 Plt Count 202 MPV 9.4 Immature Gran % (Auto) 0.9 H Neut % (Auto) 85.9 H Lymph % (Auto) 3.3 L [place] % (Auto) 8.7 Eos % (Auto) 1.0 Baso % (Auto) 0.2 Lymph # (Auto) 0.6 L [place] # (Auto) 1.5 H Eos # (Auto) 0.2 Baso # (Auto) 0.0 Abs Immat Gran (auto) 0.16 H Absolute Neuts (auto) 15.1 H Absolute Nucleated RBC 0.000 Nucleated RBC % (auto) 0.0 Smear Tech's Comments VERIFIED Anion Gap 12 Estim Creat Clear Calc 57.0 Estimated GFR > 60 POC Glucose 127 H Random Glucose 116 H Calcium 9.1 D Total Bilirubin 2.1 H Direct Bilirubin 0.8 H AST 40 H ALT 20 Alkaline Phosphatase 64 Total Protein 6.4 L Albumin 3.3 L Procedures Date of Service Date of Service: 07/27/24 Progress Note: A&P Assessment and plan (1) Acute cholecystitis: Status: Acute Plan WBC trending up today, remains tender in the RUQ. Cont IV abx. Plan for IR cholecystostomy tube today. NPO. Time Spent With Patient Time: Total time managing care of this patient today ____ minutes. Quality Stroke Does the patient have a stroke diagnosis?: No VTE Prior VTE?: No VTE Risk Level:: Medical - moderate - high VTE Device Contraindication: N/A - Device Ordered VTE Drug Contraindication: Treatment Not Indicated
--- NOTE | 2024-07-27 14:14 | MHC.CM.PN ---
IMM 07/27/24, EMR REVIEWED, PT W/ACUTE CHOLEYLITHIASIS AND CHOLECYSTITIS, CM MET W/PT WHO REPORTS HE LIVES W/ AND DTR, PT REPORTS HE IS INDEP W/CARE, DENIES USE OF DME AND HAS A [employer], PCP VERIFIED, PT VERIFIES ROBE BECERRA IS HCP, COPY REQUESTED.
--- NOTE | 2024-07-27 15:49 | P.PNIM_ITS ---
Subjective Subjective Date of Service: 07/27/24 Interval History: Being followed for right upper quadrant pain/acute cholecystitis. Complaining of right upper quadrant pain underwent cholecystostomy tube placement by IR, postprocedure continued to have persistent abdominal pain, no fevers no chills no acute events overnight. Review of Systems All other symptoms reviewed and are negative Physical Exam 2 Vital Signs: Vital Signs: Last Vital Signs Temp 98.3 F 07/27/24 15:25 Pulse 120 H 07/27/24 15:25 Resp 16 07/27/24 15:25 BP 135/77 07/27/24 15:25 Pulse Ox 89 L 07/27/24 15:25 O2 Del Method Nasal Cannula 07/27/24 15:25 O2 Flow Rate 4 07/27/24 15:25 BMI result Body Mass Index 23.7 Const: Other: General awake alert, in no acute distress. Neck is supple no JVD. CVS regular rate rhythm, Respiratory lungs clear to auscultation, no respiratory distress, no wheeze, no rhonchi. Gastrointestinal right upper quadrant abdominal tenderness, bowel sounds audible, no guarding , no rigidity. Extremities no edema. Neuro non focal, moving all 4 extremity speech clear. Skin no rash Objective Data Active Medications Acetaminophen (Acetaminophen 325 Mg Tablet) 975 mg PO Q6H PRN PRN Reason: Pain, Mild (Pain Scale 1-3), fever or headache Digoxin (Digoxin 0.125 Mg Tablet) 0.125 mg PO Q2D@0900 [facility]; Protocol Finasteride (Finasteride 5 Mg Tablet) 5 mg PO BEDTIME [facility] Last Admin: 07/26/24 19:59 Dose: 5 mg Documented By: MISSAEL Fluticasone Propionate (Fluticasone Propionate Nasal 16 Gm [place]) 1 spray NOSTRIL-B BEDTIME [facility] Last Admin: 07/26/24 20:10 Dose: Not Given Documented By: MISSAEL Non-Admin Reason: Patient Refused Hydromorphone HCl (Hydromorphone Hcl 0.5 Mg/0.5 Ml Syringe) 0.5 mg IVPUSH Q4H PRN; Protocol PRN Reason: Pain, Severe (Pain Scale 7-10) Piperacillin Sod/Tazobactam (Sod 3.375 gm/ Sodium Chloride) 50 mls @ 100 mls/hr IV Q8H [facility] Last Infusion: 07/27/24 10:58 Dose: Infused Documented By: TRISH Lactated Ringer's (Lr) 1,000 mls @ 80 mls/hr IVCONT .[id number] [facility] Last Admin: 07/27/24 07:46 Dose: 80 mls/hr Documented By: TRISH Metoprolol Succinate (Metoprolol Succinate Er 100 Mg Tab.Er.24h) 100 mg PO DAILY [facility]; Protocol Last Admin: 07/27/24 07:48 Dose: 100 mg Documented By: TRISH Multivitamins/Vitamin C (Multivitamin Tablet) 1 tab PO DAILY [facility] Last Admin: 07/27/24 07:48 Dose: 1 tab Documented By: TRISH Ondansetron HCl (Ondansetron Hcl 4 Mg/2 Ml Vial) 4 mg IVPUSH Q8H PRN PRN Reason: Nausea and Vomiting Oxycodone HCl (Oxycodone Hcl Immed Release 5 Mg Tablet) 5 mg PO Q6H PRN PRN Reason: Pain, Moderate(Pain Scale 4-6) Last Admin: 07/27/24 12:54 Dose: 5 mg Documented By: TRISH Pantoprazole Sodium (Pantoprazole Sodium 40 Mg/10 Ml Vial) 40 mg IVPUSH DAILY [facility] Last Admin: 07/27/24 07:48 Dose: 40 mg Documented By: TRISH Prednisone (Prednisone 5 Mg Tablet) 5 mg PO BEDTIME [facility] Last Admin: 07/26/24 19:59 Dose: 5 mg Documented By: MISSAEL Sodium Chloride (0.9 % Sodium Chloride Flush 3 Ml Syringe) 3 ml IVFLUSH QSHIFT [facility] Last Admin: 07/27/24 07:48 Dose: Not Given Documented By: TRISH Non-Admin Reason: IV Running Tamsulosin HCl (Tamsulosin Hcl 0.4 Mg Capsule) 0.4 mg PO BID [facility] Last Admin: 07/27/24 07:48 Dose: 0.4 mg Documented By: TRISH Labs 07/27/24 05:33 07/27/24 05:33 Labs: Laboratory Results - last 24 hr 07/27/24 05:33 MCV 100.0 H MCH 33.3 H MCHC 33.3 RDW 13.3 Plt Count 202 MPV 9.4 Immature Gran % (Auto) 0.9 H Neut % (Auto) 85.9 H Lymph % (Auto) 3.3 L [place] % (Auto) 8.7 Eos % (Auto) 1.0 Baso % (Auto) 0.2 Lymph # (Auto) 0.6 L [place] # (Auto) 1.5 H Eos # (Auto) 0.2 Baso # (Auto) 0.0 Abs Immat Gran (auto) 0.16 H Absolute Neuts (auto) 15.1 H Absolute Nucleated RBC 0.000 Nucleated RBC % (auto) 0.0 Smear Tech's Comments VERIFIED Anion Gap 12 Estim Creat Clear Calc 57.0 Estimated GFR > 60 Random Glucose 116 H Calcium 9.1 D Total Bilirubin 2.1 H Direct Bilirubin 0.8 H AST 40 H ALT 20 Alkaline Phosphatase 64 Total Protein 6.4 L Albumin 3.3 L Microbiology Microbiology Results: Microbiology 07/27/24 13:30 Gram Stain - Final Gallbladder Assessment and Plan (1) Acute cholecystitis: Status: Acute Plan Mihir Pitts is a 89 y/o man admitted with: Right upper quadrant pain, likely secondary to acute cholecystitis. Persistent abdominal pain Abdominal ultrasound showed Cholelithiasis with thickened gallbladder wall, 3.5 cm mass or irregular shaped polyp along the anterior wall of the gallbladder and mildly dilated common bile duct. No fevers, WBC and LFTs trending up, Eliquis on hold Continue IV fluids, NPO, IV analgesics Seen by General surgery they recommended cholecystostomy tube placement by IR Patient underwent cholecystostomy tube placement 20 cc bile sent for Gram stain and culture Follow cultures , liver enzymes and CBC continue current treatment Chronic persistent atrial fibrillation Continue digoxin and metoprolol. Resume Eliquis at a.m. BPH. Continue tamsulosin and finasteride. Acute hypoxic respiratory failure likely due to atelectasis as seen on admission chest x-ray add incentive spirometry O2 support DVT prophylaxis: SCDs, Eliquis on hold Code status: Full Patient will need continued inpatient hospitalization for treatment of acute cholecystitis status post cholecystostomy tube placement, on IV antibiotics, and IV analgesics, requires course clinical follow-up that can not be provided in less acute setting. Quality Stroke Does the patient have a stroke diagnosis?: No VTE Prior VTE?: No VTE Risk Level:: Medical - moderate - high VTE Device Contraindication: N/A - Device Ordered VTE Drug Contraindication: Treatment Not Indicated
[2024-07-27] MEDS: HYDROmorphone HCl 0.5 MG/0.5 ML SYRINGE IVPUSH (15:56)
[2024-07-27] MEDS: Metoprolol Succinate ER 50 MG TAB.ER.24H PO (16:25)
[2024-07-27] MEDS: Acetaminophen 325 MG TABLET 975 MG PO (16:26)
--- NOTE | 2024-07-27 18:26 | PC.NURSE ---
1527 Pt restless, c/o 12/10 pain to right abdomen. Pulling bruno off,tremulous. HR 120 apically, BP 134/77 RR 24. O2 sat 85-86% on 2L NC but pt not taking deep breaths secondary to pain. O2 increased to 4L NC and sats improved to 91% after encouraging deep breaths. Dr Cartwright notified of above as pt not due for pain medication at this time. 1555 MD ordered Dilaudid and given to pt. along with additional dose of po metoprolol 1620 Pt temp 101.3 orally. Tylenol given and Dr Cartwright aware. 1720 Temp improved to 97.3 orally and pt resting comfortably at this time 1800 Daughter at bedside and updated on pt status
--- NOTE | 2024-07-27 19:06 | PC.NURSE ---
Pt continues to rest comfortably. CODY to right abdomen emptied for 140ml green/brown liquid. Teaching done with daughter per her request for possiblity of pt needing to be discharged with drain.
[2024-07-27] MEDS: predniSONE 5 MG TABLET PO (20:24)
[2024-07-27] MEDS: Finasteride 5 MG TABLET PO (20:24)
[2024-07-28] MEDS: HYDROmorphone HCl 0.5 MG/0.5 ML SYRINGE IVPUSH (03:03)
[2024-07-28] MEDS: Piperacillin Sodium/Tazobactam 3.375 GM in 0.9 % Sodium Chloride 50 ML IV ×3 (03:05→18:00)
[2024-07-28] MEDS: Lactated Ringers 1,000 ML 80 ML IVCONT (03:08)
[2024-07-28 03:35] VITALS: BP 127/64; PULSE 95; RESP 18; TEMP 36.3; O2SAT 96
[2024-07-28 06:42] LABS: Hematocrit 38.5 % (42.0-52.0); Mean Corpuscular HGB Conc 33.8 g/dl (31.0-36.0); Mean Corpuscular Volume 100.8 fL (80.0-98.0); Mean Platelet Volume 9.7 fL (9.4-12.4); Platelet Count 193 X10*3/uL (160-400); Red Blood Count 3.82 X10*6/uL (4.60-5.80); Red Cell Distribution Width 13.5 % (11.0-16.0); White Blood Count 11.1 X10*3/uL (4.8-10.8)
[2024-07-28 06:57] LABS: Alanine Aminotransferase 20 U/L (0-40); Albumin Level 3.2 g/dL (3.5-5.0); Alkaline Phosphatase 67 U/L (39-117); Anion Gap 13 (12-20); Aspartate Amino Transferase 46 U/L (5-37); Bilirubin Direct 0.7 mg/dL (0.0-0.5); Bilirubin Total 1.7 mg/dL (0.0-1.0); Blood Urea Nitrogen 38 mg/dL (9-16); Calcium 9.3 mg/dL (8.4-10.2); Carbon Dioxide 23 mmol/L (22-29); Chloride 106 mmol/L (96-108); Creatinine Clr Calc Pharmacy 61.9; Estimated Glomerular Filt Rate > 60; Glucose Random 110 mg/dL (60-115); Potassium 4.2 mmol/L (3.3-5.1); Sodium 138 mmol/L (135-145); Total Protein 6.6 g/dL (6.5-8.0)
[2024-07-28 07:12] VITALS: BP 140/72; PULSE 87; RESP 18; TEMP 36.3; O2SAT 96
[2024-07-28] MEDS: Tamsulosin HCL 0.4 MG CAPSULE PO ×2 (07:54→19:07)
[2024-07-28] MEDS: Digoxin 0.125 MG TABLET PO (07:54)
[2024-07-28] MEDS: Metoprolol Succinate ER 50 MG TAB.ER.24H 150 MG PO (07:55)
[2024-07-28] MEDS: Pantoprazole Sodium 40 MG/10 ML VIAL IVPUSH (07:56)
[2024-07-28] MEDS: Multivitamin TABLET 1 TAB PO (07:56)
--- NOTE | 2024-07-28 10:05 | PM.PNGS ---
Subjective Subjective Date of Service: 07/28/24 Interval history: Reports continued RUQ pain, unchanged. Not much of an appetite, tolerated a small amount of full liquids yesterday. Physical Exam Vital Signs: Vital Signs: Last Vital Signs Temp 97.3 F 07/28/24 07:12 Pulse 87 07/28/24 07:12 Resp 18 07/28/24 07:12 BP 140/72 H 07/28/24 07:12 Pulse Ox 96 07/28/24 07:12 O2 Del Method Nasal Cannula 07/28/24 07:12 O2 Flow Rate 4 07/28/24 07:12 BMI result Body Mass Index 23.7 Const: General: comfortable, no acute distress and alert Resp: Effort & Inspection: able to speak in complete sentences, no respiratory distress and not tachypneic GI: Other: cholecystostomy tube in place with bilious drainage in bulb Inspection: No distended Palpation (GI): Soft to palpation, Tenderness to palpation present (GI) (RUQ tender) with no rebound tenderness and no guarding Skin: General skin exam: no rashes or lesions noted and no jaundice Objective Data Active Medications Acetaminophen (Acetaminophen 325 Mg Tablet) 975 mg PO Q6H PRN PRN Reason: Pain, Mild (Pain Scale 1-3), fever or headache Last Admin: 07/27/24 16:26 Dose: 975 mg Documented By: JUAN ALBERTO Digoxin (Digoxin 0.125 Mg Tablet) 0.125 mg PO Q2D@0900 [facility]; Protocol Last Admin: 07/28/24 07:54 Dose: 0.125 mg Documented By: KRISTOFER Finasteride (Finasteride 5 Mg Tablet) 5 mg PO BEDTIME [facility]PL[facility] Last Admin: 07/27/24 20:24 Dose: 5 mg Documented By: ALON Fluticasone Propionate (Fluticasone Propionate Nasal 16 Gm [place]) 1 spray NOSTRIL-B BEDTIME [facility] Last Admin: 07/27/24 21:23 Dose: Not Given Documented By: ALON Non-Admin Reason: Patient Refused Hydromorphone HCl (Hydromorphone Hcl 0.5 Mg/0.5 Ml Syringe) 0.5 mg IVPUSH Q4H PRN; Protocol PRN Reason: Pain, Severe (Pain Scale 7-10) Last Admin: 07/28/24 03:03 Dose: 0.5 mg Documented By: ALON Piperacillin Sod/Tazobactam (Sod 3.375 gm/ Sodium Chloride) 50 mls @ 100 mls/hr IV Q8H [facility]PLACED BY [facility] Last Infusion: 07/28/24 03:41 Dose: Infused Documented By: ALON Lactated Ringer's (Lr) 1,000 mls @ 80 mls/hr IVCONT .[id number] [facility]PL[facility] Last Admin: 07/28/24 03:08 Dose: 80 mls/hr Documented By: ALON Metoprolol Succinate (Metoprolol Succinate Er 50 Mg Tab.Er.24h) 150 mg PO DAILY [facility]; Protocol Last Admin: 07/28/24 07:55 Dose: 150 mg Documented By: KRISTOFER Multivitamins/Vitamin C (Multivitamin Tablet) 1 tab PO DAILY [facility] Last Admin: 07/28/24 07:56 Dose: 1 tab Documented By: KRISTOFER Ondansetron HCl (Ondansetron Hcl 4 Mg/2 Ml Vial) 4 mg IVPUSH Q8H PRN PRN Reason: Nausea and Vomiting Oxycodone HCl (Oxycodone Hcl Immed Release 5 Mg Tablet) 5 mg PO Q6H PRN PRN Reason: Pain, Moderate(Pain Scale 4-6) Last Admin: 07/27/24 12:54 Dose: 5 mg Documented By: TRISH Pantoprazole Sodium (Pantoprazole Sodium 40 Mg/10 Ml Vial) 40 mg IVPUSH DAILY [facility]PL[facility] Last Admin: 07/28/24 07:56 Dose: 40 mg Documented By: KRISTOFER Prednisone (Prednisone 5 Mg Tablet) 5 mg PO BEDTIME REPL[facility] BY [facility] Last Admin: 07/27/24 20:24 Dose: 5 mg Documented By: ALON Sodium Chloride (0.9 % Sodium Chloride Flush 3 Ml Syringe) 3 ml IVFLUSH QSHIFT REPLACED BY [facility] Last Admin: 07/28/24 06:58 Dose: Not Given Documented By: KRISTOFER Non-Admin Reason: IV Running Tamsulosin HCl (Tamsulosin Hcl 0.4 Mg Capsule) 0.4 mg PO BID [facility]PL[facility]ED [facility] Last Admin: 07/28/24 07:54 Dose: 0.4 mg Documented By: KRISTOFER Labs 07/28/24 05:42 07/28/24 05:42 Labs: Laboratory Results - last 24 hr 07/28/24 05:42 MCV 100.8 H MCH 34.0 H MCHC 33.8 RDW 13.5 Plt Count 193 MPV 9.7 Absolute Nucleated RBC 0.000 Nucleated RBC % (auto) 0.0 Anion Gap 13 Estim Creat Clear Calc 61.9 Estimated GFR > 60 Random Glucose 110 Calcium 9.3 Total Bilirubin 1.7 H Direct Bilirubin 0.7 H AST 46 H ALT 20 Alkaline Phosphatase 67 Total Protein 6.6 Albumin 3.2 L Microbiology Microbiology Results: Microbiology 07/27/24 13:30 Gram Stain - Final Gallbladder Routine Culture - Preliminary Gram negative desire Procedures Date of Service Date of Service: 07/28/24 Progress Note: A&P Assessment and plan (1) Acute cholecystitis: Status: Acute (2) Atrial fibrillation: Status: Acute Plan S/p cholecystostomy tube placement yesterday for acute cholecystitis. WBC and LFTs improved this morning but reports continued RUQ pain. ?Secondary to drain. Can advance diet, cont IV abx. Cont to monitor. Time Spent With Patient Time: Total time managing care of this patient today ____ minutes. Quality Stroke Does the patient have a stroke diagnosis?: No VTE Prior VTE?: No VTE Risk Level:: Medical - moderate - high VTE Device Contraindication: N/A - Device Ordered VTE Drug Contraindication: Treatment Not Indicated
--- NOTE | 2024-07-28 14:46 | HO.PM.IMPN ---
Subjective Subjective Date of Service: 07/28/24 Interval History: Complaining of abdominal pain, decreased appetite, denies fever, no chills, is pleasantly confused , no acute events overnight. Review of Systems Pleasantly confused unable to take detailed review of system. Physical Exam Vital Signs: Vital Signs: Last Vital Signs Temp 97.3 F 07/28/24 07:12 Pulse 87 07/28/24 07:12 Resp 18 07/28/24 07:12 BP 140/72 H 07/28/24 07:12 Pulse Ox 96 07/28/24 07:12 O2 Del Method Nasal Cannula 07/28/24 07:12 O2 Flow Rate 4 07/28/24 07:12 BMI result Body Mass Index 23.7 Const: Other: General awake alert, in no acute distress. Neck is supple no JVD. CVS regular rate rhythm, Respiratory lungs clear to auscultation, no respiratory distress, no wheeze, no rhonchi. Gastrointestinal right upper quadrant abdominal tenderness, bowel sounds audible, no guarding , no rigidity, CODY drain with bilious fluid. Extremities no edema. Neuro moving all 4 extremity, speech clear. Skin no rash Psych pleasantly confused Objective Data Active Medications Acetaminophen (Acetaminophen 325 Mg Tablet) 975 mg PO Q6H PRN PRN Reason: Pain, Mild (Pain Scale 1-3), fever or headache Last Admin: 07/27/24 16:26 Dose: 975 mg Documented By: JUAN ALBERTO Digoxin (Digoxin 0.125 Mg Tablet) 0.125 mg PO Q2D@0900 [facility]; Protocol Last Admin: 07/28/24 07:54 Dose: 0.125 mg Documented By: KRISTOFER Finasteride (Finasteride 5 Mg Tablet) 5 mg PO BEDTIME [facility] Last Admin: 07/27/24 20:24 Dose: 5 mg Documented By: JORYRISIona Fluticasone Propionate (Fluticasone Propionate Nasal 16 Gm [place]) 1 spray NOSTRIL-B BEDTIME [facility] Last Admin: 07/27/24 21:23 Dose: Not Given Documented By: ALON Non-Admin Reason: Patient Refused Hydromorphone HCl (Hydromorphone Hcl 0.5 Mg/0.5 Ml Syringe) 0.5 mg IVPUSH Q4H PRN; Protocol PRN Reason: Pain, Severe (Pain Scale 7-10) Last Admin: 07/28/24 03:03 Dose: 0.5 mg Documented By: ALON Piperacillin Sod/Tazobactam (Sod 3.375 gm/ Sodium Chloride) 50 mls @ 100 mls/hr IV Q8H [facility] Last Infusion: 07/28/24 12:10 Dose: Infused Documented By: KRISTOFER Lactated Ringer's (Lr) 1,000 mls @ 80 mls/hr IVCONT .[id number] [facility] Last Infusion: 07/28/24 13:00 Dose: 0 mls/hr Documented By: KRISTOFER Metoprolol Succinate (Metoprolol Succinate Er 50 Mg Tab.Er.24h) 150 mg PO DAILY [facility]; Protocol Last Admin: 07/28/24 07:55 Dose: 150 mg Documented By: KRISTOFER Multivitamins/Vitamin C (Multivitamin Tablet) 1 tab PO DAILY [facility] Last Admin: 07/28/24 07:56 Dose: 1 tab Documented By: KRISTOFER Ondansetron HCl (Ondansetron Hcl 4 Mg/2 Ml Vial) 4 mg IVPUSH Q8H PRN PRN Reason: Nausea and Vomiting Oxycodone HCl (Oxycodone Hcl Immed Release 5 Mg Tablet) 5 mg PO Q6H PRN PRN Reason: Pain, Moderate(Pain Scale 4-6) Last Admin: 07/27/24 12:54 Dose: 5 mg Documented By: TRISH Pantoprazole Sodium (Pantoprazole Sodium 40 Mg/10 Ml Vial) 40 mg IVPUSH DAILY [facility] Last Admin: 07/28/24 07:56 Dose: 40 mg Documented By: KRISTOFER Prednisone (Prednisone 5 Mg Tablet) 5 mg PO BEDTIME [facility] Last Admin: 07/27/24 20:24 Dose: 5 mg Documented By: ALON Sodium Chloride (0.9 % Sodium Chloride Flush 3 Ml Syringe) 3 ml IVFLUSH QSHIFT [facility] Last Admin: 07/28/24 06:58 Dose: Not Given Documented By: KRISTOFER Non-Admin Reason: IV Running Tamsulosin HCl (Tamsulosin Hcl 0.4 Mg Capsule) 0.4 mg PO BID [facility] Last Admin: 07/28/24 07:54 Dose: 0.4 mg Documented By: KRISTOFER Labs 07/28/24 05:42 07/28/24 05:42 Labs: Laboratory Results - last 24 hr 07/28/24 05:42 MCV 100.8 H MCH 34.0 H MCHC 33.8 RDW 13.5 Plt Count 193 MPV 9.7 Absolute Nucleated RBC 0.000 Nucleated RBC % (auto) 0.0 Anion Gap 13 Estim Creat Clear Calc 61.9 Estimated GFR > 60 Random Glucose 110 Calcium 9.3 Total Bilirubin 1.7 H Direct Bilirubin 0.7 H AST 46 H ALT 20 Alkaline Phosphatase 67 Total Protein 6.6 Albumin 3.2 L Microbiology Microbiology Results: Microbiology 07/27/24 13:30 Gram Stain - Final Gallbladder Routine Culture - Preliminary Gram negative desire Assessment and Plan (1) Acute cholecystitis: Status: Acute (2) Atrial fibrillation: Status: Acute Plan Mihir Pitts is a 89 y/o man admitted with: Right upper quadrant pain,secondary to acute cholecystitis. Persistent abdominal pain Abdominal ultrasound showed Cholelithiasis with thickened gallbladder wall, 3.5 cm mass or irregular shaped polyp along the anterior wall of the gallbladder and mildly dilated common bile duct. No fevers, WBC and LFTs trending down, underwent cholecystostomy tube placement , Gram stain and culture grew Gram-negative desire follow final sensitivities Continue IV Zosyn started on 07/26 Will advance to regular diet, continue IV fluid due to decreased by mouth intake continue IV/p.o. analgesics Continue to hold Eliquis Follow cultures , liver enzymes and CBC continue current treatment Chronic persistent atrial fibrillation Continue digoxin and metoprolol. Resume Eliquis at a.m. BPH. Continue tamsulosin and finasteride. Acute hypoxic respiratory failure likely due to atelectasis as seen on admission chest x-ray add incentive spirometry , O2 support, wean oxygen as tolerated Alzheimer's dementia pleasantly confused case discussed with daughter and , he has episodes of worsening confusion, no behavioral issues will follow. DVT prophylaxis: SCDs, Eliquis on hold Code status: Full Patient will need continued inpatient hospitalization for treatment of acute cholecystitis status post cholecystostomy tube placement, on IV antibiotics, and IV analgesics, requires course clinical follow-up that can not be provided in less acute setting. Quality Stroke Does the patient have a stroke diagnosis?: No VTE Prior VTE?: No VTE Risk Level:: Medical - moderate - high VTE Device Contraindication: N/A - Device Ordered VTE Drug Contraindication: Treatment Not Indicated
[2024-07-28 15:25] VITALS: BP 134/77; PULSE 94; RESP 20; TEMP 36.2; O2SAT 92
[2024-07-28 19:06] VITALS: BP 129/70; PULSE 93; RESP 20; TEMP 36.2; O2SAT 92
[2024-07-28] MEDS: Acetaminophen 325 MG TABLET 975 MG PO (19:06)
[2024-07-28] MEDS: predniSONE 5 MG TABLET PO (19:07)
[2024-07-28] MEDS: 0.9 % Sodium Chloride Flush 3 ML SYRINGE IVFLUSH (19:07)
[2024-07-28] MEDS: Finasteride 5 MG TABLET PO (19:07)
[2024-07-28] MEDS: Melatonin 3 MG TABLET 6 MG PO (20:38)
[2024-07-29] MEDS: HYDROmorphone HCl 0.5 MG/0.5 ML SYRINGE IVPUSH ×2 (01:02→05:32)
[2024-07-29] MEDS: Haloperidol Lactate 5 MG/ML VIAL IM (02:07)
[2024-07-29] MEDS: Piperacillin Sodium/Tazobactam 3.375 GM in 0.9 % Sodium Chloride 50 ML IV ×2 (02:46→10:38)
[2024-07-29 03:37] VITALS: BP 113/55; PULSE 83; RESP 16; TEMP 36.2; O2SAT 93
--- NOTE | 2024-07-29 04:23 | PC.NURSE ---
Pt unable to follow directions, pulled out an IV, trying to pull out CODY drain, trying to get out of bed after we walked him to the bathroom several times. Pt then got very agitated, yelling at staff, trying to hit and kick staff. Maurepas text to Dr. Pierre, she oredered 5 mg of IM haldol. Haldol given at 0207 with good effect. Pt resting in bed now, will continue to monitor.
[2024-07-29 06:11] LABS: Hematocrit 37.6 % (42.0-52.0); Hemoglobin 13.1 g/dl (14.0-18.0); Mean Corpuscular HGB Conc 34.8 g/dl (31.0-36.0); Mean Corpuscular Hemoglobin 33.8 pg (27.0-33.0); Mean Corpuscular Volume 96.9 fL (80.0-98.0); Mean Platelet Volume 9.4 fL (9.4-12.4); Platelet Count 211 X10*3/uL (160-400); Red Blood Count 3.88 X10*6/uL (4.60-5.80); Red Cell Distribution Width 13.3 % (11.0-16.0)
[2024-07-29 06:28] LABS: Alanine Aminotransferase 22 U/L (0-40); Albumin Level 3.3 g/dL (3.5-5.0); Alkaline Phosphatase 65 U/L (39-117); Anion Gap 14 (12-20); Aspartate Amino Transferase 61 U/L (5-37); Bilirubin Direct 0.6 mg/dL (0.0-0.5); Bilirubin Total 1.7 mg/dL (0.0-1.0); Blood Urea Nitrogen 39 mg/dL (9-16); Carbon Dioxide 20 mmol/L (22-29); Chloride 109 mmol/L (96-108); Creatinine Clr Calc Pharmacy 68.5; Estimated Glomerular Filt Rate > 60; Glucose Random 104 mg/dL (60-115); Potassium 3.8 mmol/L (3.3-5.1); Sodium 139 mmol/L (135-145); Total Protein 6.7 g/dL (6.5-8.0)
[2024-07-29] MEDS: Metoprolol Succinate ER 50 MG TAB.ER.24H 150 MG PO (07:40)
[2024-07-29] MEDS: Tamsulosin HCL 0.4 MG CAPSULE PO ×2 (07:40→19:21)
[2024-07-29] MEDS: Multivitamin TABLET 1 TAB PO (07:40)
[2024-07-29] MEDS: 0.9 % Sodium Chloride Flush 3 ML SYRINGE IVFLUSH ×3 (07:40→19:21)
[2024-07-29 07:49] VITALS: BP 138/63; PULSE 82; RESP 18; TEMP 36.2; O2SAT 96
--- NOTE | 2024-07-29 08:25 | P.PNGS_ITS ---
Subjective Subjective Date of Service: 07/29/24 <Eloina Ruano PA-C - Last Filed: 07/29/24 08:58> 07/29/24 <Fawad Barlow MD - Last Filed: 07/29/24 09:55> Interval history: Denies pain this morning. Thinks he ate solid food yesterday. RN reported drain dressing was off this AM and drain appeared slightly out further. <Eloina Ruano PA-C - Last Filed: 07/29/24 08:58> Physical Exam 2 Vital Signs: Vital Signs: Last Vital Signs Temp 97.2 F 07/29/24 07:49 Pulse 82 07/29/24 07:49 Resp 18 07/29/24 07:49 BP 138/63 07/29/24 07:49 Pulse Ox 96 07/29/24 07:49 O2 Del Method Room Air 07/29/24 07:49 O2 Flow Rate 4 07/28/24 07:12 BMI result Body Mass Index 23.7 <Eloina Ruano PA-C - Last Filed: 07/29/24 08:58> Const: General: comfortable, no acute distress and alert <Eloina Ruano PA-C - Last Filed: 07/29/24 08:58> Orientation/consciousness: patient oriented x3 <YULIANA Blake Last Filed: 07/29/24 08:58> Resp: Effort & Inspection: normal respiratory effort <Eloina Ruano PA-C - Last Filed: 07/29/24 08:58> GI: Other: cholecystostomy tube intact bilious drainage in bulb <Eloina Ruano PA-C - Last Filed: 07/29/24 08:58> Inspection: No distended <YULIANA Blake Last Filed: 07/29/24 08:58> Palpation (GI): Soft to palpation, Tenderness to palpation present (GI) (RUQ tender but improved ) and no guarding <YULIANA Blake Last Filed: 07/29/24 08:58> Skin: General skin exam: no rashes or lesions noted and no jaundice < YULIANA Blake Last Filed: 07/29/24 08:58> Neuro: General: patient oriented x3 <Eloina Ruano PA-C - Last Filed: 07/29/24 08:58> Objective Data Active Medications Acetaminophen (Acetaminophen 325 Mg Tablet) 975 mg PO Q6H PRN PRN Reason: Pain, Mild (Pain Scale 1-3), fever or headache Last Admin: 07/28/24 19:06 Dose: 975 mg Documented By: CARA Digoxin (Digoxin 0.125 Mg Tablet) 0.125 mg PO Q2D@0900 [facility]; Protocol Last Admin: 07/28/24 07:54 Dose: 0.125 mg Documented By: KRISTOFER Finasteride (Finasteride 5 Mg Tablet) 5 mg PO BEDTIME [facility] Last Admin: 07/28/24 19:07 Dose: 5 mg Documented By: CARA Fluticasone Propionate (Fluticasone Propionate Nasal 16 Gm [place]) 1 spray NOSTRIL-B BEDTIME [facility] Last Admin: 07/28/24 19:07 Dose: Not Given Documented By: CARA Non-Admin Reason: Patient Refused Hydromorphone HCl (Hydromorphone Hcl 0.5 Mg/0.5 Ml Syringe) 0.5 mg IVPUSH Q4H PRN; Protocol PRN Reason: Pain, Severe (Pain Scale 7-10) Last Admin: 07/29/24 05:32 Dose: 0.5 mg Documented By: CARA Piperacillin Sod/Tazobactam (Sod 3.375 gm/ Sodium Chloride) 50 mls @ 100 mls/hr IV Q8H [facility] Last Infusion: 07/29/24 03:20 Dose: Infused Documented By: CARA Melatonin (Melatonin 3 Mg Tablet) 6 mg PO BEDTIME [facility] Last Admin: 07/28/24 20:38 Dose: 6 mg Documented By: CARA Metoprolol Succinate (Metoprolol Succinate Er 50 Mg Tab.Er.24h) 150 mg PO DAILY [facility]; Protocol Last Admin: 07/29/24 07:40 Dose: 150 mg Documented By: KAYLEE Multivitamins/Vitamin C (Multivitamin Tablet) 1 tab PO DAILY [facility] Last Admin: 07/29/24 07:40 Dose: 1 tab Documented By: KAYLEE Omeprazole (Omeprazole 20 Mg Capsule.Dr) 20 mg PO DAILY@0630 [facility] Ondansetron HCl (Ondansetron Hcl 4 Mg/2 Ml Vial) 4 mg IVPUSH Q8H PRN PRN Reason: Nausea and Vomiting Oxycodone HCl (Oxycodone Hcl Immed Release 5 Mg Tablet) 5 mg PO Q6H PRN PRN Reason: Pain, Moderate(Pain Scale 4-6) Last Admin: 07/27/24 12:54 Dose: 5 mg Documented By: TRISH Prednisone (Prednisone 5 Mg Tablet) 5 mg PO BEDTIME [facility] Last Admin: 07/28/24 19:07 Dose: 5 mg Documented By: CARA Sodium Chloride (0.9 % Sodium Chloride Flush 3 Ml Syringe) 3 ml IVFLUSH QSHIFT [facility] Last Admin: 07/29/24 07:40 Dose: 3 ml Documented By: KAYLEE Tamsulosin HCl (Tamsulosin Hcl 0.4 Mg Capsule) 0.4 mg PO BID [facility] Last Admin: 07/29/24 07:40 Dose: 0.4 mg Documented By: KAYLEE <Eloina Ruano PA-C - Last Filed: 07/29/24 08:58> Labs CBC & Chem 7: 07/29/24 05:42 07/29/24 05:42 <Eloina Ruano PA-C - Last Filed: 07/29/24 08:58> Labs: Laboratory Results - last 24 hr 07/29/24 05:42 MCV 96.9 MCH 33.8 H MCHC 34.8 RDW 13.3 Plt Count 211 MPV 9.4 Absolute Nucleated RBC 0.000 Nucleated RBC % (auto) 0.0 Anion Gap 14 Estim Creat Clear Calc 68.5 Estimated GFR > 60 Random Glucose 104 Calcium 9.0 Total Bilirubin 1.7 H Direct Bilirubin 0.6 H AST 61 H ALT 22 Alkaline Phosphatase 65 Total Protein 6.7 Albumin 3.3 L <YULIANA Blake Last Filed: 07/29/24 08:58> Microbiology Microbiology Results: Microbiology 07/27/24 13:30 Gram Stain - Final Gallbladder Routine Culture - Preliminary Escherichia coli <YULIANA Blake Last Filed: 07/29/24 08:58> Procedures Date of Service Date of Service: 07/29/24 <Eloina Ruano PA-C - Last Filed: 07/29/24 08:58> 07/29/24 <Fawad Barlow MD - Last Filed: 07/29/24 09:55> Progress Note: A&P Assessment and plan (1) Acute cholecystitis: Status: Acute <Eloina Ruano PA-C - Last Filed: 07/29/24 08:58> Assessment and Plan: Looks well and appears comfortable Abdomen soft and benign WBC normal Tube drain in place Continue current care Possible home tomorrow Doing well overall Seen and examined independently <Fawad Barlow MD - Last Filed: 07/29/24 09:55> Assessment and Plan: S/p IR cholecystostomy tube drainage. Drain still functioning with bilious drainage in bulb, will switch to drainage bag. Slowly improving, WBC now normal and RUQ less tender on exam this morning. Can resume eliquis. Would benefit from another day of IV abx. Will need VNA services for home drain care. <Eloina Ruano PA-C - Last Filed: 07/29/24 08:58> Time Spent With Patient Time: Total time managing care of this patient today ____ minutes. <Eloina Ruano PA-C - Last Filed: 07/29/24 08:58> Quality Stroke Does the patient have a stroke diagnosis?: No <Eloina Ruano PA-C - Last Filed: 07/29/24 08:58> VTE Prior VTE?: No <Eloina Ruano PA-C - Last Filed: 07/29/24 08:58> VTE Risk Level:: Medical - moderate - high <Eloina Ruano PA-C - Last Filed: 07/29/24 08:58> VTE Device Contraindication: N/A - Device Ordered <Eloina Ruano PA-C - Last Filed: 07/29/24 08:58> VTE Drug Contraindication: Treatment Not Indicated <YULIANA Blake Last Filed: 07/29/24 08:58>
--- NOTE | 2024-07-29 08:31 | PC.NURSE ---
Patoemt had CODY drain in bruno pocket and was partially displaced with ambulation and changing. Dressing was removed and redressed without and signs or symtoms of displacement. ABD binder applied for further protection
--- NOTE | 2024-07-29 11:27 | MHC.CM.PN ---
Addendum entered by Rose Marie Zhao RN 07/29/24 11:48: CM met w/ /caregiver at bedside. is requesting PT eval. Reporting multiple falls at home. Goal is STR @ [facility]. If STR not recommended, would like [facility] services and/or [facility]NA. MD to order PT eval, will await recommendation. [facility] referral [facility] via [facility]. CM will continue to follow. Original Note: Per MD rounds patient is not medically cleared for dc. DC plan remains home self care. CM will continue to follow.
--- NOTE | 2024-07-29 11:42 | HO.PM.IMPN ---
Subjective Subjective Date of Service: 07/29/24 Interval History: Being followed for acute cholecystitis status post cholecystostomy tube placement with persistent bilious drainage, LFTs trending down. Patient is sitting comfortably on recliner, complaining of abdominal pain with movement, denies nausea , vomiting, no fevers, no chills, decreased appetite. Review of Systems All other symptoms reviewed and are negative Physical Exam Vital Signs: Vital Signs: Last Vital Signs Temp 97.2 F 07/29/24 07:49 Pulse 82 07/29/24 07:49 Resp 18 07/29/24 07:49 BP 138/63 07/29/24 07:49 Pulse Ox 96 07/29/24 07:49 O2 Del Method Room Air 07/29/24 07:49 O2 Flow Rate 4 07/28/24 07:12 BMI result Body Mass Index 23.7 Const: Other: General awake alert, in no acute distress. Neck is supple no JVD. CVS regular rate rhythm, Respiratory lungs clear to auscultation, no respiratory distress, no wheeze, no rhonchi. Gastrointestinal right upper quadrant no tenderness, bowel sounds audible, no guarding , no rigidity, CODY drain with bilious fluid. Extremities no edema. Neuro moving all 4 extremity, speech clear. Skin no rash Psych less confused Objective Data Active Medications Acetaminophen (Acetaminophen 325 Mg Tablet) 975 mg PO Q6H PRN PRN Reason: Pain, Mild (Pain Scale 1-3), fever or headache Last Admin: 07/28/24 19:06 Dose: 975 mg Documented By: CARA Digoxin (Digoxin 0.125 Mg Tablet) 0.125 mg PO Q2D@0900 [facility]; Protocol Last Admin: 07/28/24 07:54 Dose: 0.125 mg Documented By: KRISTOFER Finasteride (Finasteride 5 Mg Tablet) 5 mg PO BEDTIME [facility] Last Admin: 07/28/24 19:07 Dose: 5 mg Documented By: CARA Fluticasone Propionate (Fluticasone Propionate Nasal 16 Gm [place]) 1 spray NOSTRIL-B BEDTIME [facility] Last Admin: 07/28/24 19:07 Dose: Not Given Documented By: CARA Non-Admin Reason: Patient Refused Hydromorphone HCl (Hydromorphone Hcl 0.5 Mg/0.5 Ml Syringe) 0.5 mg IVPUSH Q4H PRN; Protocol PRN Reason: Pain, Severe (Pain Scale 7-10) Last Admin: 07/29/24 05:32 Dose: 0.5 mg Documented By: CARA Piperacillin Sod/Tazobactam (Sod 3.375 gm/ Sodium Chloride) 50 mls @ 100 mls/hr IV Q8H [facility] Last Infusion: 07/29/24 11:40 Dose: Infused Documented By: KAYLEE Melatonin (Melatonin 3 Mg Tablet) 6 mg PO BEDTIME [facility] Last Admin: 07/28/24 20:38 Dose: 6 mg Documented By: CARA Metoprolol Succinate (Metoprolol Succinate Er 50 Mg Tab.Er.24h) 150 mg PO DAILY [facility]; Protocol Last Admin: 07/29/24 07:40 Dose: 150 mg Documented By: KAYLEE Multivitamins/Vitamin C (Multivitamin Tablet) 1 tab PO DAILY [facility] Last Admin: 07/29/24 07:40 Dose: 1 tab Documented By: KAYLEE Omeprazole (Omeprazole 20 Mg Capsule.Dr) 20 mg PO DAILY@0630 [facility] Ondansetron HCl (Ondansetron Hcl 4 Mg/2 Ml Vial) 4 mg IVPUSH Q8H PRN PRN Reason: Nausea and Vomiting Oxycodone HCl (Oxycodone Hcl Immed Release 5 Mg Tablet) 5 mg PO Q6H PRN PRN Reason: Pain, Moderate(Pain Scale 4-6) Last Admin: 07/27/24 12:54 Dose: 5 mg Documented By: TIRSH Prednisone (Prednisone 5 Mg Tablet) 5 mg PO BEDTIME [facility] Last Admin: 07/28/24 19:07 Dose: 5 mg Documented By: CARA Sodium Chloride (0.9 % Sodium Chloride Flush 3 Ml Syringe) 3 ml IVFLUSH QSHIFT [facility] Last Admin: 07/29/24 07:40 Dose: 3 ml Documented By: KAYLEE Tamsulosin HCl (Tamsulosin Hcl 0.4 Mg Capsule) 0.4 mg PO BID [facility] Last Admin: 07/29/24 07:40 Dose: 0.4 mg Documented By: KAYLEE Labs 07/29/24 05:42 07/29/24 05:42 Labs: Laboratory Results - last 24 hr 07/29/24 05:42 MCV 96.9 MCH 33.8 H MCHC 34.8 RDW 13.3 Plt Count 211 MPV 9.4 Absolute Nucleated RBC 0.000 Nucleated RBC % (auto) 0.0 Anion Gap 14 Estim Creat Clear Calc 68.5 Estimated GFR > 60 Random Glucose 104 Calcium 9.0 Total Bilirubin 1.7 H Direct Bilirubin 0.6 H AST 61 H ALT 22 Alkaline Phosphatase 65 Total Protein 6.7 Albumin 3.3 L Microbiology Microbiology Results: Microbiology 07/27/24 13:30 Gram Stain - Final Gallbladder Routine Culture - Preliminary Escherichia coli Assessment and Plan (1) Atrial fibrillation: Status: Acute (2) Acute cholecystitis: Status: Acute Plan Mihir Pitts is a 89 y/o man admitted with: Acute cholecystitis. No pain Abdominal ultrasound showed Cholelithiasis with thickened gallbladder wall, 3.5 cm mass or irregular shaped polyp along the anterior wall of the gallbladder and mildly dilated common bile duct. No fevers, WBC normalized, LFTs trending down, underwent cholecystostomy tube placement 07/27,, Gram stain and culture grew E coli intermediate susceptibility to ampicillin, will transition to ceftriaxone s/p IV Zosyn started on 07/26 to 07/29 regular diet, IV/p.o. analgesics Resume Eliquis General surgery recommend 1 more day of IV antibiotics, transitioned to by mouth abx at a.m. Chronic persistent atrial fibrillation Continue digoxin and metoprolol. Resume Eliquis BPH. Continue tamsulosin and finasteride. Acute hypoxic respiratory failure likely due to atelectasis as seen on admission chest x-ray , hypoxia resolved , encourage incentive spirometry Alzheimer's dementia pleasantly confused case discussed with daughter and , he has episodes of worsening confusion, no behavioral issues will follow. Obtain PT eval On chronic prednisone 5 mg daily Will continue DVT prophylaxis: SCDs, Eliquis on hold Code status: Full Patient will need continued inpatient hospitalization for treatment of acute cholecystitis status post cholecystostomy tube placement, on IV antibiotics, and IV analgesics, requires close clinical follow-up and safe disposition. Quality Stroke Does the patient have a stroke diagnosis?: No VTE Prior VTE?: No VTE Risk Level:: Medical - moderate - high VTE Device Contraindication: N/A - Device Ordered VTE Drug Contraindication: Treatment Not Indicated
[2024-07-29] MEDS: cefTRIAXone sodium 1 GM VIAL IVPUSH (13:04)
[2024-07-29 15:27] VITALS: BP 142/66; PULSE 82; RESP 20; TEMP 36.2; O2SAT 93
[2024-07-29 19:14] VITALS: BP 154/67; PULSE 95; RESP 20; TEMP 36.2; O2SAT 95
[2024-07-29] MEDS: Melatonin 3 MG TABLET 6 MG PO (19:20)
[2024-07-29] MEDS: Acetaminophen 325 MG TABLET 975 MG PO (19:20)
[2024-07-29] MEDS: Finasteride 5 MG TABLET PO (19:20)
[2024-07-29] MEDS: predniSONE 5 MG TABLET PO (19:21)
[2024-07-29] MEDS: Apixaban 5 MG TABLET PO (19:21)
[2024-07-30 03:29] VITALS: BP 146/63; PULSE 82; RESP 18; TEMP 36.1; O2SAT 94
[2024-07-30] MEDS: Omeprazole 20 MG CAPSULE.DR PO (06:26)
[2024-07-30 07:32] VITALS: BP 152/71; PULSE 84; RESP 18; TEMP 36.1; O2SAT 98
[2024-07-30] MEDS: Metoprolol Succinate ER 50 MG TAB.ER.24H 150 MG PO (07:38)
[2024-07-30] MEDS: Digoxin 0.125 MG TABLET PO (07:38)
[2024-07-30] MEDS: Multivitamin TABLET 1 TAB PO (07:38)
[2024-07-30] MEDS: Apixaban 5 MG TABLET PO (07:38)
[2024-07-30] MEDS: Tamsulosin HCL 0.4 MG CAPSULE PO (07:38)
[2024-07-30] MEDS: 0.9 % Sodium Chloride Flush 3 ML SYRINGE IVFLUSH (07:39)
[2024-07-30 07:55] LABS: Alanine Aminotransferase 27 U/L (0-40); Albumin Level 3.3 g/dL (3.5-5.0); Alkaline Phosphatase 76 U/L (39-117); Anion Gap 14 (12-20); Aspartate Amino Transferase 53 U/L (5-37); Bilirubin Direct 0.4 mg/dL (0.0-0.5); Blood Urea Nitrogen 35 mg/dL (9-16); Calcium 9.1 mg/dL (8.4-10.2); Carbon Dioxide 27 mmol/L (22-29); Chloride 106 mmol/L (96-108); Creatinine Clr Calc Pharmacy 77.6; Estimated Glomerular Filt Rate > 60; Glucose Random 106 mg/dL (60-115); Potassium 4.2 mmol/L (3.3-5.1); Sodium 143 mmol/L (135-145); Total Protein 6.8 g/dL (6.5-8.0)
--- NOTE | 2024-07-30 11:35 | MHC.CM.PN ---
Per MD rounds patient medically cleared for dc to [facility]. S transport scheduled for 2pm to [facility]. Patient, , , RN aware.
--- NOTE | 2024-07-30 11:47 | PM.DS ---
DS: Providers Provider Date of Service: 07/30/24 Date of admission: 07/26/24 03:26 Date of discharge: 07/30/24 Primary care physician: Michael Polanco MD Consults: 07/26/24 03:30 Consult to General Surgery Routine Consulting Provider: [facility] General Surgeons Reason for consultation: Acute cholelithiasis and cholecystitis Has provider been notified: No DS: Diagnosis Discharge Diagnosis (1) Acute cholecystitis: Status: Acute (2) Gallbladder mass: Status: Acute DS: Summary Hospital Course Hospital Course: From the history and physical by the admitting hospitalist, Raquel Dill MD, 07/26/24: Mihir Pitts is a delightful 89 years old man with past medical history significant for atrial fibrillation apparently on Eliquis presents to the emergency department complaining of right lower quadrant pain that started many years ago but seems like over the last several hours the patient has been getting worse. He described the pain as constant, without radiation and intensity 10/10. The pain increases with movement. He denied any associated symptoms such as nausea, vomiting or diarrhea. He did not report any fever, chills, headache, palpitations, pain with urination or hematuria. He did not report any acute cardiopulmonary symptoms. He denied alcohol abuse, tobacco smoking or illicit drug use. He is a former smoker. Patient did not recall the name of his medications. Medications despite history showed that patient Piela prescription of prednisone and amoxicillin. In the ED, he was found to have normal vital signs. Blood workup showed leukocytosis of 15.6. There is no lactic acidosis. Hemoglobin and platelets are normal. There are no electrolyte imbalances. BUN is 23 and creatinine 0.93. LFTs are normal except for elevated bilirubin --> 1.9. Urinalysis did not showed findings of urinary tract infection or hematuria. Abdomen pelvis CT scan showed possible acute cholecystitis, cholelithiasis, diverticulosis without diverticulitis. There is no common bile duct dilatation. ED tx: NS 1 L bolus, morphine 2 mg IV, Zofran 4 mg IV, Zosyn 3.375 mg IV. He was admitted to the medical-surgical unit and treated with IV piperacillin-tazobactam. Abdominal ultrasound showed cholelithiasis with thickened gallbladder wall and a 3.5 cm mass or irregular shaped polyp along the anterior wall of the gallbladder and mildly dilated common bile duct. Surgery was consulted and considered him too high risk for surgery, so he underwent cholecystotomy tube placement on 07/27/24. Culture of gallbladder fluid grew E. coli intermediate susceptibility to ampicillin and cefazolin; antibiotic were changed to ceftriaxone on 07/29. Upon discharge he was placed on cefuroxime for 11 days and will follow up with [facility] General Surgery for management of the drainage tube as well as further imaging of the gallbladder mass or poly. Diet was advanced with good tolerance and pain resolved. Eliquis was resumed. He was weaned off oxygen, which he had been placed on for hypoxia that was ultimately due to atelectasis. He was evaluated by PT and transferred to [facility] for short-term rehabilitation. Time Attestation Discharge Coordination Time (in mins): 35 Quality: Safe Use of Opioids Does Pt have an Active Cancer Diagnosis on the Problem List?: No Quality: Stroke Does the patient have a stroke diagnosis?: No Physical Exam Vital Signs: Vital Signs: Last Vital Signs Temp 96.9 F 07/30/24 07:32 Pulse 84 07/30/24 07:32 Resp 18 07/30/24 07:32 BP 152/71 H 07/30/24 07:32 Pulse Ox 98 07/30/24 07:32 O2 Del Method Room Air 07/30/24 07:32 O2 Flow Rate 4 07/28/24 07:12 BMI result Body Mass Index 23.7 Gen: in no acute distress HEENT: sclera anicteric, moist mucus membranes Neck: supple Lungs: clear to auscultation bilaterally Heart: regular rate and rhythm, no murmurs Abd: soft, non-tender, non-distended, cholecystotomy tube draining bile Ext: no edema Skin: warm/well-perfused Neuro: alert and oriented to self only, no focal weakness Psych: impaired insight DS: Data Data Completed and Pending Completed studies during hospitalization [Text1]: Laboratory Results WBC 9.0 X10*3/uL (4.8-10.8) 07/29/24 05:42 RBC 3.88 X10*6/uL (4.60-5.80) L 07/29/24 05:42 Hgb 13.1 g/dl (14.0-18.0) L 07/29/24 05:42 Hct 37.6 % (42.0-52.0) L 07/29/24 05:42 MCV 96.9 fL (80.0-98.0) 07/29/24 05:42 MCH 33.8 pg (27.0-33.0) H 07/29/24 05:42 MCHC 34.8 g/dl (31.0-36.0) 07/29/24 05:42 RDW 13.3 % (11.0-16.0) 07/29/24 05:42 Plt Count 211 X10*3/uL (160-400) 07/29/24 05:42 MPV 9.4 fL (9.4-12.4) 07/29/24 05:42 Immature Gran % (Auto) 0.9 % (0.0-0.4) H 07/27/24 05:33 Neut % (Auto) 85.9 % (45-73) H 07/27/24 05:33 Lymph % (Auto) 3.3 % (20-40) L 07/27/24 05:33 Cavalier % (Auto) 8.7 % (2-11) 07/27/24 05:33 Eos % (Auto) 1.0 % (0-4) 07/27/24 05:33 Baso % (Auto) 0.2 % (0-2) 07/27/24 05:33 Lymph # (Auto) 0.6 X10*3/uL (1.2-4.9) L 07/27/24 05:33 Cavalier # (Auto) 1.5 X10*3/uL (0.1-1.2) H 07/27/24 05:33 Eos # (Auto) 0.2 X10*3/uL (0.0-0.4) 07/27/24 05:33 Baso # (Auto) 0.0 X10*3/uL (0.0-0.2) 07/27/24 05:33 Abs Immat Gran (auto) 0.16 X10*3/uL (0.00-0.03) H 07/27/24 05:33 Absolute Neuts (auto) 15.1 x10*3/uL (2.0-8.3) H 07/27/24 05:33 Absolute Nucleated RBC 0.000 X10*3/uL (0.0-0.012) 07/29/24 05:42 Nucleated RBC % (auto) 0.0 /100WBC (0.0-0.2) 07/29/24 05:42 Smear Tech's Comments VERIFIED 07/27/24 05:33 PT 18.5 SEC (10.9-12.4) H 07/26/24 04:55 INR 1.6 (0.9-1.1) H 07/26/24 04:55 Sodium 143 mmol/L (135-145) 07/30/24 06:30 Potassium 4.2 mmol/L (3.3-5.1) 07/30/24 06:30 Chloride 106 mmol/L (96-108) 07/30/24 06:30 Carbon Dioxide 27 mmol/L (22-29) 07/30/24 06:30 Anion Gap 14 (12-20) 07/30/24 06:30 BUN 35 mg/dL (9-16) H 07/30/24 06:30 Creatinine 0.75 mg/dL (0.5-1.4) 07/30/24 06:30 Estim Creat Clear Calc 77.6 07/30/24 06:30 Estimated GFR > 60 07/30/24 06:30 POC Glucose 127 mg/dL (60-115) H 07/26/24 11:59 Random Glucose 106 mg/dL (60-115) 07/30/24 06:30 Lactic Acid 1.1 mmol/L (0.5-2.0) 07/26/24 01:57 EST Calcium 9.1 mg/dL (8.4-10.2) 07/30/24 06:30 Total Bilirubin 1.0 mg/dL (0.0-1.0) 07/30/24 06:30 Direct Bilirubin 0.4 mg/dL (0.0-0.5) 07/30/24 06:30 AST 53 U/L (5-37) H 07/30/24 06:30 ALT 27 U/L (0-40) 07/30/24 06:30 Alkaline Phosphatase 76 U/L (39-117) 07/30/24 06:30 Total Protein 6.8 g/dL (6.5-8.0) 07/30/24 06:30 Albumin 3.3 g/dL (3.5-5.0) L 07/30/24 06:30 Urine Color Yellow 07/25/24 21:56 Urine Appearance Turbid 07/25/24 21:56 Urine pH 8.5 (5.0-9.0) 07/25/24 21:56 Ur Specific [place] 1.020 (1.005-1.025) 07/25/24 21:56 Urine Protein 30 (1+) mg/dL (Neg-Trace) H 07/25/24 21:56 Urine Glucose (UA) Negative mg/dL (Negative) 07/25/24 21:56 Urine Ketones Trace mg/dL (Negative) 07/25/24 21:56 Urine Blood Negative (Negative) 07/25/24 21:56 Urine Nitrite Negative (Negative) 07/25/24 21:56 Ur Leukocyte Esterase Negative (Negative) 07/25/24 21:56 Urine RBC 0-2 /HPF (0-2) 07/25/24 21:56 Urine WBC 0-5 /HPF (0-5) 07/25/24 21:56 Ur Squamous Epith Cells 0-2 /HPF (0-2) 07/25/24 21:56 Urine Bacteria None Seen (None Seen) 07/25/24 21:56 Hyaline Casts 0-2 /LPF (0-2) 07/25/24 21:56 Digoxin 0.3 ng/mL (0.8-2.0) L 07/26/24 04:55 Impressions Abdomen/Pelvis CT 07/25/24 23:00 IMPRESSION: *Possible acute cholecystitis. Radiodense cholelithiasis is noted within the gallbladder lumen. A small quantity of pericholecystic fluid is present in combination with trace perihepatic fluid. This constellation of findings could be secondary to acute cholecystitis. This findings are suspicious for acute cholecystitis but not definitive for acute cholecystitis. As clinically indicated, consider further evaluation with right upper quadrant ultrasound. *Marked sigmoid diverticulosis. No evidence of acute diverticulitis. Electronically signed by: Evan Osullivan MD 07/26/2024 01:53 AM [facility] Chest X-Ray 07/26/24 06:00 IMPRESSION: *Markedly low lung volumes. *Mild bibasilar airspace opacities. These findings represent atelectasis in the setting of low lung volumes. Electronically signed by: Evan Osullivan MD 07/26/2024 06:33 AM EST RP Abdomen Ultrasound 07/26/24 07:35 IMPRESSION: 1. Cholelithiasis with thickened gallbladder wall. 2. There is 3.5 cm mass or irregular shaped polyp along the anterior wall of the gallbladder. 3. Mildly dilated common bile duct. Electronically signed by: Bertrand Mix MD 07/26/2024 08:43 AM EST RP Microbiology 07/27/24 13:30 Gallbladder Gram Stain - Final 07/27/24 13:30 Gallbladder Routine Culture - Final Escherichia coli Discharge Plan Discharge Anticipated Discharge Date/Time: 07/30/24 11:39 Patient Disposition: [facility] Discharge Diagnosis: cholecystitis, gallbaldder mass or polyp Referrals: [facility] [Other] - 1 Day (Short term rehab) Fawad Barlow MD [Physician] - 1 Week Michael Polanco MD [Primary Care Provider] - 1 Week Discharge Medications: New cefuroxime axetil 500 mg tablet 500 mg PO BID Qty: 22 0RF Continued metoprolol succinate 100 mg tablet extended release 24 hr 150 mg PO DAILY 90 Days Qty: 135 3RF Men's 50 Plus Multivitamin 400-20-370 mcg Tablet 1 tab PO DAILY digoxin 125 mcg (0.125 mg) tablet 125 mcg PO Q2D@0900 Rx Instructions: DUE 07/26/24 loratadine [Claritin] 10 mg tablet 10 mg PO DAILY finasteride 5 mg tablet 5 mg PO BEDTIME tamsulosin 0.4 mg capsule 0.4 mg PO BID fluticasone propionate 50 mcg/actuation spray,suspension 1 spray intranasal BEDTIME Rx Instructions: administer into each nostril prednisone 5 mg tablet 5 mg PO BEDTIME Eliquis 5 mg tablet 5 mg PO BID Qty: 180 3RF Discontinued amoxicillin 500 mg capsule 500 mg PO TID Rx Instructions: START 2 DAYS PRIOR TO DENTAL SURGERY - DENTAL SURGERY ON Saturday07/29/24 Discharge Orders: Discharge Order (Routine); Ordered 07/30/24 Ordered By: Ofelia Call Diet: Advance to usual diet Activity on Discharge: As tolerated Stand Alone Forms: Patient Portal Discharge page Print Language: Yemeni Care Plan Goals: recovery from infection Health Concerns: cholecystitis, gallbaldder mass or polyp Plan of Treatment: cefuroxime 500 mg twice daily for 11 days gallbladder drain in place; follow up with [facility] General Surgery in 1 week; further imaging to be ordered by Surgery Please follow up with your primary care doctor within 1 week of discharge from short-term rehabilitation. Return to the hospital if you experience recurrent or worsening symptoms. Assessment: See Discharge Summary.
[2024-07-30] MEDS: cefTRIAXone sodium 1 GM VIAL IVPUSH (12:28)
--- NOTE | 2024-07-30 12:35 | P.PNGS_ITS ---
Subjective Subjective Date of Service: 07/30/24 Interval history: Feels better. Tolerating diet. Denies pain. Physical Exam 2 Vital Signs: Vital Signs: Last Vital Signs Temp 96.9 F 07/30/24 07:32 Pulse 84 07/30/24 07:32 Resp 18 07/30/24 07:32 BP 152/71 H 07/30/24 07:32 Pulse Ox 98 07/30/24 07:32 O2 Del Method Room Air 07/30/24 07:32 O2 Flow Rate 4 07/28/24 07:12 BMI result Body Mass Index 23.7 Const: General: comfortable, no acute distress and alert GI: Other: cholecystostomy tube in place, bilious drainage Inspection: No distended Palpation (GI): Soft to palpation and Tenderness to palpation present (GI) (mild RUQ tenderness, improved ) Skin: General skin exam: no rashes or lesions noted Objective Data Active Medications Acetaminophen (Acetaminophen 325 Mg Tablet) 975 mg PO Q6H PRN PRN Reason: Pain, Mild (Pain Scale 1-3), fever or headache Last Admin: 07/29/24 19:20 Dose: 975 mg Documented By: CARA Apixaban (Apixaban 5 Mg Tablet) 5 mg PO BID [facility] Last Admin: 07/30/24 07:38 Dose: 5 mg Documented By: KAYLEE Ceftriaxone Sodium (Ceftriaxone Sodium 1 Gm Vial) 1 gm IVPUSH Q24H [facility] Last Admin: 07/30/24 12:28 Dose: 1 gm Documented By: KRISTOFER Digoxin (Digoxin 0.125 Mg Tablet) 0.125 mg PO Q2D@0900 [facility]; Protocol Last Admin: 07/30/24 07:38 Dose: 0.125 mg Documented By: KAYLEE Finasteride (Finasteride 5 Mg Tablet) 5 mg PO BEDTIME [facility] Last Admin: 07/29/24 19:20 Dose: 5 mg Documented By: CARA Fluticasone Propionate (Fluticasone Propionate Nasal 16 Gm [place]) 1 spray NOSTRIL-B BEDTIME [facility] Last Admin: 07/29/24 19:21 Dose: Not Given Documented By: CARA Non-Admin Reason: Patient Refused Hydromorphone HCl (Hydromorphone Hcl 0.5 Mg/0.5 Ml Syringe) 0.5 mg IVPUSH Q4H PRN; Protocol PRN Reason: Pain, Severe (Pain Scale 7-10) Last Admin: 07/29/24 05:32 Dose: 0.5 mg Documented By: CARA Melatonin (Melatonin 3 Mg Tablet) 6 mg PO BEDTIME [facility] Last Admin: 07/29/24 19:20 Dose: 6 mg Documented By: CARA Metoprolol Succinate (Metoprolol Succinate Er 50 Mg Tab.Er.24h) 150 mg PO DAILY [facility]; Protocol Last Admin: 07/30/24 07:38 Dose: 150 mg Documented By: KAYLEE Multivitamins/Vitamin C (Multivitamin Tablet) 1 tab PO DAILY [facility] Last Admin: 07/30/24 07:38 Dose: 1 tab Documented By: KAYLEE Omeprazole (Omeprazole 20 Mg Capsule.Dr) 20 mg PO DAILY@0630 [facility] Last Admin: 07/30/24 06:26 Dose: 20 mg Documented By: CARA Ondansetron HCl (Ondansetron Hcl 4 Mg/2 Ml Vial) 4 mg IVPUSH Q8H PRN PRN Reason: Nausea and Vomiting Oxycodone HCl (Oxycodone Hcl Immed Release 5 Mg Tablet) 5 mg PO Q6H PRN PRN Reason: Pain, Moderate(Pain Scale 4-6) Last Admin: 07/27/24 12:54 Dose: 5 mg Documented By: TRISH Prednisone (Prednisone 5 Mg Tablet) 5 mg PO BEDTIME [facility] Last Admin: 07/29/24 19:21 Dose: 5 mg Documented By: CARA Sodium Chloride (0.9 % Sodium Chloride Flush 3 Ml Syringe) 3 ml IVFLUSH QSHIFT [facility] Last Admin: 07/30/24 07:39 Dose: 3 ml Documented By: KAYLEE Tamsulosin HCl (Tamsulosin Hcl 0.4 Mg Capsule) 0.4 mg PO BID [facility] Last Admin: 07/30/24 07:38 Dose: 0.4 mg Documented By: KAYLEE Labs 07/29/24 05:42 07/30/24 06:30 Labs: Laboratory Results - last 24 hr 07/30/24 06:30 Anion Gap 14 Estim Creat Clear Calc 77.6 Estimated GFR > 60 Random Glucose 106 Calcium 9.1 Total Bilirubin 1.0 Direct Bilirubin 0.4 AST 53 H ALT 27 Alkaline Phosphatase 76 Total Protein 6.8 Albumin 3.3 L Microbiology Microbiology Results: Microbiology 07/27/24 13:30 Gram Stain - Final Gallbladder Routine Culture - Final Escherichia coli Procedures Date of Service Date of Service: 07/30/24 Progress Note: A&P Assessment and plan (1) Acute cholecystitis: Status: Acute Plan S/p Cholecystostomy tube. Abd exam is improved, mild RUQ tenderness. Tube with bilious drainage. Surgically stable for dc on oral abx, outpatient f/u with Dr. Lyman for further management of cholecystostomy tube. Time Spent With Patient Time: Total time managing care of this patient today ____ minutes. Quality Stroke Does the patient have a stroke diagnosis?: No VTE Prior VTE?: No VTE Risk Level:: Medical - moderate - high VTE Device Contraindication: N/A - Device Ordered VTE Drug Contraindication: Treatment Not Indicated
== END 2024-07-30 15:00 | disposition skilled nursing facility (03) | DRG 444 ==
LOC: HO.ED 07-26 01:29 → HO.EDOVER 07-26 06:20 → HO.S3 07-26 13:50
PROVIDERS: Hospitalist; Radiology Vascular & Interventional Radiology; Admitting Provider Internal Medicine; Emergency Provider Internal Medicine; PCP Internal Medicine; Visit Provider Family Medicine
PROC: 0F9430Z Drainage of Gallbladder with Drainage Device, Percutaneous Approach (ICD-10-PCS; principal; 2024-07-27 13:40)
DX: K80.00 Calculus of gallbladder with acute cholecystitis without obstruction (principal); J96.01 Acute respiratory failure with hypoxia; I48.19 Other persistent atrial fibrillation; J98.11 Atelectasis; G30.9 Alzheimer's disease, unspecified; F02.80 Dementia in other diseases classified elsewhere, unspecified severity, without behavioral disturbance, psychotic disturbance, mood disturbance, and anxiety; K82.4 Cholesterolosis of gallbladder; B96.20 Unspecified Escherichia coli [E. coli] as the cause of diseases classified elsewhere; N40.0 Benign prostatic hyperplasia without lower urinary tract symptoms; Z87.891 Personal history of nicotine dependence; Z79.01 Long term (current) use of anticoagulants; Z79.51 Long term (current) use of inhaled steroids; Z79.52 Long term (current) use of systemic steroids; Z79.899 Other long term (current) drug therapy
CPT/HCPCS: 36415; 71045; 74177; 75989; 76705; 80048; 80053; 80076; 80162; 81001; 82248; 82947; 83605; 85025; 85027; 85610; 87070; 87077; 87186; 87205; 93005; 97162; 99285; C1729; C1769; J0696; J1160; J1171; J1630; J2270; J2470; J2543; J7120

== ENCOUNTER 2024-07-26 03:26 | Outpatient (BNV) | payer MEDICARE, OTHER, SELFPAY | END 2024-07-27 13:27 | PROVIDERS: Admitting Provider Internal Medicine; Emergency Provider Internal Medicine; PCP Internal Medicine; Visit Provider Radiology Vascular & Interventional Radiology | DX: K81.0 Acute cholecystitis (principal) | CPT/HCPCS: 47490 ==

== ENCOUNTER 2024-07-26 03:26 | Outpatient (BNV) | payer MEDICARE, OTHER, SELFPAY | END 2024-07-26 04:16 | PROVIDERS: Admitting Provider Internal Medicine; Emergency Provider Internal Medicine; PCP Internal Medicine; Visit Provider Internal Medicine | DX: R94.31 Abnormal electrocardiogram [ECG] [EKG] (principal) | CPT/HCPCS: 93010 ==

== ENCOUNTER → 2024-07-26 03:26 | Outpatient (BNV) | payer MEDICARE, OTHER, SELFPAY | PROVIDERS: Admitting Provider Internal Medicine; Emergency Provider Internal Medicine; PCP Internal Medicine; Visit Provider Surgery | DX: K81.0 Acute cholecystitis (principal) | CPT/HCPCS: 99222; 99232 ==

== ENCOUNTER → 2024-07-26 03:26 | Outpatient (BNV) | payer MEDICARE, OTHER, SELFPAY | PROVIDERS: Admitting Provider Internal Medicine; Emergency Provider Internal Medicine; PCP Internal Medicine; Visit Provider Internal Medicine | DX: K81.0 Acute cholecystitis (principal); I48.0 Paroxysmal atrial fibrillation; N40.0 Benign prostatic hyperplasia without lower urinary tract symptoms | CPT/HCPCS: 99223; 99232; 99239; 99499 ==

== ENCOUNTER 2024-08-10 09:38 | Outpatient (AMB) | payer MEDICARE, OTHER, SELFPAY ==
--- NOTE | 2024-08-10 09:42 | MHC.OFFVIS ---
Intake Visit Reasons: s/p cholecystostomy tube Intake Note: Patient here s/p cholecystostomy tube. Patient discharged on 07-30-2024. Patient resides at [facility] in [place]. Chest tube site looks clean. Healing well. Denies pain or discomfort. Digital Editor Required: No Accompanied by: and daughter Allergies No Known Allergies Allergy (Verified 08/10/24 09:49) HPI Comments Details: Patient was status post IR gallbladder tube drainage roughly a week ago. He is doing quite well. He is tolerating a diet. Having regular bowel habits. He is having bilious output from the drain and no drain issues. Patient presents here with his daughter and his . He is currently residing at an extended care facility but anticipates discharge home soon with A services. [facility] Medical History Atrial arrhythmia PAF (paroxysmal atrial fibrillation) Surgical History History of loop recorder Family History Father Myocardial infarct Mother No problems noted. Social History Household Members: Spouse Housing: House Do you presently have visiting nurse or other home services: No Patient Tobacco Use Status: Former Tobacco user service: Yes Current occupational status: retired Current occupation: Right Handed Physical Exam GI Other: Abdomen is soft. Drain intact. Bilious output. Dressing of drain changed. Assessment & Plan Assessment & Plan (1) Acute cholecystitis: Code(s): K81.0 - Acute cholecystitis Category: Surgical (2) Gallbladder mass: Code(s): K82.8 - Other specified diseases of gallbladder Category: Surgical Plan I discussed with the family therapeutic options which include in 6 weeks from the time of drain placement IR tube contrast study to document gallbladder cystic duct patency and drain removal. Patient daughter and asked about possible cholecystectomy. At the time of his initial presentation, patient was very high-risk, septic, and on Eliquis. He is tentatively scheduled to see his dramatic arts historian next week. I discussed with the family members that they should review this with the dramatic arts historian and if he is cleared medically, we can proceed with cholecystectomy or otherwise he will require drain study in 4 weeks' time. All questions answered. His Eliquis will also need to be stopped should he be scheduled for cholecystectomy. Coding Level of Care Code Est Pt Level 5 (60204) Diagnoses Acute cholecystitis K81.0 Gallbladder mass K82.8
== END 2024-08-10 10:20 | disposition home or self-care (01) ==
PROVIDERS: PCP Internal Medicine; Visit Provider Surgery
DX: K81.0 Acute cholecystitis (principal); K82.8 Other specified diseases of gallbladder
CPT/HCPCS: 99213

== ENCOUNTER → 2024-08-10 09:38 | Outpatient (BNVA) | payer MEDICARE, OTHER, SELFPAY | PROVIDERS: PCP Internal Medicine; Visit Provider Surgery | DX: Z48.815 Encounter for surgical aftercare following surgery on the digestive system (principal); Z90.49 Acquired absence of other specified parts of digestive tract; Z97.8 Presence of other specified devices | CPT/HCPCS: 99212 ==

== ENCOUNTER 2024-08-17 12:13 | Outpatient (AMB) | payer MEDICARE, OTHER, SELFPAY ==
[2024-08-17 12:30] VITALS: BP 138/64; PULSE 81; BMI 22.1
--- NOTE | 2024-08-17 12:30 | A.OFFVIS_ITS ---
Vital Signs 08/17/24 12:30 Height 6 ft 2 in Weight 172 lb 6.424 oz BMI 22.1 BP 138/64 Blood Pressure Location Lt brachial Position Sitting Pulse 81 Pulse Source Pulse Oximeter Intake Visit Reasons: 6mth f/up R/S 07/02 Risk And Insurance Manager Required: No Accompanied by: Self / Same As Patient Allergies No Known Allergies Allergy (Verified 08/10/24 09:49) Medication List - Last Reconciled 08/17/24 by Kamari Osuna MD apixaban (Eliquis) 5 mg PO BID digoxin 125 mcg PO Q2D@0900 finasteride 5 mg PO BEDTIME fluticasone propionate 50 mcg/actuation 1 spray intranasal BEDTIME loratadine (Claritin) 10 mg PO DAILY metoprolol succinate ER 150 mg (1.5 x 100 mg) PO DAILY 90 days ozpckxov-wue-vcipl-vit K-lycop 400-20-370 mcg (Men's 50 Plus Multivitamin) 1 tab PO DAILY prednisone 5 mg PO BEDTIME tamsulosin 0.4 mg PO BID HPI Comments Details: Mihir returns for follow-up regarding atrial fibrillation. He also needs preoperative evaluation for gallbladder surgery. Currently, he has an IR gallbladder tube drainage. However, there is planned for possible gallbladder surgery. Per surgical note, it was felt to be a high-risk case initially as he was septic and also on Eliquis. From a cardiac standpoint, absolutely no symptoms. He does not have any angina or in fact anything of cardiac type. According to , he is losing weight which could be related to the recent gallbladder issues. [facility] Medical History Atrial arrhythmia PAF (paroxysmal atrial fibrillation) Surgical History History of loop recorder Family History Father Myocardial infarct Mother No problems noted. Social History Household Members: Spouse Housing: House Do you presently have visiting nurse or other home services: No Patient Tobacco Use Status: Former Tobacco user service: Yes Current occupational status: retired Current occupation: Right Handed Review of Systems Const Denies chills, Denies fatigue, Denies fever(s), Denies weight gain and Denies weight loss ENT Denies dizziness Card Denies chest pain, Denies leg edema, Denies lightheadedness, Denies palpitations, Denies dyspnea on exertion, Denies orthopnea and Denies other Resp Denies cough and Denies dyspnea on exertion GI Denies hematochezia and Denies change in stool character Musc Denies abnormal gait, Denies muscle weakness, Denies numbness, Denies radiating pain into limb and Denies tingling Neuro Denies abnormal gait, Denies dizziness, Denies numbness and Denies tingling Endo Denies fatigue and Denies palpitations Physical Exam Vital Signs: Last Vital Signs Pulse 81 08/17/24 12:30 BP 138/64 08/17/24 12:30 BMI result Body Mass Index 22.1 Const General: comfortable and no acute distress Orientation/consciousness: patient oriented x3 HEENT Other: Unremarkable Head: Yes normal to inspection Neck Neck: Yes normal visual inspection Chest Chest palpation & inspection: normal inspection of the chest Resp Auscultation: clear to auscultation bilaterally Cardio Palpation: normal PMI Heart sounds: S1 normal heart sound present, S2 normal heart sound present, no gallops, no murmurs and no rubs GI Palpation (GI): Soft to palpation Back/Spine/Pelvis Other: unremarkable Skin General skin exam: no rashes or lesions noted Neuro General: patient oriented x3 Extrem General: Yes normal to inspection Psych Mental Status: mental status grossly normal Assessment & Plan Assessment & Plan (1) Persistent atrial fibrillation: Code(s): I48.19 - Other persistent atrial fibrillation Category: Medical (2) Cardiomyopathy: Code(s): I42.9 - Cardiomyopathy, unspecified Category: Medical (3) Essential hypertension: Code(s): I10 - Essential (primary) hypertension Category: Medical Plan With regard to the atrial fibrillation itself, he is on metoprolol ER/digoxin. May continue that. It seems that in the last EKG, rate was slightly fast but he might have been ill from gallbladder issues. If there is clear evidence of rapid rates, then we can possibly go up on the digoxin to daily dosing but there were also sleeptime pauses in the past during ILR monitoring. With regard to cardiac function, LVEF has been slightly diminished in the past at 45-50% but in the most recent study, normalized. With regard to anticoagulation, on Eliquis. Continue. Stable blood pressure. With regard to the gallbladder issues, we discussed about cardiac risks from surgery. At his age, there is increased risk of cardiac complications including myocardial infarction, congestive heart failure and rarely . However, the alternative is to live with the drain which is not ideal either. After discussing the pros and cons, patient and family are leaning towards going ahead with the surgery. With regard to anticoagulation management, may hold the last 3-4 doses prior to surgery and resume as soon as possible after surgery. Holding it any longer inc reases his stroke risk. He is also on Prednisone which may increased perioperative issues like wound healing extra. Advised to discuss that with his own PCP. Otherwise, we will schedule a six-month follow-up appointment but they will contact us with any ongoing concerns. Plan discussed with and daughter and they are in agreement. Coding Level of Care Code Est Pt Level 4 (44636) Diagnoses Persistent atrial fibrillation I48.19 Cardiomyopathy I42.9 Essential hypertension I10
== END 2024-08-17 12:56 | disposition home or self-care (01) ==
PROVIDERS: PCP Internal Medicine; Visit Provider Internal Medicine
DX: I48.19 Other persistent atrial fibrillation (principal); I42.9 Cardiomyopathy, unspecified; I10 Essential (primary) hypertension
CPT/HCPCS: 99214

== ENCOUNTER → 2024-08-17 12:13 | Outpatient (BNVA) | payer MEDICARE, OTHER, SELFPAY | PROVIDERS: PCP Internal Medicine; Visit Provider Internal Medicine | DX: Z01.818 Encounter for other preprocedural examination (principal); I48.19 Other persistent atrial fibrillation; I42.9 Cardiomyopathy, unspecified; I10 Essential (primary) hypertension; Z95.818 Presence of other cardiac implants and grafts | CPT/HCPCS: 99212 ==

== ENCOUNTER → 2024-08-25 13:15 | Outpatient (BNV) | payer MEDICARE, OTHER, SELFPAY | PROVIDERS: PCP Internal Medicine; Visit Provider Internal Medicine Cardiovascular Disease | DX: R94.31 Abnormal electrocardiogram [ECG] [EKG] (principal) | CPT/HCPCS: 93010 ==

== ENCOUNTER 2024-09-03 11:08 | Inpatient (IN) | payer MEDICARE, OTHER, SELFPAY ==
--- NOTE | 2024-08-25 | ECG_ITS ---
Test Reason : preop Blood Pressure : / mmHG Vent. Rate : 088 BPM Atrial Rate : 000 BPM P-R Int : 000 ms QRS Dur : 096 ms QT Int : 328 ms P-R-T Axes : 000 042 022 degrees QTc Int : 396 ms Atrial fibrillation with premature ventricular or aberrantly conducted complexes Abnormal ECG When compared with ECG of 26-JUL-2024 04:16, T wave inversion no longer evident in Lateral leads Referred By: Jasmin Chawla Electronically Signed By:Estevan Chavez
[2024-08-25 12:10] VITALS: BP 116/55; PULSE 71; RESP 16; O2SAT 97; BMI 22.3
--- NOTE | 2024-08-25 12:29 | HO.ANESPROP2 ---
Documented by User: Jasmin Chawla NP 09/01/24 13:49 HPI - Anesthesia Eval Consult details Narrative: 89yo M for Cholecystectomy Laparoscopic,possible open, 09/03/24 Cardiac optimized. Discussed increased surgical/anesthesia risk with patient and family. Eliquis for afib [facility] admit 07/2024 ...treated with IV piperacillin-tazobactam. Abdominal ultrasound showed cholelithiasis with thickened gallbladder wall and a 3.5 cm mass or irregular shaped polyp along the anterior wall of the gallbladder and mildly dilated common bile duct. Surgery was consulted and considered him too high risk for surgery, so he underwent cholecystotomy tube placement on 07/27/24. Culture of gallbladder fluid grew E. coli intermediate susceptibility to ampicillin and cefazolin; antibiotic were changed to ceftriaxone on 07/29. Upon discharge he was placed on cefuroxime for 11 days and will follow up with [facility] General Surgery for management of the drainage tube as well as further imaging of the gallbladder mass or poly. Diet was advanced with good tolerance and pain resolved. Eliquis was resumed. He was weaned off oxygen, which he had been placed on for hypoxia that was ultimately due to atelectasis. He was evaluated by PT and transferred to [facility] for short-term rehabilitation. s/p CT-guided placement of a cholecystostomy tube 07/2024 with conscious sedation No illness since hospital discharge No CP/SOB with PT in rehab Prednisone 5 mg daily for OA knee. DIscussed stress dosing perioperatively. 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 (Acute) Status post placement of implantable loop recorder (Acute) Rotator cuff impingement syndrome of right shoulder (Acute) Atrial arrhythmia (Acute) PAF (paroxysmal atrial fibrillation) (Acute) Past Medical History Medical History (Updated 08/25/24 @ 12:41 by Erinn Jc RN) Hard of hearing Melanoma in situ of back Arthritis BPH (benign prostatic hyperplasia) UTI (urinary tract infection) Dementia On beta joanie at home On anticoagulant therapy HTN (hypertension) Atrial arrhythmia PAF (paroxysmal atrial fibrillation) Family History Family History Father Myocardial infarct Mother No problems noted. Family history of problems with anesthesia: No Surgical History Surgical History (Updated 08/25/24 @ 12:06 by Erinn Jc RN) Hx of local excision of skin lesion H/O colonoscopy History of loop recorder History of Problems with Anesthesia: No Social History Social History Household Members: Spouse Housing: House Are you a primary animal care provider to a significant other at home: No Do you presently have visiting nurse or other home services: Yes (PT, OT, Rn, and PACKAGING ASSEMBLER) Patient Tobacco Use Status: Former Tobacco user Use of substances other than those prescribed or required for medical reasons: No Have you been hit, kicked, punched, or otherwise hurt by someone within the past year? If so, by whom?: No Are you DNR?: Yes Advance Directives: No Advance Directives Information Provided: Yes Advance Directives on File: No Recently lost weight without trying: Yes How much weight loss: 14-23 pounds Eating poorly because of decreased appetite: Yes Nutrition screen score: 5 Poor oral hygiene: No service: Yes Current occupational status: retired Current occupation: Right Handed Meds Allergies Allergy/AdvReac Type Severity Reaction Status Date / Time No Known Allergies Allergy Verified 09/03/24 07:18 Home Medications ?Medication ?Instructions ?Recorded ?Confirmed ?Last Taken ?Type finasteride 5 mg tablet 5 mg PO BEDTIME 08/10/20 08/25/24 07/25/24 History fluticasone propionate 50 1 spray intranasal BEDTIME 08/10/20 08/25/24 Unknown History mcg/actuation nasal spray,suspension tamsulosin 0.4 mg capsule 0.4 mg PO BID 08/10/20 08/25/24 07/25/24 History loratadine 10 mg tablet (Claritin) 10 mg PO DAILY 03/06/21 08/25/24 07/25/24 History prednisone 5 mg tablet 5 mg PO BEDTIME 01/09/22 08/25/24 07/25/24 History digoxin 125 mcg (0.125 mg) tablet 125 mcg PO Q2D@0900 07/26/24 08/25/24 Unknown History kgsdpqqnkhzc-pff-fylhd acid-vit 1 tab PO DAILY 07/26/24 08/25/24 07/25/24 History K-lycop 400 mcg-20 mcg-370 mcg tablet (Men's 50 Plus Multivitamin) Exam Height,Weight and Vital Signs: Height 6 ft 2 in Weight 78.925 kg Last Vital Signs Pulse 71 08/25/24 12:10 Resp 16 08/25/24 12:10 BP 116/55 L 08/25/24 12:10 Pulse Ox 97 08/25/24 12:10 O2 Del Method Room Air 08/25/24 12:10 Pertinent Lab Results Pertinent Lab Results: Laboratory Tests 07/29/24 07/30/24 05:42 06:30 WBC 9.0 Hgb 13.1 L Hct 37.6 L Plt Count 211 Sodium 143 Potassium 4.2 Chloride 106 Carbon Dioxide 27 BUN 35 H Creatinine 0.75 Narrative Narrative: EKG 08/2024 Vent. Rate : 088 BPM Atrial Rate : 000 BPM P-R Int : 000 ms QRS Dur : 096 ms QT Int : 328 ms P-R-T Axes : 000 042 022 degrees QTc Int : 396 ms Atrial fibrillation with premature ventricular or aberrantly conducted complexes Abnormal ECG When compared with ECG of 26-JUL-2024 04:16, T wave inversion no longer evident in Lateral leads ECHO 06/2024 Conclusions: - 1. Normal LV ejection fraction 55-60% 2. Moderately dilated left atrium 3. Mild aortic regurgitation 4. Mildly dilated ascending aorta at 3.9 cm 5. No gross pericardial effusion Airway Mallampati Class: II TM Dist: >3cm Neck ROM: Full Loose/Missing/Broken Teeth: No Heart: irreg Lungs: CTAB Assessment and Plan Assessment Anesthesia Assessment: Anesthesia Plan Discussed and PAT Visit Final Anesthetic Review Family History of Problems with Anesthesia: No History of Problems with Anesthesia: No Documented by User: Rupa Ortega MD 09/03/24 08:41 [facility] Past Medical History Medical History (Updated 08/25/24 @ 12:41 by Erinn Jc RN) Hard of hearing Melanoma in situ of back Arthritis BPH (benign prostatic hyperplasia) UTI (urinary tract infection) Dementia On beta joanie at home On anticoagulant therapy HTN (hypertension) Atrial arrhythmia PAF (paroxysmal atrial fibrillation) Family History Family History Father Myocardial infarct Mother No problems noted. Surgical History Surgical History (Updated 08/25/24 @ 12:06 by Erinn Jc RN) Hx of local excision of skin lesion H/O colonoscopy History of loop recorder Social History Social History Household Members: Spouse Housing: House Are you a primary animal care provider to a significant other at home: No Do you presently have visiting nurse or other home services: Yes (PT, OT, Rn, and PACKAGING ASSEMBLER) Patient Tobacco Use Status: Former Tobacco user Use of substances other than those prescribed or required for medical reasons: No Have you been hit, kicked, punched, or otherwise hurt by someone within the past year? If so, by whom?: No Are you DNR?: Yes Advance Directives: No Advance Directives Information Provided: Yes Advance Directives on File: No Recently lost weight without trying: Yes How much weight loss: 14-23 pounds Eating poorly because of decreased appetite: Yes Nutrition screen score: 5 Poor oral hygiene: No service: Yes Current occupational status: retired Current occupation: Right [employer]ed [employer] Allergies Allergy/AdvReac Type Severity Reaction Status Date / Time No Known Allergies Allergy Verified 09/03/24 07:18 Home Medications ?Medication ?Instructions ?Recorded ?Confirmed ?Last Taken ?Type finasteride 5 mg tablet 5 mg PO BEDTIME 08/10/20 08/25/24 07/25/24 History fluticasone propionate 50 1 spray intranasal BEDTIME 08/10/20 08/25/24 Unknown History mcg/actuation nasal spray,suspension tamsulosin 0.4 mg capsule 0.4 mg PO BID 08/10/20 08/25/24 07/25/24 History loratadine 10 mg tablet (Claritin) 10 mg PO DAILY 03/06/21 08/25/24 07/25/24 History prednisone 5 mg tablet 5 mg PO BEDTIME 01/09/22 08/25/24 07/25/24 History digoxin 125 mcg (0.125 mg) tablet 125 mcg PO Q2D@0900 07/26/24 08/25/24 Unknown History fzcvlxctegxa-bhg-pueav acid-vit 1 tab PO DAILY 07/26/24 08/25/24 07/25/24 History K-lycop 400 mcg-20 mcg-370 mcg tablet (Men's 50 Plus Multivitamin) Assessment and Plan Final Anesthetic Review NPO: Yes ASA Class: III Final Preanesthetic Review: No Changes in Pt Med Stat, Meds/Allgs Chart Reviewed and Consent Obtained/Reviewed Patient Risk: Intermediate Procedure Risk: Low Anesthetic Plan Anesthetic Plan: GA Disposition: Standard PACU
--- NOTE | 2024-09-02 09:32 | P.HPSUR_ITS ---
Pre-Procedural Eval Section A - 24 Hr Update-Section A only Date of Service: 09/03/24 The patient is an INPATIENT: No Changes since office visit: No Cold of Flu in the past 2 weeks, No New Medical Problems, No Changes in Medication and No Patient answered all questions Section B - Complete if H&P > 30 days Chief Complaint: Acute cholecystitis,disease of gallbladder Allergies: Allergies Allergy/AdvReac Type Severity Reaction Status Date / Time No Known Allergies Allergy Verified 08/10/24 09:49 Review of Systems Sugical H&P ROS: Negative: Constitution, Cardiovascular, Respiratory, Neurological, Psychiatric, Hem-Onc, Allergic/Immunologic, Gastrointestinal, Genitourinary, Musculoskeletal, Integumentary, Endocrine and Eyes/Ear s/Nose/Throat Exam Surgical H&P Exam: Normal: HEENT, Normal: Heart, Normal: Lungs, Normal: Extremities, Normal: Abdomen, Normal: Skin and Normal: Neurological Plan I have reviewed the history and physical and performed a pertinent physical examination on my patient. No changes have occurred unless specified. Time Spent With Patient Time: Total time managing care of this patient today ____ minutes.
[2024-09-03] VITALS (22 sets, daily range): BP systolic 123–161; BP diastolic 60–79; PULSE 76–96; RESP 14–18; TEMP 36.1–36.9; O2SAT 93–99; BMI 21.8; BMI 22.6
[2024-09-03] MEDS: Lactated Ringers 1,000 ML 100 ML IVCONT (07:47)
--- NOTE | 2024-09-03 11:03 | W.PM.OPN ---
Operative Note Operative Note Date of Service: 09/03/24 Narrative: Preoperative diagnosis: [] History of acute cholecystitis, persistent biliary colic symptoms. IR placed gallbladder drain Postop diagnosis: [] The same Procedure [] laparoscopic cholecystectomy with cholangiogram Surgeon: [] Nura Hydrology Technician: [] Alden Type of Anesthesia: [] General Indication for surgery: [] Intraoperative findings demonstrated marked cicatrization and scarring of the gallbladder to the gallbladder fossa with omental and gastric adhesions to the gallbladder. Because of the significant hilar scarring, a cholangiogram was performed through the cystic duct to evaluate the anatomy , which demonstrated free flow of contrast into the extrahepatic biliary system and duodenum. Multiple large gallstones in the gallbladder. Gallbladder was pus filled/phlegmonous Findings: [] Patient brought to the operating room, placed on operative table supine position, after an adequate level of general anesthesia was induced, patient underwent IR placed gallbladder drain removal. The abdomen was then prepped draped in usual sterile fashion. Using a supraumbilical curvilinear incision, Strauss technique was used to insufflate abdominal cavity to 15 mm of CO2. Upper midline and right subcostal ports were placed in the usual fashion and the patient positioned in reverse Trendelenburg and tilted to the left. Findings were as noted above. Marked adhesions of the gallbladder to the anterior abdominal wall and liver bed were taken down using sharp dissection and Bovie. The cholecystostomy tube trach was also transected using Bovie. Next the gallbladder had omental and gastric adhesions swept off it and hilum was approached. The cystic duct/Adali's pouch junction was identified, circumferentially dissected out, skeletonized, and critical view obtained, and a cholecystodochotomy performed with Metzenbaum scissors and a cholangiocatheter which have been placed through the upper midline through a separate stab wound incision anterior abdominal cavity, and then was placed in the cystic duct and cholangiogram performed with findings as noted above. Cholangiocatheter was removed. Cystic duct was clipped proximally x2, distally x1, and transected. Cystic artery was next found and again traced directly into the gallbladder and skeletonized. This was clipped proximally x2, distally x1, and transected. Gallbladder which was significantly intrahepatic and markedly adhered to the gallbladder fossa was cauterized from the gallbladder fossa using Bovie. As noted above, gallbladder filled with several large gallstones. Gallbladder was placed in an Endo-Catch bag. The abdominal cavity was copiously irrigated and secured hemostasis. This was also accomplished using Bovie, and Surgicel. A Fidencio-Joseph drain was left in the gallbladder fossa and exited through the right subcostal port. This was secured to the skin using 2-0 nylon. Abdominal cavity was again secured for hemostasis. All ports removed under direct laparoscopic view. Wounds were closed in the following manner; umbilical wound has fascia reapproximated using interrupted 0 Vicryl sutures. Skin wounds were closed using subcuticular 4-0 Vicryl sutures followed by Steri-Strips and sterile dressings. Wounds were infiltrated 0.5% Marcaine at completion. Sponge, needle, and instrument counts reported correct. Patient tolerated the procedure well and emerged from anesthesia stable condition. EBL approximately 150 cc
[2024-09-03] MEDS: HYDROmorphone HCl 0.5 MG/0.5 ML SYRINGE 0.25 MG IVPUSH ×4 (11:17→11:47)
--- NOTE | 2024-09-03 11:45 | PHA.MEDREC ---
Addendum entered by Mtat Loo RPh 09/03/24 11:52: Reviewed by [facility]. Original Note: Pharmacy Consult ? Medication Reconciliation Pharmacy has reviewed the medication reconciliation done by nursing. Med list matched claims.
[2024-09-03] MEDS: Acetaminophen 325 MG TABLET 650 MG PO (18:05)
[2024-09-03] MEDS: Lactated Ringers 1,000 ML 60 ML IVCONT (18:09)
[2024-09-03] MEDS: 0.9 % Sodium Chloride Flush 3 ML SYRINGE IVFLUSH ×2 (18:14→21:11)
[2024-09-03] MEDS: Docusate Sodium 100 MG CAPSULE PO (21:05)
[2024-09-03] MEDS: Morphine Sulfate 4 MG/ML CARTRIDGE IVPUSH (21:13)
[2024-09-04] VITALS (8 sets, daily range): BP systolic 126–146; BP diastolic 57–69; PULSE 85–109; RESP 16–18; TEMP 36.3–36.8; O2SAT 92–95
[2024-09-04] MEDS: oxyCODONE HCl Immed Release 5 MG TABLET PO ×3 (00:02→17:17)
--- NOTE | 2024-09-04 00:37 | PC.NURSE ---
Addendum entered by Karen Muñoz RN 09/04/24 01:29: Orders received from Dr. Lyman for straight cath q6HR prn for bladder scan >350ml. Order placed by global technical writer per provider. Plan discussed with pt who was agreeable. Pt was s/c for 650ml odorless cyu. 07:30 due for reassessment bladder scan. Bed alarm in place. In-room camera placed for safety as pt is pleasantly confused due to dementia hx. Plan of care continues. Original Note: Pt only able to void 20ml odorless cyu. Post-void residual bladder scan obtained showing 646ml. Covering Dr. Curt Lyman notified w/ ? straight cath/parameters. Awaiting orders at this time. Patient is resting in bed in no apparent distress.
[2024-09-04] MEDS: Lactated Ringers 1,000 ML 60 ML IVCONT ×2 (05:23→19:19)
[2024-09-04 06:00] LABS: MANUAL DIFF FLAG NO
[2024-09-04 06:19] LABS: Basophils Percent Auto 0.4 % (0-2); Eosinophils Percent Auto 0.1 % (0-4); Hematocrit 36.4 % (42.0-52.0); Imm Gran Abs Auto 0.07 X10*3/uL (0.00-0.03); Imm Gran Pct Auto 0.6 % (0.0-0.4); Lymphocytes Absolute Auto 2.4 X10*3/uL (1.2-4.9); Lymphocytes Percent Auto 21.7 % (20-40); Mean Corpuscular Hemoglobin 32.7 pg (27.0-33.0); Mean Corpuscular Volume 99.2 fL (80.0-98.0); Mean Platelet Volume 9.3 fL (9.4-12.4); Monocytes Absolute Auto 1.4 X10*3/uL (0.1-1.2); Monocytes Percent Auto 12.7 % (2-11); Neutrophils Absolute Auto 7.1 x10*3/uL (2.0-8.3); Neutrophils Percent Auto 64.5 % (45-73); Platelet Count 200 X10*3/uL (160-400); Red Blood Count 3.67 X10*6/uL (4.60-5.80); Red Cell Distribution Width 14.2 % (11.0-16.0); White Blood Count 11.1 X10*3/uL (4.8-10.8)
--- NOTE | 2024-09-04 08:18 | PM.PNGS ---
Subjective Subjective Date of Service: 09/04/24 <Eloina Ruano PA-C - Last Filed: 09/04/24 08:30> 09/04/24 <Jagdish Lyman MD - Last Filed: 09/04/24 09:35> Interval history: Required straight cath overnight after he was bladder scanned for 600cc. Feels ok this morning. Having some incisional pain. <Eloina Ruano PA-C - Last Filed: 09/04/24 08:30> Physical Exam Vital Signs: Vital Signs: Last Vital Signs Temp 98.1 F 09/04/24 07:59 Pulse 85 09/04/24 07:59 Resp 16 09/04/24 07:59 BP 136/63 09/04/24 07:59 Pulse Ox 93 09/04/24 07:59 O2 Del Method Room Air 09/04/24 07:59 O2 Flow Rate 2 09/03/24 11:57 BMI result Body Mass Index 22.6 <Eloina Ruano PA-C - Last Filed: 09/04/24 08:30> Const: General: comfortable, no acute distress and alert <Eloina Ruano PA-C - Last Filed: 09/04/24 08:30> Resp: Effort & Inspection: normal respiratory effort <YULIANA Blake Last Filed: 09/04/24 08:30> GI: Other: CODY drain scant serosanguineous <Eloina Ruano PA-C - Last Filed: 09/04/24 08:30> Inspection: No distended and Yes incision (dressings clean and intact ) <Eloina Ruano PA-C - Last Filed: 09/04/24 08:30> Palpation (GI): Soft to palpation, Tenderness to palpation present (GI) (mild incisional) and no guarding <YULIANA Blake Last Filed: 09/04/24 08:30> Skin: General skin exam: no rashes or lesions noted and no jaundice <YULIANA Blake Last Filed: 09/04/24 08:30> Neuro: General: moves all extremities <YULIANA Blake Last Filed: 09/04/24 08:30> Objective Data Active Medications Acetaminophen (Acetaminophen 325 Mg Tablet) 650 mg PO Q6H PRN PRN Reason: Pain, Mild (Pain Scale 1-3), fever or headache Last Admin: 09/03/24 18:05 Dose: 650 mg Documented By: KELVIN Calcium Carbonate (Calcium Carbonate 750 Mg Tab.Chew) 750 mg PO Q4H PRN PRN Reason: Heartburn Docusate Sodium (Docusate Sodium 100 Mg Capsule) 100 mg PO BID [facility] Last Admin: 09/03/24 21:05 Dose: 100 mg Documented By: SUNSHINE Lactated Ringer's (Lr) 1,000 mls @ 60 mls/hr IVCONT .[id number] [facility] Last Admin: 09/04/24 05:23 Dose: 60 mls/hr Documented By: SUNSHINE Magnesium Hydroxide (Milk Of Magnesia 30 Ml Oral.Susp) 30 ml PO DAILY PRN PRN Reason: Constipation Melatonin (Melatonin 3 Mg Tablet) 6 mg PO BEDTIME PRN PRN Reason: Insomnia Morphine Sulfate (Morphine Sulfate 4 Mg/Ml Cartridge) 4 mg IVPUSH Q4H PRN; Protocol PRN Reason: Pain, Severe (Pain Scale 7-10) Last Admin: 09/03/24 21:13 Dose: 4 mg Documented By: SUNSHINE Ondansetron HCl (Ondansetron Hcl 4 Mg/2 Ml Vial) 4 mg IVPUSH Q8H PRN PRN Reason: Nausea and Vomiting Oxycodone HCl (Oxycodone Hcl Immed Release 5 Mg Tablet) 5 mg PO Q4H PRN PRN Reason: Pain, Moderate(Pain Scale 4-6) Last Admin: 09/04/24 00:02 Dose: 5 mg Documented By: SUNSHINE Sodium Chloride (0.9 % Sodium Chloride Flush 3 Ml Syringe) [facility] Last Admin: 09/03/24 21:11 Dose: 3 ml Documented By: SUNSHINE <Eloina Ruano PA-C - Last Filed: 09/04/24 08:30> Labs CBC & Chem 7: 09/04/24 05:37 <Eloina Ruano PA-C - Last Filed: 09/04/24 08:30> Labs: Laboratory Results - last 24 hr 09/04/24 05:37 MCV 99.2 H MCH 32.7 MCHC 33.0 RDW 14.2 Plt Count 200 MPV 9.3 L Immature Gran % (Auto) 0.6 H Neut % (Auto) 64.5 Lymph % (Auto) 21.7 [facility] % (Auto) 12.7 H Eos % (Auto) 0.1 Baso % (Auto) 0.4 Lymph # (Auto) 2.4 [facility] [place] # (Auto) 1.4 H Eos # (Auto) 0.0 Baso # (Auto) 0.0 Abs Immat Gran (auto) 0.07 H Absolute Neuts (auto) 7.1 Absolute Nucleated RBC 0.000 Nucleated RBC % (auto) 0.0 <Eloina Ruano PA-C - Last Filed: 09/04/24 08:30> Procedures Date of Service Date of Service: 09/04/24 <Eloina Ruano PA-C - Last Filed: 09/04/24 08:30> 09/04/24 <Jagdish Lyman MD - Last Filed: 09/04/24 09:35> Progress Note: A&P Assessment and plan (1) Acute cholecystitis: Status: Acute <Eloina Ruano PA-C - Last Filed: 09/04/24 08:30> Assessment and Plan: POD #1 s/p lap cholecystectomy with IOC. Intraoperative findings demonstrated marked cicatrization and scarring of the gallbladder to the gallbladder fossa with omental and gastric adhesions to the gallbladder, phlegmonous gallbladder. Multiple large gallstones. He was admitted following for observation. Doing fairly well this morning, abd benign with appropriate post op tenderness. CODY drain output decreasing, now more serosanguineous- will remove prior to DC. AM CBC reviewed. May need estevez cath if unable to void. Will consult PT for dispo planning. Resume eliquis tomorrow. <Eloina Ruano PA-C - Last Filed: 09/04/24 08:30> POD #1 s/p lap cholecystectomy with IOC. Intraoperative findings demonstrated marked cicatrization and scarring of the gallbladder to the gallbladder fossa with omental and gastric adhesions to the gallbladder, phlegmonous gallbladder. Multiple large gallstones. He was admitted following for observation. Doing fairly well this morning, abd benign with appropriate post op tenderness. CODY drain output decreasing, now more serosanguineous- will remove prior to DC. AM CBC reviewed. May need estevez cath if unable to void. Will consult PT for dispo planning. Resume eliquis tomorrow. LFTs this am. <Jagdish Lyman MD - Last Filed: 09/04/24 09:35> Time Spent With Patient Time: Total time managing care of this patient today ____ minutes. <Eloina Ruano PA-C - Last Filed: 09/04/24 08:30> Quality Stroke Does the patient have a stroke diagnosis?: No <Eloina Ruano PA-C - Last Filed: 09/04/24 08:30> VTE Prior VTE?: No <Eloina Ruano PA-C - Last Filed: 09/04/24 08:30> VTE Risk Level:: Surgical - high <Eloina Ruano PA-C - Last Filed: 09/04/24 08:30> VTE Device Contraindication: N/A - Device Ordered <Eloina Ruano PA-C - Last Filed: 09/04/24 08:30> VTE Drug Contraindication: N/A - Med Ordered <Eloina Ruano PA-C - Last Filed: 09/04/24 08:30>
[2024-09-04] MEDS: Docusate Sodium 100 MG CAPSULE PO ×2 (09:25→21:14)
[2024-09-04 10:19] LABS: Alanine Aminotransferase 72 U/L (0-40); Alkaline Phosphatase 66 U/L (39-117); Aspartate Amino Transferase 99 U/L (5-37); Bilirubin Direct 0.4 mg/dL (0.0-0.5); Bilirubin Total 1.3 mg/dL (0.0-1.0); Total Protein 6.3 g/dL (6.5-8.0)
[2024-09-04] MEDS: Metoprolol Succinate ER 50 MG TAB.ER.24H 150 MG PO (10:38)
[2024-09-04] MEDS: Digoxin 0.125 MG TABLET PO (10:38)
[2024-09-04] MEDS: Tamsulosin HCL 0.4 MG CAPSULE PO ×2 (10:38→21:14)
[2024-09-04] MEDS: Morphine Sulfate 4 MG/ML CARTRIDGE IVPUSH ×2 (11:14→18:14)
[2024-09-04] MEDS: 0.9 % Sodium Chloride Flush 3 ML SYRINGE IVFLUSH ×2 (17:18→19:20)
[2024-09-04] MEDS: Finasteride 5 MG TABLET PO (21:14)
[2024-09-04] MEDS: predniSONE 5 MG TABLET PO (21:14)
[2024-09-05] VITALS (9 sets, daily range): BP systolic 104–150; BP diastolic 50–74; PULSE 86–108; RESP 15–18; TEMP 35.8–36.6; O2SAT 94–97
--- NOTE | 2024-09-05 01:59 | PC.NURSE ---
Due to times from previous shift, patients bladder scan monitoring was due for 1999, 09-04-. Patient with no void at that time, denied bladder pain or pressure, or need to void. Bladder scan amount was 30ml, therefore, no action needed as MD orders are to st cath >350ml. Next due 0200 and again patient with no void, no discomfort, and declined to get OOB to stand and try to void. Bladder scan at this time revealed 281ml, no action taken at this time, however, will continue to monitor and encourage void attempt. next scan due 0800.
[2024-09-05] MEDS: Morphine Sulfate 4 MG/ML CARTRIDGE IVPUSH ×2 (04:26→22:20)
--- NOTE | 2024-09-05 04:37 | PC.NURSE ---
0415- Patient assisted with 2 to get OOB and stand at bedside, attempted to void, not because he asked but encouraged to, stood with walker and then back to bed. Repositioned and medicated for pain as he stated it hurts alot , will continue to monitor.
[2024-09-05] MEDS: Lactated Ringers 1,000 ML 60 ML IVCONT ×2 (07:11→23:25)
[2024-09-05] MEDS: Metoprolol Succinate ER 50 MG TAB.ER.24H 150 MG PO (09:36)
[2024-09-05] MEDS: Tamsulosin HCL 0.4 MG CAPSULE PO ×2 (09:36→20:17)
[2024-09-05] MEDS: Docusate Sodium 100 MG CAPSULE PO ×2 (09:36→20:17)
[2024-09-05] MEDS: oxyCODONE HCl Immed Release 5 MG TABLET PO (09:37)
[2024-09-05] MEDS: Apixaban 5 MG TABLET PO ×2 (09:40→20:17)
--- NOTE | 2024-09-05 09:56 | P.PNGS_ITS ---
Subjective Subjective Date of Service: 09/05/24 Interval history: accdg to staff, marginal PO intake pt says he is comfortable denies pain he does not recall having surgery Physical Exam 2 Vital Signs: Vital Signs: Last Vital Signs Temp 97.4 F 09/05/24 07:21 Pulse 108 H 09/05/24 09:36 Resp 18 09/05/24 07:21 BP 136/61 09/05/24 09:36 Pulse Ox 96 09/05/24 07:21 O2 Del Method Room Air 09/05/24 07:21 O2 Flow Rate 1 09/05/24 03:09 BMI result Body Mass Index 22.6 Const: General: comfortable and no acute distress Resp: Effort & Inspection: normal respiratory effort Cardio: Rhythm: regular rhythm GI: Other: incisions clean and dry Palpation (GI): Soft to palpation, not firm and no guarding Objective Data Active Medications Acetaminophen (Acetaminophen 325 Mg Tablet) 650 mg PO Q6H PRN PRN Reason: Pain, Mild (Pain Scale 1-3), fever or headache Last Admin: 09/03/24 18:05 Dose: 650 mg Documented By: KELVIN Apixaban (Apixaban 5 Mg Tablet) 5 mg PO BID [facility] Last Admin: 09/05/24 09:40 Dose: 5 mg Documented By: REJI Calcium Carbonate (Calcium Carbonate 750 Mg Tab.Chew) 750 mg PO Q4H PRN PRN Reason: Heartburn Digoxin (Digoxin 0.125 Mg Tablet) 0.125 mg PO Q2D@0900 [facility]; Protocol Last Admin: 09/04/24 10:38 Dose: 0.125 mg Documented By: DENNY Docusate Sodium (Docusate Sodium 100 Mg Capsule) 100 mg PO BID [facility] Last Admin: 09/05/24 09:36 Dose: 100 mg Documented By: REJI Finasteride (Finasteride 5 Mg Tablet) 5 mg PO BEDTIME [facility] Last Admin: 09/04/24 21:14 Dose: 5 mg Documented By: SAE Fluticasone Propionate (Fluticasone Propionate Nasal 16 Gm [place]) 1 spray NOSTRIL-B BEDTIME [facility] Last Admin: 09/04/24 21:15 Dose: Not Given Documented By: SAE Non-Admin Reason: Patient Refused Lactated Ringer's (Lr) 1,000 mls @ 60 mls/hr IVCONT .[id number] [facility] Last Admin: 09/05/24 07:11 Dose: 60 mls/hr Documented By: SAE Magnesium Hydroxide (Milk Of Magnesia 30 Ml Oral.Susp) 30 ml PO DAILY PRN PRN Reason: Constipation Melatonin (Melatonin 3 Mg Tablet) 6 mg PO BEDTIME PRN PRN Reason: Insomnia Metoprolol Succinate (Metoprolol Succinate Er 50 Mg Tab.Er.24h) 150 mg PO DAILY [facility]; Protocol Last Admin: 09/05/24 09:36 Dose: 150 mg Documented By: REJI Morphine Sulfate (Morphine Sulfate 4 Mg/Ml Cartridge) 4 mg IVPUSH Q4H PRN; Protocol PRN Reason: Pain, Severe (Pain Scale 7-10) Last Admin: 09/05/24 04:26 Dose: 4 mg Documented By: SAE Ondansetron HCl (Ondansetron Hcl 4 Mg/2 Ml Vial) 4 mg IVPUSH Q8H PRN PRN Reason: Nausea and Vomiting Oxycodone HCl (Oxycodone Hcl Immed Release 5 Mg Tablet) 5 mg PO Q4H PRN PRN Reason: Pain, Moderate(Pain Scale 4-6) Last Admin: 09/05/24 09:37 Dose: 5 mg Documented By: ESTELITA Prednisone (Prednisone 5 Mg Tablet) 5 mg PO BEDTIME [facility] Last Admin: 09/04/24 21:14 Dose: 5 mg Documented By: SAE Sodium Chloride (0.9 % Sodium Chloride Flush 3 Ml Syringe) 3 ml IVFLUSH QSHIFT [facility] Last Admin: 09/05/24 09:52 Dose: Not Given Documented By: REJI Non-Admin Reason: IV Running Tamsulosin HCl (Tamsulosin Hcl 0.4 Mg Capsule) 0.4 mg PO BID [facility] Last Admin: 09/05/24 09:36 Dose: 0.4 mg Documented By: REJI Labs 09/04/24 05:37 Labs: Laboratory Results - last 24 hr 09/04/24 09:41 Total Bilirubin 1.3 H Direct Bilirubin 0.4 AST 99 H ALT 72 H Alkaline Phosphatase 66 Total Protein 6.3 L Albumin 3.0 L Procedures Date of Service Date of Service: 09/05/24 Progress Note: A&P Assessment and plan (1) Acute cholecystitis: Status: Acute Assessment and Plan: S/P lap catherine clinically looks well abd soft however, oral intake still marginal has urinary retention Mojica ambulate push PO intake Discussed with casework manager about need for placement on discharge Time Spent With Patient Time: Total time managing care of this patient today ____ minutes. Quality Stroke Does the patient have a stroke diagnosis?: No VTE Prior VTE?: No VTE Risk Level:: Surgical - high VTE Device Contraindication: N/A - Device Ordered VTE Drug Contraindication: N/A - Med Ordered
[2024-09-05] MEDS: Acetaminophen 325 MG TABLET 650 MG PO (14:30)
--- NOTE | 2024-09-05 15:01 | MHC.CM.PN ---
CM MET WITH PT AND THEN CONTACTED HIS TWO HCPS ROBE AND TANESHA VIA T/C PT LIVES AT HOME WITH HIS AND DAUGHTER AND IS INDEPENDENT AT BASELINE HE IS CURRENTLY USING A WALKER AND CANE PRN HE IS ACTIVE WITH [facility] AND HAS [employer] HCP AND LIVING WILL ON FILE PCP: ELIDIA GERARDO IMM DELIVERED STR BEING RECOMMENDED, PT STATING HE WOULD PREFER TO GO HOME PTS AND DAUGHTER REPORT THEY WOULD ALSO PREFER PT TO BE HOME HOWEVER IF HE MUST GO TO STR, [facility] WOULD BE PREFERRED PER DISCUSSION, DC PLAN WILL BE CONFIRMED SATURDAY FOLLOWING AN UPDATED PT ASSESSMENT STR VS HOME WITH RESUMPTION OF [facility] TRANSPORT TBD BY DISPO: FAMILY VS BLS
--- NOTE | 2024-09-05 15:05 | PC.NURSE ---
Pt able to ambulate with 1A and walker around the unit 2x today. Pt using incentive spirometer with good effort.
[2024-09-05] MEDS: predniSONE 5 MG TABLET PO (20:17)
[2024-09-05] MEDS: Finasteride 5 MG TABLET PO (20:18)
[2024-09-05] MEDS: 0.9 % Sodium Chloride Flush 3 ML SYRINGE IVFLUSH (22:24)
[2024-09-06 03:04] VITALS: BP 141/76; PULSE 93; RESP 18; TEMP 36.5; O2SAT 94
[2024-09-06 07:16] VITALS: BMI 22.2
[2024-09-06 07:20] VITALS: BP 140/65; PULSE 96; RESP 16; TEMP 36; O2SAT 94
[2024-09-06] MEDS: Tamsulosin HCL 0.4 MG CAPSULE PO ×2 (08:50→21:05)
[2024-09-06] MEDS: Docusate Sodium 100 MG CAPSULE PO ×2 (08:50→21:05)
[2024-09-06 08:52] VITALS: BP 140/64; PULSE 104
[2024-09-06] MEDS: Digoxin 0.125 MG TABLET PO (08:52)
[2024-09-06] MEDS: Apixaban 5 MG TABLET PO ×2 (08:52→21:05)
[2024-09-06] MEDS: Metoprolol Succinate ER 50 MG TAB.ER.24H 150 MG PO (08:52)
--- NOTE | 2024-09-06 10:25 | PM.PNGS ---
Subjective Subjective Date of Service: 09/06/24 Interval history: Feels well this morning Has had good oral intake Ambulating down the hallway Physical Exam Vital Signs: Vital Signs: Last Vital Signs Temp 96.8 F 09/06/24 07:20 Pulse 104 H 09/06/24 08:52 Resp 16 09/06/24 07:20 BP 140/64 H 09/06/24 08:52 Pulse Ox 94 09/06/24 07:20 O2 Del Method Room Air 09/06/24 07:20 O2 Flow Rate 1 09/05/24 03:09 BMI result Body Mass Index 22.6 Const: Other: Looks well General: comfortable and no acute distress Eyes: Sclerae: sclerae normal Resp: Effort & Inspection: normal respiratory effort Cardio: Rate: regular rate GI: Other: Incisions clean and dry Palpation (GI): Soft to palpation, not firm and no guarding Objective Data Active Medications Acetaminophen (Acetaminophen 325 Mg Tablet) 650 mg PO Q6H PRN PRN Reason: Pain, Mild (Pain Scale 1-3), fever or headache Last Admin: 09/05/24 14:30 Dose: 650 mg Documented By: ESTELITA Apixaban (Apixaban 5 Mg Tablet) 5 mg PO BID [facility] Last Admin: 09/06/24 08:52 Dose: 5 mg Documented By: REJI Calcium Carbonate (Calcium Carbonate 750 Mg Tab.Chew) 750 mg PO Q4H PRN PRN Reason: Heartburn Digoxin (Digoxin 0.125 Mg Tablet) 0.125 mg PO Q2D@0900 [facility]; Protocol Last Admin: 09/06/24 08:52 Dose: 0.125 mg Documented By: REJI Docusate Sodium (Docusate Sodium 100 Mg Capsule) 100 mg PO BID [facility] Last Admin: 09/06/24 08:50 Dose: 100 mg Documented By: REJI Finasteride (Finasteride 5 Mg Tablet) 5 mg PO BEDTIME [facility] Last Admin: 09/05/24 20:18 Dose: 5 mg Documented By: SAE Fluticasone Propionate (Fluticasone Propionate Nasal 16 Gm [place]) 1 spray NOSTRIL-B BEDTIME [facility] Last Admin: 09/05/24 20:22 Dose: Not Given Documented By: SAE Non-Admin Reason: Patient Refused Lactated Ringer's (Lr) 1,000 mls @ 60 mls/hr IVCONT .[id number] [facility] Last Admin: 09/05/24 23:25 Dose: 60 mls/hr Documented By: SAE Magnesium Hydroxide (Milk Of Magnesia 30 Ml Oral.Susp) 30 ml PO DAILY PRN PRN Reason: Constipation Melatonin (Melatonin 3 Mg Tablet) 6 mg PO BEDTIME PRN PRN Reason: Insomnia Metoprolol Succinate (Metoprolol Succinate Er 50 Mg Tab.Er.24h) 150 mg PO DAILY [facility]; Protocol Last Admin: 09/06/24 08:52 Dose: 150 mg Documented By: REJI Morphine Sulfate (Morphine Sulfate 4 Mg/Ml Cartridge) 4 mg IVPUSH Q4H PRN; Protocol PRN Reason: Pain, Severe (Pain Scale 7-10) Last Admin: 09/05/24 22:20 Dose: 4 mg Documented By: SAE Ondansetron HCl (Ondansetron Hcl 4 Mg/2 Ml Vial) 4 mg IVPUSH Q8H PRN PRN Reason: Nausea and Vomiting Oxycodone HCl (Oxycodone Hcl Immed Release 5 Mg Tablet) 5 mg PO Q4H PRN PRN Reason: Pain, Moderate(Pain Scale 4-6) Last Admin: 09/05/24 09:37 Dose: 5 mg Documented By: ESTELITA Prednisone (Prednisone 5 Mg Tablet) 5 mg PO BEDTIME [facility] Last Admin: 09/05/24 20:17 Dose: 5 mg Documented By: SAE Sodium Chloride (0.9 % Sodium Chloride Flush 3 Ml Syringe) 3 ml IVFLUSH QSHIFT [facility] Last Admin: 09/06/24 08:49 Dose: Not Given Documented By: REJI Non-Admin Reason: IV Running Tamsulosin HCl (Tamsulosin Hcl 0.4 Mg Capsule) 0.4 mg PO BID [facility] Last Admin: 09/06/24 08:50 Dose: 0.4 mg Documented By: REJI Labs 09/04/24 05:37 Procedures Date of Service Date of Service: 09/06/24 Progress Note: A&P Assessment and plan (1) Acute cholecystitis: Status: Acute Assessment and Plan: Status post laparoscopic cholecystectomy Good oral intake Ambulating Looks well Awaiting placement to rehab/SNF DONI madera was in retention yesterday Time Spent With Patient Time: Total time managing care of this patient today ____ minutes. Quality Stroke Does the patient have a stroke diagnosis?: No VTE Prior VTE?: No VTE Risk Level:: Surgical - high VTE Device Contraindication: N/A - Device Ordered VTE Drug Contraindication: N/A - Med Ordered
[2024-09-06 12:00] VITALS: BP 108/55; PULSE 59; RESP 16; TEMP 36.2; O2SAT 97
[2024-09-06 15:06] VITALS: BP 112/57; PULSE 68; RESP 18; TEMP 36.2; O2SAT 98
[2024-09-06] MEDS: Lactated Ringers 1,000 ML 60 ML IVCONT (16:07)
--- NOTE | 2024-09-06 16:13 | PC.NURSE ---
Addendum entered by Kimberly Mendez RN 09/06/24 18:25: pt still unable to void, straight cath per md Barlow for 175ml, due to void at 0000. Original Note: pt f/c removed at 10am this morning. pt has not voided 6 hours later since removal. Bladder scan for 128ml. Pt ambulated around unit multiple times this shift with one assist and walker, pt has good po fluid intake. Per md Barlow straight cath in 2 hours if pt has not voided.
[2024-09-06 19:27] VITALS: BP 127/64; PULSE 74; RESP 18; TEMP 36.4; O2SAT 96
[2024-09-06] MEDS: OLANZapine 5 MG TABLET PO (21:05)
[2024-09-06] MEDS: Melatonin 3 MG TABLET 6 MG PO (21:05)
[2024-09-06] MEDS: predniSONE 5 MG TABLET PO (21:05)
[2024-09-06] MEDS: Finasteride 5 MG TABLET PO (21:06)
--- NOTE | 2024-09-06 21:30 | PC.NURSE ---
Pt A&Ox1, confused, impulsive, trying to get out of bed without any assistance. Pt was redirected multiple times to stay in the bed, but was restless/agitated. Pt had no PRN, MD Ignacio Dill was notified of the situation. One time dose of Zyprexa 5mg PO was given to pt with good effect, see MAR. Pt was able to settle down in bed comfortably with camera in room and call delgado within reach. Will continue to monitor the pt's behavior.
[2024-09-07] VITALS (7 sets, daily range): BP systolic 113–161; BP diastolic 53–89; PULSE 77–103; RESP 16–19; TEMP 35.8–36.6; O2SAT 94–97
--- NOTE | 2024-09-07 03:08 | PC.NURSE ---
Pt was due to void at 00:00, pt was unable to void at that time. After 02:00, pt woke up and walked to the bathroom w/ 1A, voided 350ml tea color urine. Pt was bladder scan for 550ml at 02:35. Per MD order, pt straight cath at 02:45 for total of 600ml urine. Bladder scan again and was 0ml. Will continue to monitor pt's output.
--- NOTE | 2024-09-07 07:59 | PM.PNGS ---
Subjective Subjective Date of Service: 09/07/24 <Eloina Ruano PA-C - Last Filed: 09/07/24 08:02> 09/07/24 <Jagdish Lyman MD - Last Filed: 09/07/24 08:30> Interval history: Estevez removed yesterday. Required straight cath x 2 overnight. Next due to void at 9am. Had been ambulating over the weekend. Tolerating diet. <Eloina Ruano PA-C - Last Filed: 09/07/24 08:02> Physical Exam Vital Signs: Vital Signs: Last Vital Signs Temp 96.8 F 09/07/24 07:39 Pulse 77 09/07/24 07:39 Resp 16 09/07/24 07:39 BP 138/63 09/07/24 07:39 Pulse Ox 97 09/07/24 07:39 O2 Del Method Room Air 09/07/24 07:39 O2 Flow Rate 1 09/05/24 03:09 BMI result Body Mass Index 22.2 <Eloina Ruano PA-C - Last Filed: 09/07/24 08:02> Const: General: comfortable and no acute distress <Eloina Ruano PA-C - Last Filed: 09/07/24 08:02> Resp: Effort & Inspection: normal respiratory effort <YULIANA Blake Last Filed: 09/07/24 08:02> GI: Other: CODY drain scant sersanguineous <Eloina Ruano PA-C - Last Filed: 09/07/24 08:02> Inspection: No distended and Yes incision (clean) <Eloina Ruano PA-C - Last Filed: 09/07/24 08:02> Skin: General skin exam: no rashes or lesions noted and no jaundice <YULIANA Blake Last Filed: 09/07/24 08:02> Neuro: General: moves all extremities <YULIANA Blake Last Filed: 09/07/24 08:02> Objective Data Active Medications Acetaminophen (Acetaminophen 325 Mg Tablet) 650 mg PO Q6H PRN PRN Reason: Pain, Mild (Pain Scale 1-3), fever or headache Last Admin: 09/05/24 14:30 Dose: 650 mg Documented By: ESTELITA Apixaban (Apixaban 5 Mg Tablet) 5 mg PO BID [facility] Last Admin: 09/06/24 21:05 Dose: 5 mg Documented By: ELEN Calcium Carbonate (Calcium Carbonate 750 Mg Tab.Chew) 750 mg PO Q4H PRN PRN Reason: Heartburn Digoxin (Digoxin 0.125 Mg Tablet) 0.125 mg PO Q2D@0900 [facility]; Protocol Last Admin: 09/06/24 08:52 Dose: 0.125 mg Documented By: REJI Docusate Sodium (Docusate Sodium 100 Mg Capsule) 100 mg PO BID [facility] Last Admin: 09/06/24 21:05 Dose: 100 mg Documented By: ELEN Finasteride (Finasteride 5 Mg Tablet) 5 mg PO BEDTIME [facility] Last Admin: 09/06/24 21:06 Dose: 5 mg Documented By: ELEN Fluticasone Propionate (Fluticasone Propionate Nasal [address]) 1 spray NOSTRIL-B BEDTIME [facility] Last Admin: 09/06/24 21:08 Dose: Not Given Documented By: ELEN Non-Admin Reason: Patient Refused Magnesium Hydroxide (Milk Of Magnesia 30 Ml Oral.Susp) 30 ml PO DAILY PRN PRN Reason: Constipation Melatonin (Melatonin 3 Mg Tablet) 6 mg PO BEDTIME PRN PRN Reason: Insomnia Last Admin: 09/06/24 21:05 Dose: 6 mg Documented By: ELEN Metoprolol Succinate (Metoprolol Succinate Er 50 Mg Tab.Er.24h) 150 mg PO DAILY [facility]; Protocol Last Admin: 09/06/24 08:52 Dose: 150 mg Documented By: REJI Morphine Sulfate (Morphine Sulfate 4 Mg/Ml Cartridge) 4 mg IVPUSH Q4H PRN; Protocol PRN Reason: Pain, Severe (Pain Scale 7-10) Last Admin: 09/05/24 22:20 Dose: 4 mg Documented By: SAE Ondansetron HCl (Ondansetron Hcl 4 Mg/2 Ml Vial) 4 mg IVPUSH Q8H PRN PRN Reason: Nausea and Vomiting Oxycodone HCl (Oxycodone Hcl Immed Release 5 Mg Tablet) 5 mg PO Q4H PRN PRN Reason: Pain, Moderate(Pain Scale 4-6) Last Admin: 09/05/24 09:37 Dose: 5 mg Documented By: ESTELITA Prednisone (Prednisone 5 Mg Tablet) 5 mg PO BEDTIME [facility] Last Admin: 09/06/24 21:05 Dose: 5 mg Documented By: ELEN Sodium Chloride (0.9 % Sodium Chloride Flush 3 Ml Syringe) 3 ml IVFLUSH QSHIFT [facility] Last Admin: 09/07/24 00:22 Dose: Not Given Documented By: ELEN Non-Admin Reason: IV Running Tamsulosin HCl (Tamsulosin Hcl 0.4 Mg Capsule) 0.4 mg PO BID [facility] Last Admin: 09/06/24 21:05 Dose: 0.4 mg Documented By: ELEN <Eloina Ruano PA-C - Last Filed: 09/07/24 08:02> Labs CBC & Chem 7: 09/04/24 05:37 <Eloina Ruano PA-C - Last Filed: 09/07/24 08:02> Procedures Date of Service Date of Service: 09/07/24 <Eloina Ruano PA-C - Last Filed: 09/07/24 08:02> 09/07/24 <Jagdish Lyman MD - Last Filed: 09/07/24 08:30> Progress Note: A&P Assessment and plan (1) Acute cholecystitis: Status: Acute <Eloina Ruano PA-C - Last Filed: 09/07/24 08:02> (2) S/P laparoscopic cholecystectomy: Status: Acute <YULIANA Blake Last Filed: 09/07/24 08:02> Assessment and Plan: Slowly recovering s/p lap CCY. Abd benign, incisions clean, CODY drain output nonbilious and scant. Required straight cath x 2 since estevez removal. If unable to void, reinsert estevez and place to leg bag with urology f/u. Already on finasteride, tamsulsin. Ready for dc to STR when bed available. Will remove drain prior. <YULIANA Blake Last Filed: 09/07/24 08:02> Slowly recovering s/p lap CCY. Abd benign, incisions clean, CODY drain output nonbilious and scant. Required straight cath x 2 since estevez removal. If unable to void, reinsert estevez and place to leg bag with urology f/u. Already on finasteride, tamsulsin. Ready for dc to STR when bed available. Will remove drain prior. CODY DC. Dressing applied. <Jagdish Lyman MD - Last Filed: 09/07/24 08:30> Time Spent With Patient Time: Total time managing care of this patient today ____ minutes. <Eloina Ruano PA-C - Last Filed: 09/07/24 08:02> Quality Stroke Does the patient have a stroke diagnosis?: No <Eloina Ruano PA-C - Last Filed: 09/07/24 08:02> VTE Prior VTE?: No <Eloina Ruano PA-C - Last Filed: 09/07/24 08:02> VTE Risk Level:: Surgical - high <Eloina Ruano PA-C - Last Filed: 09/07/24 08:02> VTE Device Contraindication: N/A - Device Ordered <Eloina Ruano PA-C - Last Filed: 09/07/24 08:02> VTE Drug Contraindication: N/A - Med Ordered <Eloina Ruano PA-C - Last Filed: 09/07/24 08:02>
[2024-09-07] MEDS: Apixaban 5 MG TABLET PO ×2 (09:17→19:58)
[2024-09-07] MEDS: Tamsulosin HCL 0.4 MG CAPSULE PO ×2 (09:17→19:58)
[2024-09-07] MEDS: 0.9 % Sodium Chloride Flush 3 ML SYRINGE IVFLUSH ×3 (09:18→20:01)
[2024-09-07] MEDS: Docusate Sodium 100 MG CAPSULE PO ×2 (09:19→19:58)
[2024-09-07] MEDS: Metoprolol Succinate ER 50 MG TAB.ER.24H 150 MG PO (09:19)
--- NOTE | 2024-09-07 11:56 | PC.NURSE ---
0945 Patietn voided 100ml, bladder scanned for >578ml. Eloina Ruano made aware, per PA estevez catheter to be ordered. Patient refusing estevez catheter placement, until MD speaks with patient. Eloina at beside to update patient plan of care. After speaking with PA patient agreeable to estevez. Estevez placed at 1145, no issues. 600ml clear yellow urine drained. Patient tolerated well.
[2024-09-07 12:37] LABS: Appearance Urine Clear; Color Urine Yellow; Glucose Urine UA Negative (Negative); Leukocyte Esterase Urine Negative (Negative); Nitrite Urine Negative (Negative); UMIC TRIGGER UA YES; Urine Blood Small (1+) (Negative); Urine Ketones Negative (Negative); Urine Protein Negative (Neg-Trace)
[2024-09-07 12:50] LABS: Bacteria Urine Trace (None Seen); Hyaline Casts Urine 0-2 /LPF (0-2); RBC Urine 0-2 /HPF (0-2); Squamous Epithelial Cell Urine 0-2 /HPF (0-2); WBC Urine 0-5 /HPF (0-5)
--- NOTE | 2024-09-07 13:38 | MHC.CM.PN ---
Patient not medically cleared for dc at this time. PT recommendation is STR. CM met with patient & /HCP at bedside. prefers to take patient home and resume services w/ [facility] including SN/PT/OPERATORS TEACHER. CM suggested services through [facility], declines at this time. CM will continue to follow.
[2024-09-07] MEDS: Milk of Magnesia 30 ML ORAL.SUSP PO (13:58)
[2024-09-07] MEDS: polyethylene glycoL 3350 17 GM POWD.PACK PO (13:59)
[2024-09-07] MEDS: Finasteride 5 MG TABLET PO (19:58)
[2024-09-07] MEDS: predniSONE 5 MG TABLET PO (19:58)
[2024-09-07] MEDS: Melatonin 3 MG TABLET 6 MG PO (23:05)
[2024-09-07] MEDS: Acetaminophen 325 MG TABLET 650 MG PO (23:05)
[2024-09-08 04:00] VITALS: RESP 16
[2024-09-08 06:27] LABS: MANUAL DIFF FLAG NO
[2024-09-08 06:47] LABS: Anion Gap 10 (12-20); Blood Urea Nitrogen 12 mg/dL (9-16); Calcium 8.2 mg/dL (8.4-10.2); Carbon Dioxide 28 mmol/L (22-29); Chloride 103 mmol/L (96-108); Creatinine Clr Calc Pharmacy 77.1; Estimated Glomerular Filt Rate > 60; Glucose Fasting 112 mg/dL (60-99); Potassium 4.3 mmol/L (3.3-5.1); Sodium 137 mmol/L (135-145)
[2024-09-08 07:06] LABS: Basophils Absolute Auto 0.1 X10*3/uL (0.0-0.2); Basophils Percent Auto 0.7 % (0-2); Eosinophils Absolute Auto 0.2 X10*3/uL (0.0-0.4); Eosinophils Percent Auto 2.4 % (0-4); Hematocrit 31.8 % (42.0-52.0); Hemoglobin 10.9 g/dl (14.0-18.0); Imm Gran Abs Auto 0.03 X10*3/uL (0.00-0.03); Imm Gran Pct Auto 0.4 % (0.0-0.4); Lymphocytes Absolute Auto 1.3 X10*3/uL (1.2-4.9); Lymphocytes Percent Auto 18.5 % (20-40); Mean Corpuscular HGB Conc 34.3 g/dl (31.0-36.0); Mean Corpuscular Hemoglobin 33.3 pg (27.0-33.0); Mean Corpuscular Volume 97.2 fL (80.0-98.0); Mean Platelet Volume 8.5 fL (9.4-12.4); Monocytes Absolute Auto 0.8 X10*3/uL (0.1-1.2); Monocytes Percent Auto 10.6 % (2-11); Neutrophils Absolute Auto 4.9 x10*3/uL (2.0-8.3); Neutrophils Percent Auto 67.4 % (45-73); Platelet Count 271 X10*3/uL (160-400); Red Blood Count 3.27 X10*6/uL (4.60-5.80); White Blood Count 7.2 X10*3/uL (4.8-10.8)
[2024-09-08 07:44] VITALS: BP 139/74; PULSE 91; RESP 18; TEMP 36.9; O2SAT 97
[2024-09-08] MEDS: Docusate Sodium 100 MG CAPSULE PO (09:07)
[2024-09-08] MEDS: Digoxin 0.125 MG TABLET PO (09:07)
[2024-09-08] MEDS: Metoprolol Succinate ER 50 MG TAB.ER.24H 150 MG PO (09:07)
[2024-09-08] MEDS: Tamsulosin HCL 0.4 MG CAPSULE PO (09:07)
[2024-09-08] MEDS: Apixaban 5 MG TABLET PO (09:07)
[2024-09-08] MEDS: polyethylene glycoL 3350 17 GM POWD.PACK PO (09:07)
[2024-09-08] MEDS: 0.9 % Sodium Chloride Flush 3 ML SYRINGE IVFLUSH (09:08)
--- NOTE | 2024-09-08 10:32 | P.PNGS_ITS ---
Subjective Subjective Date of Service: 09/08/24 Interval history: Patient is somewhat confused but this is his baseline apparently. Mojica reinserted because of urinary retention. Physical Exam 2 Vital Signs: Vital Signs: Last Vital Signs Temp 98.4 F 09/08/24 07:44 Pulse 91 09/08/24 07:44 Resp 18 09/08/24 07:44 BP 139/74 09/08/24 07:44 Pulse Ox 97 09/08/24 07:44 O2 Del Method Room Air 09/08/24 07:44 O2 Flow Rate 1 09/05/24 03:09 BMI result Body Mass Index 22.2 GI: Other: Abdomen is soft. CODY dressing clean dry and intact. Remaining incisions clean dry and intact healing well Objective Data Active Medications Acetaminophen (Acetaminophen 325 Mg Tablet) 650 mg PO Q6H PRN PRN Reason: Pain, Mild (Pain Scale 1-3), fever or headache Last Admin: 09/07/24 23:05 Dose: 650 mg Documented By: MISSAEL Apixaban (Apixaban 5 Mg Tablet) 5 mg PO BID [facility] Last Admin: 09/08/24 09:07 Dose: 5 mg Documented By: YVON Calcium Carbonate (Calcium Carbonate 750 Mg Tab.Chew) 750 mg PO Q4H PRN PRN Reason: Heartburn Digoxin (Digoxin 0.125 Mg Tablet) 0.125 mg PO Q2D@0900 [facility]; Protocol Last Admin: 09/08/24 09:07 Dose: 0.125 mg Documented By: YVON Docusate Sodium (Docusate Sodium 100 Mg Capsule) 100 mg PO BID [facility] Last Admin: 09/08/24 09:07 Dose: 100 mg Documented By: YVON Finasteride (Finasteride 5 Mg Tablet) 5 mg PO BEDTIME [facility] Last Admin: 09/07/24 19:58 Dose: 5 mg Documented By: MISSAEL Fluticasone Propionate (Fluticasone Propionate Nasal 16 Gm [place]) 1 spray NOSTRIL-B BEDTIME [facility] Last Admin: 09/07/24 20:04 Dose: Not Given Documented By: MISSAEL Non-Admin Reason: Patient Refused Magnesium Hydroxide (Milk Of Magnesia 30 Ml Oral.Susp) 30 ml PO DAILY PRN PRN Reason: Constipation Melatonin (Melatonin 3 Mg Tablet) 6 mg PO BEDTIME PRN PRN Reason: Insomnia Last Admin: 09/07/24 23:05 Dose: 6 mg Documented By: MISSAEL Metoprolol Succinate (Metoprolol Succinate Er 50 Mg Tab.Er.24h) 150 mg PO DAILY [facility]; Protocol Last Admin: 09/08/24 09:07 Dose: 150 mg Documented By: YVON Ondansetron HCl (Ondansetron Hcl 4 Mg/2 Ml Vial) 4 mg IVPUSH Q8H PRN PRN Reason: Nausea and Vomiting Oxycodone HCl (Oxycodone Hcl Immed Release 5 Mg Tablet) 5 mg PO Q4H PRN PRN Reason: Pain, Moderate(Pain Scale 4-6) Last Admin: 09/05/24 09:37 Dose: 5 mg Documented By: ESTELITA Polyethylene Glycol (Polyethylene Glycol 3350 17 Gm Powd.Pack) 17 gm PO DAILY [facility] Last Admin: 09/08/24 09:07 Dose: 17 gm Documented By: YVON Prednisone (Prednisone 5 Mg Tablet) 5 mg PO BEDTIME [facility] Last Admin: 09/07/24 19:58 Dose: 5 mg Documented By: MISSAEL Sodium Chloride (0.9 % Sodium Chloride Flush 3 Ml Syringe) 3 ml IVFLUSH QSHIFT [facility] Last Admin: 09/08/24 09:08 Dose: 3 ml Documented By: YVON Tamsulosin HCl (Tamsulosin Hcl 0.4 Mg Capsule) 0.4 mg PO BID [facility] Last Admin: 09/08/24 09:07 Dose: 0.4 mg Documented By: YVON Labs 09/08/24 06:12 09/08/24 06:12 Labs: Laboratory Results - last 24 hr 09/07/24 09/08/24 12:13 06:12 MCV 97.2 MCH 33.3 H MCHC 34.3 RDW 14.0 Plt Count 271 D MPV 8.5 L Immature Gran % (Auto) 0.4 Neut % (Auto) 67.4 Lymph % (Auto) 18.5 L [place] % (Auto) 10.6 Eos % (Auto) 2.4 Baso % (Auto) 0.7 Lymph # (Auto) 1.3 [place] # (Auto) 0.8 Eos # (Auto) 0.2 Baso # (Auto) 0.1 Abs Immat Gran (auto) 0.03 Absolute Neuts (auto) 4.9 Absolute Nucleated RBC 0.000 Nucleated RBC % (auto) 0.0 Anion Gap 10 L Estim Creat Clear Calc 77.1 Estimated GFR > 60 Fasting Glucose 112 H Calcium 8.2 L D Urine Color Yellow Urine Appearance Clear Urine pH 8.0 Ur Specific [place] 1.010 Urine Protein Negative Urine Glucose (UA) Negative Urine Ketones Negative Urine Blood Small (1+) H Urine Nitrite Negative Ur Leukocyte Esterase Negative Urine RBC 0-2 Urine WBC 0-5 Ur Squamous Epith Cells 0-2 Urine Bacteria Trace Hyaline Casts 0-2 Procedures Date of Service Date of Service: 09/08/24 Progress Note: A&P Assessment and plan (1) S/P laparoscopic cholecystectomy: Status: Acute (2) Urinary retention: Status: Acute Plan Urinary retention, awaiting ECF placement, diet as tolerated, PT consult Time Spent With Patient Time: Total time managing care of this patient today ____ minutes. Quality Stroke Does the patient have a stroke diagnosis?: No VTE Prior VTE?: No VTE Risk Level:: Surgical - high VTE Device Contraindication: N/A - Device Ordered VTE Drug Contraindication: N/A - Med Ordered
--- NOTE | 2024-09-08 10:34 | PM.PNGS ---
Subjective Subjective Date of Service: 09/08/24 Interval history: Confused this morning. OOB to chair by aide. Participated with PT yesterday. Per case management - still insistent on taking patient home instead of STR. Physical Exam Vital Signs: Vital Signs: Last Vital Signs Temp 98.4 F 09/08/24 07:44 Pulse 91 09/08/24 07:44 Resp 18 09/08/24 07:44 BP 139/74 09/08/24 07:44 Pulse Ox 97 09/08/24 07:44 O2 Del Method Room Air 09/08/24 07:44 O2 Flow Rate 1 09/05/24 03:09 BMI result Body Mass Index 22.2 Const: General: comfortable, no acute distress and alert Resp: Effort & Inspection: normal respiratory effort GI: Other: drain site dry Inspection: No distended and Yes incision (clean) Skin: General skin exam: no rashes or lesions noted and no jaundice Objective Data Active Medications Acetaminophen (Acetaminophen 325 Mg Tablet) 650 mg PO Q6H PRN PRN Reason: Pain, Mild (Pain Scale 1-3), fever or headache Last Admin: 09/07/24 23:05 Dose: 650 mg Documented By: MISSAEL Apixaban (Apixaban 5 Mg Tablet) 5 mg PO BID [facility] Last Admin: 09/08/24 09:07 Dose: 5 mg Documented By: YVON Calcium Carbonate (Calcium Carbonate 750 Mg Tab.Chew) 750 mg PO Q4H PRN PRN Reason: Heartburn Digoxin (Digoxin 0.125 Mg Tablet) 0.125 mg PO Q2D@0900 [facility]; Protocol Last Admin: 09/08/24 09:07 Dose: 0.125 mg Documented By: YVON Docusate Sodium (Docusate Sodium 100 Mg Capsule) 100 mg PO BID [facility] Last Admin: 09/08/24 09:07 Dose: 100 mg Documented By: YVON Finasteride (Finasteride 5 Mg Tablet) 5 mg PO BEDTIME [facility] Last Admin: 09/07/24 19:58 Dose: 5 mg Documented By: MISSAEL Fluticasone Propionate (Fluticasone Propionate Nasal 16 Gm Colome) 1 spray NOSTRIL-B BEDTIME [facility] Last Admin: 09/07/24 20:04 Dose: Not Given Documented By: MISSAEL Non-Admin Reason: Patient Refused Magnesium Hydroxide (Milk Of Magnesia 30 Ml Oral.Susp) 30 ml PO DAILY PRN PRN Reason: Constipation Melatonin (Melatonin 3 Mg Tablet) 6 mg PO BEDTIME PRN PRN Reason: Insomnia Last Admin: 09/07/24 23:05 Dose: 6 mg Documented By: MSISAEL Metoprolol Succinate (Metoprolol Succinate Er 50 Mg Tab.Er.24h) 150 mg PO DAILY [facility]; Protocol Last Admin: 09/08/24 09:07 Dose: 150 mg Documented By: YVON Ondansetron HCl (Ondansetron Hcl 4 Mg/2 Ml Vial) 4 mg IVPUSH Q8H PRN PRN Reason: Nausea and Vomiting Oxycodone HCl (Oxycodone Hcl Immed Release 5 Mg Tablet) 5 mg PO Q4H PRN PRN Reason: Pain, Moderate(Pain Scale 4-6) Last Admin: 09/05/24 09:37 Dose: 5 mg Documented By: ESTELITA Polyethylene Glycol (Polyethylene Glycol 3350 17 Gm Powd.Pack) 17 gm PO DAILY [facility] Last Admin: 09/08/24 09:07 Dose: 17 gm Documented By: YVON Prednisone (Prednisone 5 Mg Tablet) 5 mg PO BEDTIME [facility] Last Admin: 09/07/24 19:58 Dose: 5 mg Documented By: MISSAEL Sodium Chloride (0.9 % Sodium Chloride Flush 3 Ml Syringe) 3 ml IVFLUSH QSHIFT [facility] Last Admin: 09/08/24 09:08 Dose: 3 ml Documented By: YVON Tamsulosin HCl (Tamsulosin Hcl 0.4 Mg Capsule) 0.4 mg PO BID [facility] Last Admin: 09/08/24 09:07 Dose: 0.4 mg Documented By: YVON Labs 09/08/24 06:12 09/08/24 06:12 Labs: Laboratory Results - last 24 hr 09/07/24 09/08/24 12:13 06:12 MCV 97.2 MCH 33.3 H MCHC 34.3 RDW 14.0 Plt Count 271 D MPV 8.5 L Immature Gran % (Auto) 0.4 Neut % (Auto) 67.4 Lymph % (Auto) 18.5 L Wetzel % (Auto) 10.6 Eos % (Auto) 2.4 Baso % (Auto) 0.7 Lymph # (Auto) 1.3 Wetzel # (Auto) 0.8 Eos # (Auto) 0.2 Baso # (Auto) 0.1 Abs Immat Gran (auto) 0.03 Absolute Neuts (auto) 4.9 Absolute Nucleated RBC 0.000 Nucleated RBC % (auto) 0.0 Anion Gap 10 L Estim Creat Clear Calc 77.1 Estimated GFR > 60 Fasting Glucose 112 H Calcium 8.2 L D Urine Color Yellow Urine Appearance Clear Urine pH 8.0 Ur Specific Burton 1.010 Urine Protein Negative Urine Glucose (UA) Negative Urine Ketones Negative Urine Blood Small (1+) H Urine Nitrite Negative Ur Leukocyte Esterase Negative Urine RBC 0-2 Urine WBC 0-5 Ur Squamous Epith Cells 0-2 Urine Bacteria Trace Hyaline Casts 0-2 Procedures Date of Service Date of Service: 09/08/24 Progress Note: A&P Assessment and plan (1) S/P laparoscopic cholecystectomy: Status: Acute (2) Urinary retention: Status: Acute Plan s/p lap catherine. Abd benign. Drain site now dry. Hemodynamically stable. No acute post op issues but remains confused, now in urinary retention requiring estevez cath and will need this upon DC with urology f/u. PT has been recommending STR but family would like the patient home. He is currently stable for dc. Will discuss with PT and family final dc plans. Time Spent With Patient Time: Total time managing care of this patient today ____ minutes. Quality Stroke Does the patient have a stroke diagnosis?: No VTE Prior VTE?: No VTE Risk Level:: Surgical - high VTE Device Contraindication: N/A - Device Ordered VTE Drug Contraindication: N/A - Med Ordered
[2024-09-08 12:00] VITALS: BP 143/67; PULSE 86; RESP 16; TEMP 36.5; O2SAT 97
--- NOTE | 2024-09-08 12:59 | MHC.CM.PN ---
Addendum entered by Rose Marie Zhao RN 09/08/24 15:51: requesting to speak w/ this CM. Voicing concerns re: ability to care for patient at home, as patient can be impulsive and having frequent BM's. Also voicing clinical concerns, addressed by primary RN. CM provided emotional support and, again, discussed options of STR or additional services in the home. reports they have had bad experiences in a STR and she is not at all open to STR. Also not open to additional supports in the home, as she does not want the patient to become more confused. Daughter also present for conversation via telephone. She lives in the home and can provide assistance at times. Ultimately, after extensive conversation, no change to dc plan: dc home w/ family and resumption of [facility]. Again discussed BLS transport, as patient has been impulsive and reports she feels worried driving him. However, continues to decline BLS transport. Daughter, Anna, will come to [facility] to assist w/ transport. Original Note: Patient medically cleared for dc. continues to decline STR and is not open to additional home services ([facility]). Will dc home w/ [facility] of [facility] for SN/PT and DIRECTOR IN[employer]STOR RELATIONS 1x/wk. Offer BLS transport home, prefers to transport herself. RN will provide estevez teaching to . IMM delivered.
[2024-09-08] MEDS: Milk of Magnesia 30 ML ORAL.SUSP PO (13:37)
--- NOTE | 2024-09-08 15:17 | PM.DS ---
DS: Providers Provider Date of Service: 09/08/24 Date of admission: 09/03/24 11:08 Date of discharge: 09/08/24 Primary care physician: Michael Polanco MD Attending physician on admission: Jagdish Lyman Attending physician on discharge: Jagdish Lyman DS: Diagnosis Discharge Diagnosis (1) S/P laparoscopic cholecystectomy: Status: Acute (2) Urinary retention: Status: Acute DS: Summary Hospital Course Hospital Course: HPI AT ADMISSION: Patient was status post IR gallbladder tube drainage roughly a week ago for acute cholecystitis, sepsis. He is doing quite well. He is tolerating a diet. Having regular bowel habits. He is having bilious output from the drain and no drain issues. Patient presents here with his daughter and his . He is currently residing at an extended care facility but anticipates discharge home soon with VNA services. Therapeutic options which include in 6 weeks from the time of drain placement IR tube contrast study to document gallbladder cystic duct patency and drain removal were discussed however daughter and expressed wish for cholecystectomy. At the time of his initial presentation, patient was very high-risk, septic, and on Eliquis. He is tentatively scheduled to see his network operations specialist next week. I discussed with the family members that they should review this with the network operations specialist and when they saw him perioperative risks were discussed and the patient's family decided to proceed with surgery. All questions answered. His Eliquis was held 3-4 doses prior. HOSPITAL COURSE: On 09/03/24, laparoscopic cholecystectomy with cholangiogram was performed by Dr. Lyman without complication. Intraoperative findings demonstrated marked cicatrization and scarring of the gallbladder to the gallbladder fossa with omental and gastric adhesions to the gallbladder. CODY drain was placed intraoperatively. He was admitted post operatively for observation. His home meds were resumed. He had a slow recovery course. His eliquis was restarted on POD #2. He developed urinary retention and required estevez insertion and failed trial voiding after removal and required subsequent estevez reinsertion. He is to follow up with urology in 2 weeks for further management. Patient has baseline dementia and he had increased periods of confusion during his stay. UA was negative. Labs were ok. He pulled his CODY drain out. He had some oozing from the site but this resolved with pressure dressing and site was clean and dry at discharge. He was seen by PT who recommended STR however family was adament against this. Extensive discussion with and concerns were expressed regarding safety at home especially with estevez in place however family insisted on dc to home. Home services were arranged for VNA, PT and home health aide. On the day of discharge, he was tolerating solid diet, pain was minimal, he was ambulating with walker, he had good GI function. He was hemodynamically stable with benign abd exam and clean incisions. He was discharged on 09/08/24 in stable condition with estevez to leg bag with services. He is to follow up with Dr. Lyman and his PCP in 1 week. He is to follow up with urology in 2 weeks . Status at Discharge Overall status at discharge: patient is progressing back to baseline Time Attestation Discharge Coordination Time (in mins): 45 Quality: Safe Use of Opioids Does Pt have an Active Cancer Diagnosis on the Problem List?: No Quality: Stroke Does the patient have a stroke diagnosis?: No Physical Exam Vital Signs: Vital Signs: Last Vital Signs Temp 97.7 F 09/08/24 12:00 Pulse 86 09/08/24 12:00 Resp 16 09/08/24 12:00 BP 143/67 H 09/08/24 12:00 Pulse Ox 97 09/08/24 12:00 O2 Del Method Room Air 09/08/24 12:00 O2 Flow Rate 1 09/05/24 03:09 BMI result Body Mass Index 22.2 Const: General: comfortable, no acute distress and alert Resp: Effort & Inspection: normal respiratory effort GI: Other: CODY drain site dry Inspection: No distended and Yes incision (clean) Palpation (GI): Soft to palpation and no guarding Skin: General skin exam: no rashes or lesions noted and no jaundice Neuro: General: moves all extremities DS: Data Data Completed and Pending Completed studies during hospitalization [Text1]: Pending at discharge 09/03/24 09:54 Surgical [PTH] Routine Procedures Drainage of Gallbladder with Drainage Device, Percutaneous Approach (07/26/24) Discharge Plan Discharge Anticipated Discharge Date/Time: 09/08/24 12:27 Patient Disposition: Home Health Service Discharge Diagnosis: s/p laparoscopic cholecystectomy, urinary retention Referrals: [facility] [Outside] - 1 Week Gordo Yost MD [Physician] - 2 Weeks Michael Polanco MD [Primary Care Provider] - 1 Week Jagdish Lyman MD [Physician] - 1 Week Discharge Medications: New hydrocodone-acetaminophen 5-325 mg tablet 1 tab PO Q4-6H PRN (Reason: pain) Qty: 20 0RF Rx Instructions: Partial Fill upon patient request. sennosides [Senokot] 8.6 mg tablet 8.6 mg PO BID PRN (Reason: constipation) Qty: 30 0RF Continued metoprolol succinate 100 mg tablet extended release 24 hr 150 mg PO DAILY 90 Days Qty: 135 3RF Men's 50 Plus Multivitamin 400-20-370 mcg Tablet 1 tab PO DAILY digoxin 125 mcg (0.125 mg) tablet 125 mcg PO Q2D@0900 Rx Instructions: DUE 07/26/24 loratadine [Claritin] 10 mg tablet 10 mg PO DAILY finasteride 5 mg tablet 5 mg PO BEDTIME tamsulosin 0.4 mg capsule 0.4 mg PO BID fluticasone propionate 50 mcg/actuation spray,suspension 1 spray intranasal BEDTIME Rx Instructions: administer into each nostril prednisone 5 mg tablet 5 mg PO BEDTIME Eliquis 5 mg tablet 5 mg PO BID Qty: 180 3RF Discharge Orders: Discharge Order (Routine); Ordered 09/08/24 Ordered By: Eloina Ruano Diet: Advance to usual diet Activity on Discharge: No heavy lifting Stand Alone Forms: Patient Portal Discharge page Print Language: Kenyan Activity Restrictions/Additional Instructions: Ice to wound 20 minutes several times today and tomorrow. May shower. No strenuous activities Take Sennakot twice a day until having normal bowel movements. Estevez to leg bag. F/u with urology in 2 weeks. Care Plan Goals: Return to baseline health and resume normal activities following recovery period. Estevez removal. Health Concerns: acute cholecystitis urinary retention Plan of Treatment: s/p laparoscopic cholecystectomy estevez cath Assessment: Improved Patient Instructions: Estevez Catheter Placement and Care (DC) Discharge Date/Time: 09/08/24 16:50
--- NOTE | 2024-09-08 15:56 | PC.NURSE ---
Pt in distress about patient having bowel movements and unsure if she can take him home. Pt complaining to this television script writer that she didn't like the tone of voice. This television script writer apologized and stated to her that I speak in a commanding voice. Pt states He is in distress, I can't take him home like this. Pt is not in distress, he is having bowel movements from medication. VSS. This television script writer explained with case management that the patient is discharged and needs to come up with plan to take patient home or rehab. Pt Daughter on the cell phone listening to conversation. EMS offered to transport patient. Family refused. Daughter stated she will come help transport the patient home. This television script writer also offered adult pull ups, hiwot pads and incontinence wipes. Pts appreciated these items to help transport patient home. Pt primary RN updated with plan. Daughter should be in shortly to discharge the patient.
== END 2024-09-08 16:50 | disposition home health service (06) | DRG 419 ==
LOC: HO.SSSA 11:09 → HO.S3 14:19
PROVIDERS: Surgery; Admitting Provider Physician Assistant Surgical; PCP Internal Medicine; Visit Provider Physician Assistant Surgical
PROC: 0FT44ZZ Resection of Gallbladder, Percutaneous Endoscopic Approach (ICD-10-PCS; CPT 47562; principal; 2024-09-03 08:30)
DX: K80.00 Calculus of gallbladder with acute cholecystitis without obstruction (principal); K82.8 Other specified diseases of gallbladder; Z87.891 Personal history of nicotine dependence; F03.90 Unspecified dementia, unspecified severity, without behavioral disturbance, psychotic disturbance, mood disturbance, and anxiety; R33.9 Retention of urine, unspecified; Z79.01 Long term (current) use of anticoagulants; Z79.899 Other long term (current) drug therapy
CPT/HCPCS: 36415; 80048; 80076; 81001; 85025; 88304; 93005; 97116; 97162; 97530; C1726; C1758; J0131; J0690; J1171; J2250; J2270; J3010; J7120

== ENCOUNTER → 2024-09-03 11:08 | Outpatient (BNV) | payer MEDICARE, OTHER, SELFPAY | PROVIDERS: Admitting Provider Physician Assistant Surgical; PCP Internal Medicine; Visit Provider Surgery | DX: K81.0 Acute cholecystitis (principal) | CPT/HCPCS: 47563; 99024 ==

== ENCOUNTER 2024-09-14 12:51 | Outpatient (AMB) | payer MEDICARE, OTHER, SELFPAY ==
--- NOTE | 2024-09-14 13:18 | MHC.OFFVIS ---
Intake Visit Reasons: s/p Lap or open cholecystectomy Allergies No Known Allergies Allergy (Verified 09/03/24 07:18) HPI Comments Details: Patient presents with his family for follow-up. Aside from urologic issues for which he has a Mojica, he is otherwise doing relatively well. No incisional discomfort. He is eating/tolerating his diet. Having regular bowel habits. Not requiring analgesics. [facility] Medical History (Updated 09/08/24 @ 10:33 by Jagdish Lyman MD) Hard of hearing Melanoma in situ of back Arthritis BPH (benign prostatic hyperplasia) UTI (urinary tract infection) Dementia On beta joanie at home On anticoagulant therapy HTN (hypertension) Atrial arrhythmia PAF (paroxysmal atrial fibrillation) Surgical History (Updated 09/11/24 @ 10:46 by JOSE Escalona) S/P laparoscopic cholecystectomy (09/03/24) Hx of local excision of skin lesion H/O colonoscopy History of loop recorder Family History Father Myocardial infarct Mother No problems noted. Social History Household Members: Spouse Household Members Other:: daughter Housing: House Are you a primary critical care nurse to a significant other at home: No Do you presently have visiting nurse or other home services: No Comment: pt located across from nursing station Patient Tobacco Use Status: Former Tobacco user Tobacco use type: Cigarette Cigarette Packs Per Day: 1 Cigarettes Per Day: 20.0 service: Yes Current occupational status: retired Current occupation: Right Handed Physical Exam Eyes Other: Anicteric GI Other: Abdomen is soft, all wounds clean dry and intact healing well Assessment & Plan Assessment & Plan (1) S/P laparoscopic cholecystectomy: Onset Date: 09/03/24 Comment: Dr. uNra Dubon Code(s): Z90.49 - Acquired absence of other specified parts of digestive tract Category: Medical Plan Patient and and daughter have been given local wound instructions, and patient otherwise follow-up p.r.n.. He is scheduled to follow up with Urology regarding his Mojica catheter in several days as well. All questions answered. Coding Level of Care Code Global (04556) Diagnoses S/P laparoscopic cholecystectomy Z90.49
== END 2024-09-14 13:15 | disposition home or self-care (01) ==
PROVIDERS: PCP Internal Medicine; Visit Provider Surgery
DX: Z90.49 Acquired absence of other specified parts of digestive tract (principal)
CPT/HCPCS: 99024

== ENCOUNTER → 2024-09-14 12:51 | Outpatient (BNVA) | payer MEDICARE, OTHER, SELFPAY | PROVIDERS: PCP Internal Medicine; Visit Provider Surgery | DX: Z09 Encounter for follow-up examination after completed treatment for conditions other than malignant neoplasm (principal); Z90.49 Acquired absence of other specified parts of digestive tract | CPT/HCPCS: 99212 ==

== ENCOUNTER 2024-09-22 08:53 | Outpatient (AMB) | payer MEDICARE, OTHER, SELFPAY ==
--- NOTE | 2024-09-22 09:26 | AM.OFFVISNUR ---
Intake Visit Reasons: Voiding Trial Intake Note: New Patient presents for initial visit for voiding trial Urology Medications: finasteride, tamsulosin Blood Thinner: apixaban Customs Port Director Required: No Accompanied by: Unknown Allergies No Known Allergies Allergy (Verified 09/22/24 09:29) Nursing Note Patient presents for voiding trial. 120cc of sterile water instilled into bladder thru estevez catheter. 16fr estevez catheter removed deflating balloon. Patient tolerated procedure well. Patient did not void within 15 mins after catheter removal. Patient, and daughter came in to room.Patient will return at 2p to check in. All verbalized understanding. Hetal Ayala NP went in to meet with patient and family. Assessment & Plan Assessment & Plan Orders: Orders AMB Bladder/Catheter Procedure Today R33.9 - Retention of urine, unspecified
--- NOTE | 2024-09-22 10:09 | A.OFFVIS_ITS ---
Intake Visit Reasons: Voiding Trial Allergies No Known Allergies Allergy (Verified 09/23/24 17:49) Medication List - Last Reconciled 09/23/24 by CÉSAR Christensen apixaban (Eliquis) 5 mg PO BID digoxin 125 mcg PO Q2D@0900 finasteride 5 mg PO BEDTIME fluticasone propionate 50 mcg/actuation 1 spray intranasal BEDTIME hydrocodone-acetaminophen 5-325 mg 1 tab PO Q4-6H PRN loratadine (Claritin) 10 mg PO DAILY metoprolol succinate ER 150 mg (1.5 x 100 mg) PO DAILY 90 days oueiaojh-pzp-pkhov-vit K-lycop 400-20-370 mcg (Men's 50 Plus Multivitamin) 1 tab PO DAILY prednisone 5 mg PO BEDTIME sennosides (Senokot) 8.6 mg PO BID PRN tamsulosin 0.4 mg PO BID [facility] Medical History Hard of hearing Melanoma in situ of back Arthritis BPH (benign prostatic hyperplasia) UTI (urinary tract infection) Dementia On beta joanie at home On anticoagulant therapy HTN (hypertension) Atrial arrhythmia PAF (paroxysmal atrial fibrillation) Surgical History (Updated 09/16/24 @ 00:02 by Woody Scott) S/P laparoscopic cholecystectomy (09/03/24) Hx of local excision of skin lesion H/O colonoscopy History of loop recorder Family History Father Myocardial infarct Mother No problems noted. Social History Household Members: Spouse Household Members Other:: daughter Housing: House Are you a primary career information specialist to a significant other at home: No Do you presently have visiting nurse or other home services: No Comment: pt located across from nursing station Patient Tobacco Use Status: Former Tobacco user Tobacco use type: Cigarette Cigarette Packs Per Day: 1 Cigarettes Per Day: 20.0 service: Yes Current occupational status: retired Current occupation: Right Handed Office Procedures Bladder/Catheter Procedure 12151-Jhlgqvthcn of Bladder Procedure code (CPT) selection complete Post Void Residual Post Residual Void Post Void Residual (PVR): 383 [id number]-[id number] Void Residual by ultrasound Post Void Residual Post Residual Void Post Void Residual (PVR): 308 [id number]-Snzt Void Residual by ultrasound Assessment & Plan Assessment & Plan Orders: Orders AMB Bladder/Catheter Procedure 09/22/24 R33.9 - Retention of urine, unspecified Prostate Specific Antigen 09/22/24 R33.9 - Retention of urine, unspecified AMB Post Void Residual by ultrasound 09/22/24 R33.9 - Retention of urine, unspecified US retroperitoneal comp 09/22/24 R33.9 - Retention of urine, unspecified Coding Level of Care Code New Pt Level 4 (81975) CPT Codes Bladder/Catheter Procedure - CPT: 41976-Fdfngujzjr of Bladder ([id number]) Post Residual Void - PVR CPT Code: 54178-Hyhg Void Residual by ultrasound ([id number]) Post Residual Void - PVR CPT Code: 91061-Xcdm Void Residual by ultrasound ([id number])
--- NOTE | 2024-09-22 11:16 | AM.OFFVISNUR ---
Intake Visit Reasons: Voiding Trial Allergies No Known Allergies Allergy (Verified 09/22/24 09:29) Nursing Note Patient presents for voiding trial. Instilled 120cc of sterile water into bladder thru 16fr estevez catheter. Balloon deflated and catheter removed. Patient tolerated well. Small amount of red colored sediment noted at tip of catheter upon removal. Patient here with and daughter. Patient had not yet been seen by a provider in this office so Hetal Ayala NP saw patient. Patient did not void while in office. Patient agreed to return at 2p to this office. 1400p-patient returned to office. Patient and reported that patient did void at 1:22pm today. Patient reports he feels like he might need to urinate now. Cup provided to patient for clean catch specimen. Patient was unable to urinate at this time. PVR measured at 308ml. Patient's reported that he had several drinks of water while at home. I notified Hetal Ayala NP. Hetal went in to patient room to discuss. Hetal provided patient with CIC supplies for the next 2 days if he is unable to void. Hetal did CIC instruction and answered patient and family questions. Family also has a nurse to help them with CIC. Patient will call on if unable to void or if wanting to come in for PVR. Patient scheduling follow up visit in 6 weeks. 1445p-As patient was leaving office he felt the need to urinate again. Patient reported he did urinate. PVR completed again and measured 383ml. Patient still brought CIC supplies home and continuing with previous plan. Hetal Ayala NP notified of 2nd PVR. Office Procedures Bladder/Catheter Procedure 10075-Ndmlinpagv of Bladder Procedure code (CPT) selection complete Post Void Residual Post Residual Void Post Void Residual (PVR): 383 [id number]-Ytgd Void Residual by ultrasound Post Void Residual Post Residual Void Post Void Residual (PVR): 308 76219-Hcmu Void Residual by ultrasound Assessment & Plan Assessment & Plan Orders: Orders AMB Bladder/Catheter Procedure Today R33.9 - Retention of urine, unspecified Prostate Specific Antigen Today R33.9 - Retention of urine, unspecified AMB Post Void Residual by ultrasound Today R33.9 - Retention of urine, unspecified US retroperitoneal comp Today R33.9 - Retention of urine, unspecified Patient Instructions: The patient had an opportunity to ask questions regarding the treatment plan. All questions were answered. Physical exam, labs, and imaging were discussed and reviewed in detail. As well as risks, benefits, and discussion of treatment choices. No major barriers to understanding were identified. The patient expressed understanding and agreement with the above treatment plan. The patient was made aware they should contact our office by phone for worsening of their current condition, the appearance of new symptoms, or with any questions or concerns. Compliance is encouraged with any medications and follow up testing that is ordered. It is a privilege to be allowed the opportunity to participate in? your urological care.? Again, if you have any questions or concerns If you have any questions or concerns please do not hesitate to contact me. The office is [phone]. This note is constructed using voice recognition software. While every effort has been made to ensure accuracy pattern assembler errors may have been included. Yours sincerely, KAYLIN Christensen-JEN
--- NOTE | 2024-09-23 17:49 | MHC.OFFVIS ---
Intake Visit Reasons: Voiding Trial Allergies No Known Allergies Allergy (Verified 09/23/24 17:49) Medication List - Last Reconciled 09/23/24 by KAYLIN Christensen- apixaban (Eliquis) 5 mg PO BID digoxin 125 mcg PO Q2D@0900 finasteride 5 mg PO BEDTIME fluticasone propionate 50 mcg/actuation 1 spray intranasal BEDTIME hydrocodone-acetaminophen 5-325 mg 1 tab PO Q4-6H PRN loratadine (Claritin) 10 mg PO DAILY metoprolol succinate ER 150 mg (1.5 x 100 mg) PO DAILY 90 days wvmiprgm-njp-qahub-vit K-lycop 400-20-370 mcg (Men's 50 Plus Multivitamin) 1 tab PO DAILY prednisone 5 mg PO BEDTIME sennosides (Senokot) 8.6 mg PO BID PRN tamsulosin 0.4 mg PO BID HPI Comments Details: Mihir is a very pleasantly confused 89-year-old male patient of was accompanied by his and daughter at today's office visit. He has a past medical history of dementia, hypertension, paroxysmal AFib, arthritis, hard of hearing, and melanoma in Situ of back 1984. He presents to the office today as a new patient for urinary retention. In discussion with the patient and his family today reports having had recent chole[place] [facility] [place] Lyman in shortly after surgical procedure patient was unable to void and noted to have over 400 mL in his bladder at which time a Mojica catheter was placed and recommendations were made for urology referral for further assessment evaluation. In office voiding trial was performed and although patient was unable to void independently in the office he went home and returned back to the office for PVR. Patient reports he increased his fluids while he was at home and was able to void independently a good amount however did not measure urine output. PVR in office today 308 mL. We discussed further treatment options to include CIC verses reinsertion of indwelling Mojica catheter versus surveillance monitoring. Patient reports compliance with finasteride and Flomax as prescribed. He reports prior to procedure he has had issues in the past with incomplete bladder emptying and has been on Flomax. In review of patient's chart it appears last PSA 07/11 0.4. We discussed at length potential causes of urinary retention as well as incomplete bladder emptying. We discussed further workup as well as further treatment options and risks and benefits of these treatment options. All questions were answered. He otherwise offers no other issues or concerns at this time. [facility] Medical History Hard of hearing Melanoma in situ of back Arthritis BPH (benign prostatic hyperplasia) UTI (urinary tract infection) Dementia On beta joanie at home On anticoagulant therapy HTN (hypertension) Atrial arrhythmia PAF (paroxysmal atrial fibrillation) Surgical History (Updated 09/16/24 @ 00:02 by Woody Scott) S/P laparoscopic cholecystectomy (09/03/24) Hx of local excision of skin lesion H/O colonoscopy History of loop recorder Family History Father Myocardial infarct Mother No problems noted. Social History Household Members: Spouse Household Members Other:: daughter Housing: House Are you a primary adult care manager to a significant other at home: No Do you presently have visiting nurse or other home services: No Comment: pt located across from nursing station Patient Tobacco Use Status: Former Tobacco user Tobacco use type: Cigarette Cigarette Packs Per Day: 1 Cigarettes Per Day: 20.0 service: Yes Current occupational status: retired Current occupation: Right Handed Review of Systems Const Reports as per HPI Eyes Reports no additional complaints ENT Reports no additional complaints Card Reports as per HPI Resp Reports no additional complaints GI Reports as per HPI Reports as per HPI Musc Reports as per [facility] Skin/Breast Reports as per HPI Neuro Reports as per HPI Psych Reports no additional complaints Endo Reports no additional complaints Terry/Lymph Reports no additional complaints Aller/Immun Reports no additional complaints Physical Exam Const General: cooperative, healthy appearing, comfortable, no acute distress, well developed, alert and awake Orientation/consciousness: oriented to person HEENT Head: Yes normal to inspection, Yes normocephalic and Yes atraumatic Ears: hearing grossly normal bilaterally Eyes General: appearance normal, both eyes and all related structures Neck Neck: Yes normal visual inspection and Yes trachea midline Chest Chest palpation & inspection: normal inspection of the chest Resp Effort & Inspection: normal respiratory effort and able to speak in complete sentences Cardio Rate: regular rate GI Inspection: Yes normal to inspection General: Yes no CVA tenderness Back/Spine/Pelvis Back: no CVA tenderness Skin General skin exam: no rashes or lesions noted Neuro General: oriented to person Extrem General: Yes normal to inspection Psych Appearance: grossly normal and well kempt Mental Status: mental status grossly normal Speech and movement: Normal speech and movement present and Clear speech present Affect: normal affect Attitude: cooperative Thought content: Normal thought content present Insight: Limited insight present (Psych) Judgement: Limited judgement present (Psych) Office Procedures Bladder/Catheter Procedure 22662-Lnttriubqb of Bladder Procedure code (CPT) selection complete Post Void Residual Post Residual Void Post Void Residual (PVR): 383 [id number] Void Residual by ultrasound Post Void Residual Post Residual Void Post Void Residual (PVR): 308 [id number]-[id number] Void Residual by ultrasound Assessment & Plan Assessment & Plan (1) Urinary retention: Code(s): R33.9 - Retention of urine, unspecified Category: Medical (2) Incomplete bladder emptying: Code(s): R33.9 - Retention of urine, unspecified Category: Medical Plan In office voiding trial performed patient was able to independently void however remains with increased postvoid residual. We discussed further treatment options to include CIC verses surveillance monitoring verses reinsertion of indwelling Mojica catheter. Supplies and Education provided regarding CIC to patient's and daughter. Continue Flomax and finasteride as prescribed. We discussed possible near future in office cystoscopy for further assessment evaluation. We discussed obtaining retroperitoneal ultrasound as well as PSA for further assessment evaluation. Follow-up in 6 weeks with imaging, PSA, and PVR; or sooner with any issues, concerns, and or questions. Orders: Orders AMB Bladder/Catheter Procedure 09/22/24 R33.9 - Retention of urine, unspecified Prostate Specific Antigen 09/22/24 R33.9 - Retention of urine, unspecified AMB Post Void Residual by ultrasound 09/22/24 R33.9 - Retention of urine, unspecified US retroperitoneal comp 09/22/24 R33.9 - Retention of urine, unspecified Patient Instructions: The patient had an opportunity to ask questions regarding the treatment plan. All questions were answered. Physical exam, labs, and imaging were discussed and reviewed in detail. As well as risks, benefits, and discussion of treatment choices. No major barriers to understanding were identified. The patient expressed understanding and agreement with the above treatment plan. The patient was made aware they should contact our office by phone for worsening of their current condition, the appearance of new symptoms, or with any questions or concerns. Compliance is encouraged with any medications and follow up testing that is ordered. It is a privilege to be allowed the opportunity to participate in? your urological care.? Again, if you have any questions or concerns If you have any questions or concerns please do not hesitate to contact me. The office is [phone]. This note is constructed using voice recognition software. While every effort has been made to ensure accuracy policy writer typist errors may have been included. Yours sincerely, KAYLIN Christensen- Coding Level of Care Code New Pt Level 4 (23919) Diagnoses Urinary retention R33.9 Incomplete bladder emptying R33.9 CPT Codes Bladder/Catheter Procedure - CPT: 21936-Equznsmwhg of Bladder ([id number]) Post Residual Void - PVR CPT Code: 29550-Khav Void Residual by ultrasound ([id number]) Post Residual Void - PVR CPT Code: 83181-Xcvf Void Residual by ultrasound ([id number]) Time Spent (min) 45
== END 2024-09-22 11:17 | disposition home or self-care (01) ==
PROVIDERS: PCP Internal Medicine; Visit Provider Nurse Practitioner Family
DX: R33.9 Retention of urine, unspecified (principal)
CPT/HCPCS: 51700; 99204

== ENCOUNTER → 2024-09-22 08:53 | Outpatient (BNVA) | payer MEDICARE, OTHER, SELFPAY | PROVIDERS: PCP Internal Medicine; Visit Provider Nurse Practitioner Family | DX: R33.9 Retention of urine, unspecified (principal) | CPT/HCPCS: 51700; 51798; 99202 ==

== ENCOUNTER 2024-09-29 08:44 | Outpatient (AMB) | payer MEDICARE, OTHER, SELFPAY ==
--- NOTE | 2024-09-29 08:49 | MHC.OFFVIS ---
Intake Visit Reasons: post lap catherine, pt has concerns Intake Note: Patient here s/p lap catherine. Concerned with loss of appetite, nausea. States a few nights ago chest pain, acid reflux. gave Pepcid AC which helped. Spouse and daughter concerned about appetite and would like to know if there is a diet he should follow after surgery. Patient c/o: states abdominal is not all the time. Air Deodorizer Servicer Required: No Accompanied by: spouse and daughter Allergies No Known Allergies Allergy (Verified 09/29/24 08:52) HPI Comments Details: Patient presents with his and daughter. His current issue is retrosternal heartburn symptoms. This is different from his biliary symptoms. He has this with solid meals. His symptoms are relieved with lkou-fkd-korhycm meds (Pepcid, Mylanta). Because of persistence of symptoms, his oral intake is not what he and the family think it should be. He otherwise he is moving his bowels. [facility] Medical History Hard of hearing Melanoma in situ of back Arthritis BPH (benign prostatic hyperplasia) UTI (urinary tract infection) Dementia On beta joanie at home On anticoagulant therapy HTN (hypertension) Atrial arrhythmia PAF (paroxysmal atrial fibrillation) Surgical History (Updated 09/16/24 @ 00:02 by Woody Scott) S/P laparoscopic cholecystectomy (09/03/24) Hx of local excision of skin lesion H/O colonoscopy History of loop recorder Family History Father Myocardial infarct Mother No problems noted. Social History Household Members: Spouse Household Members Other:: daughter Housing: House Are you a primary palliative care nurse to a significant other at home: No Do you presently have visiting nurse or other home services: No Comment: pt located across from nursing station Patient Tobacco Use Status: Former Tobacco user Tobacco use type: Cigarette Cigarette Packs Per Day: 1 Cigarettes Per Day: 20.0 service: Yes Current occupational status: retired Current occupation: Right Handed Physical Exam Eyes Other: Anicteric GI Other: Abdomen is soft, benign. All incisions well healed. Assessment & Plan Assessment & Plan (1) S/P laparoscopic cholecystectomy: Onset Date: 09/03/24 Comment: Dr. Nura Dubon Code(s): Z90.49 - Acquired absence of other specified parts of digestive tract Category: Medical (2) GERD (gastroesophageal reflux disease): Code(s): K21.9 - Gastro-esophageal reflux disease without esophagitis Category: Medical Plan At present, his symptoms seemed to be more related to reflux/GERD/esophageal in nature and unrelated to his prior biliary symptoms.. My recommendation is to continue the antacids and Pepcid meds. Arrangements will also be made for GI evaluation for his intractable heartburn symptoms. All questions answered. Orders: Referrals Gastroenterology Referral K21.9 - Gastro-esophageal reflux disease without esophagitis Coding Level of Care Code Est Pt Level 3 (14607) Global (16126) Diagnoses S/P laparoscopic cholecystectomy Z90.49 GERD (gastroesophageal reflux disease) K21.9
== END 2024-09-29 09:44 | disposition home or self-care (01) ==
PROVIDERS: PCP Internal Medicine; Visit Provider Surgery
DX: Z90.49 Acquired absence of other specified parts of digestive tract (principal); K21.9 Gastro-esophageal reflux disease without esophagitis
CPT/HCPCS: 99024

== ENCOUNTER → 2024-09-29 08:44 | Outpatient (BNVA) | payer MEDICARE, OTHER, SELFPAY | PROVIDERS: PCP Internal Medicine; Visit Provider Surgery | DX: K21.9 Gastro-esophageal reflux disease without esophagitis (principal); Z90.49 Acquired absence of other specified parts of digestive tract | CPT/HCPCS: 99212 ==

== ENCOUNTER 2024-10-26 14:00 | Outpatient (REF) | payer MEDICARE, OTHER, SELFPAY ==
--- NOTE | ~2024-10-26 | US_ITS ---
CLINICAL HISTORY: R33.9 - Retention of urine, unspecified US Renal Comparison: None Findings: Right kidney normal size and echotexture, 11 cm length. Left kidney normal size and echotexture, 11 cm length. 44 mm right renal cyst with a single thin internal septation. 10 mm superior polar left renal cyst with a single thin internal septation. Left renal midpolar parapelvic cyst with questionable minimal internal debris. No hydronephrosis. Mild fullness of the left upper ureter. Debris noted in the urinary bladder. Mild urinary bladder wall circumferential thickening. Prevoid urinary bladder measures at least 331 mL. Postvoid urinary bladder measures 381-441 mL (auto glass technician was unsure whether or not patient voided). Bilateral ureteral jets are visualized. Small prostate measuring 4 mL. Query TURP defect. IMPRESSION: 1. No hydronephrosis. 2. Renal cyst not requiring further follow-up/workup. 3. Debris noted in the urinary bladder. 4. Postvoid urinary bladder measures 381-441 mL (auto glass technician was unsure whether or not patient voided, therefore measurement may be inaccurate). This document has been electronically signed by: Nora Bergeron MD on 10/30/2024 08:53:21
== END 2024-10-26 14:01 | disposition home or self-care (01) ==
LOC: HO.US 14:00
PROVIDERS: PCP Internal Medicine; Visit Provider Nurse Practitioner Family
DX: Z12.5 Encounter for screening for malignant neoplasm of prostate (principal); R33.9 Retention of urine, unspecified
CPT/HCPCS: 36415; 76770; 84153

== ENCOUNTER 2024-11-03 10:00 | Outpatient (AMB) | payer MEDICARE, OTHER, SELFPAY ==
--- NOTE | 2024-11-03 10:07 | MHC.OFFVIS ---
Intake Visit Reasons: 6w/US/PSA(set) Intake Note: Patient presents today for follow up on: retention, incomplete bladder emptying, ultrasound and lab results PSA: 0.70 Imaging Completed: 10/26/24 Urology Medications: tamsulosin, finasteride Blood Thinner:apixaban PVR: 387ml's Roving Court Reporter Required: No Accompanied by: Self / Same As Patient Allergies No Known Allergies Allergy (Verified 11/03/24 12:30) Medication List - Last Reconciled 11/03/24 by CÉSAR Christensen apixaban (Eliquis) 5 mg PO BID bethanechol chloride 50 mg PO BID 30 days digoxin 125 mcg PO Q2D@0900 finasteride 5 mg PO .every other day 30 days loratadine (Claritin) 10 mg PO DAILY metoprolol succinate ER 150 mg (1.5 x 100 mg) PO DAILY 90 days wpmptmkw-tvg-kwzoc-vit K-lycop 400-20-370 mcg (Men's 50 Plus Multivitamin) 1 tab PO DAILY prednisone 5 mg PO BEDTIME sennosides (Senokot) 8.6 mg PO BID PRN HPI Comments Details: Mihir is a very pleasantly confused 89-year-old male patient of was accompanied by his and daughter at today's office visit. He has a past medical history of dementia, hypertension, paroxysmal AFib, arthritis, hard of hearing, and melanoma in Situ of back 1984. He presents to the office today for follow-up. Of note, patient was seen approximately 2 months ago as a new patient for urinary retention at which time an in office voiding trial was performed and the patient has been able to independently void. During last office visit a retroperitoneal ultrasound was ordered for further assessment evaluation. These results were reviewed with the patient and his family today. Bilateral kidneys are normal in size and echotexture. Left Renal cysts noted that require no imaging follow-up per radiology report. There is debris noted in the bladder. Small prostate measuring 4 mL. Postvoid bladder volume 380ml. Family does report patient with a previous history of a prostate procedure in the past at [facility]. Per patient's daughter who has access to patient's medical records via portal last [facility] report patient was noted to have greater than 400 mL PVR and recommendations were made for 1 year follow-up. Patient was unable to void at today's office visit PVR 387 mL. We discussed at length potential causes and treatment options for incomplete bladder emptying/urinary retention. He is adamant that he will not have another Mojica catheter and or suprapubic tube. We discussed CIC verses trial of medications. PSAs are as follows: 07/11 0.4, 11/17 0.7 Patient is discusses at length difficulty with managing patient's care as he is very forgetful and she feels burdened by her well duties. We discussed potential for patient with ability to reside at [facility]. He reports compliance with finasteride and Flomax as prescribed. We discussed decreasing finasteride to 3 times per week and trial of bethanechol to assist with incomplete bladder emptying. We also discussed lifestyle modifications to assist such as double voiding/times voiding. All questions were answered. He otherwise offers no other issues or concerns at this time. [facility] Medical History Hard of hearing Melanoma in situ of back Arthritis BPH (benign prostatic hyperplasia) UTI (urinary tract infection) Dementia On beta joanie at home On anticoagulant therapy HTN (hypertension) Atrial arrhythmia PAF (paroxysmal atrial fibrillation) Surgical History S/P laparoscopic cholecystectomy (09/03/24) Hx of local excision of skin lesion H/O colonoscopy History of loop recorder Family History Father Myocardial infarct Mother No problems noted. Social History Household Members: Spouse Household Members Other:: daughter Housing: House Are you a primary home health care provider to a significant other at home: No Do you presently have visiting nurse or other home services: No Comment: pt located across from nursing station Patient Tobacco Use Status: Former Tobacco user Tobacco use type: Cigarette Cigarette Packs Per Day: 1 Cigarettes Per Day: 20.0 service: Yes Current occupational status: retired Current occupation: Right Handed Review of Systems Const Reports as per HPI Eyes Reports no additional complaints ENT Reports no additional complaints Card Reports as per HPI Resp Reports no additional complaints GI Reports as per HPI Reports as per HPI Musc Reports as per HPI Skin/Breast Reports as per HPI Neuro Reports as per HPI Psych Reports no additional complaints Endo Reports no additional complaints Terry/Lymph Reports no additional complaints Aller/Immun Reports no additional complaints Physical Exam Const General: cooperative, healthy appearing, comfortable, no acute distress, well developed, alert and awake Orientation/consciousness: oriented to person HEENT Head: Yes normal to inspection, Yes normocephalic and Yes atraumatic Ears: hearing grossly normal bilaterally Eyes General: appearance normal, both eyes and all related structures Neck Neck: Yes normal visual inspection and Yes trachea midline Chest Chest palpation & inspection: normal inspection of the chest Resp Effort & Inspection: normal respiratory effort and able to speak in complete sentences Cardio Rate: regular rate GI Inspection: Yes normal to inspection General: Yes no CVA tenderness Back/Spine/Pelvis Back: no CVA tenderness Skin General skin exam: no rashes or lesions noted Neuro General: oriented to person Extrem General: Yes normal to inspection Psych Appearance: grossly normal and well kempt Mental Status: mental status grossly normal Speech and movement: Normal speech and movement present and Clear speech present Affect: normal affect Attitude: cooperative Thought content: Normal thought content present Insight: Limited insight present (Psych) Judgement: Limited judgement present (Psych) Office Procedures Post Void Residual Post Residual Void Post Void Residual (PVR): 387 [id number] Void Residual by ultrasound Results Reviewed Results Reviewed: Date of Service: 10/26/24 CLINICAL HISTORY: R33.9 - Retention of urine, unspecified US Renal Comparison: None Findings: Right kidney normal size and echotexture, 11 cm length. Left kidney normal size and echotexture, 11 cm length. 44 mm right renal cyst with a single thin internal septation. 10 mm superior polar left renal cyst with a single thin internal septation. Left renal midpolar parapelvic cyst with questionable minimal internal debris. No hydronephrosis. Mild fullness of the left upper ureter. Debris noted in the urinary bladder. Mild urinary bladder wall circumferential thickening. Prevoid urinary bladder measures at least 331 mL. Postvoid urinary bladder measures 381-441 mL (offshore wind turbine technician was unsure whether or not patient voided). Bilateral ureteral jets are visualized. Small prostate measuring 4 mL. Query TURP defect. IMPRESSION: 1. No hydronephrosis. 2. Renal cyst not requiring further follow-up/workup. 3. Debris noted in the urinary bladder. 4. Postvoid urinary bladder measures 381-441 mL (offshore wind turbine technician was unsure whether or not patient voided, therefore measurement may be inaccurate). Assessment & Plan Assessment & Plan (1) Incomplete bladder emptying: Code(s): R33.9 - Retention of urine, unspecified Category: Medical (2) Urinary retention: Code(s): R33.9 - Retention of urine, unspecified Category: Medical Plan Unable to obtain urine for urinalysis; will add order for urine culture. PVR 387 mL. Discussed decreasing finasteride to 3 times per week. Stop Flomax. Start bethanechol as discussed and prescribed. We discussed attempting to double void to assist with incomplete bladder emptying. Recent retroperitoneal ultrasound results reviewed with the patient and his family today. Recent PSA results reviewed with the patient today; as noted above. We discussed further treatment options of incomplete bladder emptying as well as risks and benefits of these interventions. We discussed effects of incomplete bladder emptying; as well as affects of on treated incomplete bladder emptying on overall health and well-being. Follow-up in 3 months with PVR; or sooner with any issues, concerns, and or questions. Orders: Orders AMB Post Void Residual by ultrasound Today R33.9 - Retention of urine, unspecified Medications: New bethanechol chloride 50 mg PO BID 60 tabs 3RF 30 days N39.0 - Urinary tract infection, site not specified Changed From finasteride 5 mg PO BEDTIME To finasteride 5 mg PO .every other day 14 tabs 4RF 30 days Patient Instructions: The patient had an opportunity to ask questions regarding the treatment plan. All questions were answered. Physical exam, labs, and imaging were discussed and reviewed in detail. As well as risks, benefits, and discussion of treatment choices. No major barriers to understanding were identified. The patient expressed understanding and agreement with the above treatment plan. The patient was made aware they should contact our office by phone for worsening of their current condition, the appearance of new symptoms, or with any questions or concerns. Compliance is encouraged with any medications and follow up testing that is ordered. It is a privilege to be allowed the opportunity to participate in? your urological care.? Again, if you have any questions or concerns If you have any questions or concerns please do not hesitate to contact me. The office is [phone]. This note is constructed using voice recognition software. While every effort has been made to ensure accuracy gas meter reader errors may have been included. Yours sincerely, KAYLIN Christensen-BC Coding Level of Care Code Est Pt Level 4 (58678) Complex EM visit Add On G2211 Diagnoses Incomplete bladder emptying R33.9 Urinary retention R33.9 CPT Codes Post Residual Void - PVR CPT Code: 28433-Crqd Void Residual by ultrasound ([id number])
== END 2024-11-03 11:12 | disposition home or self-care (01) ==
PROVIDERS: PCP Internal Medicine; Visit Provider Nurse Practitioner Family
DX: R33.9 Retention of urine, unspecified (principal)
CPT/HCPCS: 99214; G2211

== ENCOUNTER → 2024-11-03 10:00 | Outpatient (BNVA) | payer MEDICARE, OTHER, SELFPAY | PROVIDERS: PCP Internal Medicine; Visit Provider Nurse Practitioner Family | DX: R33.9 Retention of urine, unspecified (principal); N39.0 Urinary tract infection, site not specified | CPT/HCPCS: 51798; 99212 ==

== ENCOUNTER 2024-11-04 12:01 | Outpatient (REF) | payer MEDICARE, OTHER, SELFPAY ==
[2024-11-04 12:56] LABS: Appearance Urine Turbid; Glucose Urine UA Negative (Negative); Leukocyte Esterase Urine Small (1+) (Negative); Nitrite Urine Negative (Negative); Specific Gravity - Urine >= 1.030 (1.005-1.025); UMIC TRIGGER UACC YES; Urine Blood Small (1+) (Negative); Urine Ketones Negative (Negative); Urine Protein Trace mg/dL (Neg-Trace)
[2024-11-04 13:29] LABS: Bacteria Urine 1+ (None Seen); Hyaline Casts Urine 0-2 /LPF (0-2); Squamous Epithelial Cell Urine 0-2 /HPF (0-2); UACC Culture Trigger YES
[2024-11-04 13:32] LABS: Color Urine Yellow
== END 2024-11-04 12:02 | disposition home or self-care (01) ==
LOC: HO.LNP 12:01
PROVIDERS: Visit Provider Nurse Practitioner Family
DX: R33.9 Retention of urine, unspecified (principal)
CPT/HCPCS: 81001; 87086

== ENCOUNTER 2025-02-03 14:59 | Outpatient (AMB) | payer MEDICARE, OTHER, SELFPAY ==
--- NOTE | 2025-02-03 15:04 | MHC.OFFVIS ---
Intake Visit Reasons: 3m/PVR Intake Note: Pt presents to the office today for a 3 month follow up/PVR PVR:318ml Allergies No Known Allergies Allergy (Verified 02/03/25 16:20) Medication List - Last Reconciled 02/03/25 by KAYLIN Christensen-JEN apixaban (Eliquis) 5 mg PO BID ascorbic acid (vitamin C) 1 g PO DAILY 90 days bethanechol chloride 50 mg PO BID 30 days digoxin 125 mcg PO Q2D@0900 finasteride 5 mg PO .every other day 30 days loratadine (Claritin) 10 mg PO DAILY methenamine hippurate 1 g PO DAILY 90 days metoprolol succinate ER 150 mg (1.5 x 100 mg) PO DAILY 90 days vmnevovk-ngm-irfqs-vit K-lycop 400-20-370 mcg (Men's 50 Plus Multivitamin) 1 tab PO DAILY prednisone 5 mg PO BEDTIME sennosides (Senokot) 8.6 mg PO BID PRN HPI Comments Details: Mihir is a pleasantly confused 89-year-old male patient of was accompanied by his and daughter at today's office visit. He has a past medical history of dementia, hypertension, paroxysmal AFib, arthritis, hard of hearing, and melanoma in Situ of back 1984. He presents to the office today for follow-up of his urinary retention and incomplete bladder emptying. In discussion with the patient's who provides much of today's history as patient suffers from dementia she reports having followed up with his PCP as patient had seemed more confused than baseline a urine culture was ordered and obtained and he has since completed linezolid. In office urinalysis results reviewed with the patient today. Negative leukocytes negative nitrates. Patient denies any bothersome urinary issues or concerns PVR mildly decreased from last visit. PVR 318 mL. We discussed at length potential causes of incomplete bladder emptying, urinary retention, and correlation of urinary tract infection with these urological conditions. Family reports compliance with finasteride and bethanechol as prescribed. Previous workup has included a retroperitoneal ultrasound 11/17 noting bilateral kidneys are normal in size and echotexture. Left Renal cysts noted that require no imaging follow-up per radiology report. There is debris noted in the bladder. Small prostate measuring 4 mL. Postvoid bladder volume 380ml. Family does report patient with a previous history of a prostate procedure in the past at [facility]. Per patient's daughter who has access to patient's medical records via portal last [facility] report patient was noted to have greater than 400 mL PVR and recommendations were made for 1 year follow-up. We discussed at length potential causes and treatment options for incomplete bladder emptying/urinary retention. He is adamant that he will not have another Mojica catheter and or suprapubic tube. We discussed PSAs are as follows: 07/11 0.4, 11/17 0.7 Patient is discusses at length difficulty with managing patient's care as he is very forgetful and she feels burdened by her duties. [facility] however he does not wish to initiate this at this time. We also discussed lifestyle modifications to assist such as double voiding/times voiding. All questions were answered. He otherwise offers no other issues or concerns at this time. [facility] Medical History Hard of hearing Melanoma in situ of back Arthritis BPH (benign prostatic hyperplasia) UTI (urinary tract infection) Dementia On beta joanie at home On anticoagulant therapy HTN (hypertension) Atrial arrhythmia PAF (paroxysmal atrial fibrillation) Surgical History S/P laparoscopic cholecystectomy (09/03/24) Hx of local excision of skin lesion H/O colonoscopy History of loop recorder Family History Father Myocardial infarct Mother No problems noted. Social History Household Members: Spouse Household Members Other:: daughter Housing: House Are you a primary career development specialist to a significant other at home: No Do you presently have visiting nurse or other home services: No Comment: pt located across from nursing station Patient Tobacco Use Status: Former Tobacco user Tobacco use type: Cigarette Cigarette Packs Per Day: 1 Cigarettes Per Day: 20.0 service: Yes Current occupational status: retired Current occupation: Right Handed Review of Systems Const Reports as per HPI Eyes Reports no additional complaints ENT Reports no additional complaints Card Reports as per HPI Resp Reports no additional complaints GI Reports as per HPI Reports as per HPI Musc Reports as per HPI Skin/Breast Reports as per HPI Neuro Reports as per HPI Psych Reports no additional complaints Endo Reports no additional complaints Terry/Lymph Reports no additional complaints Aller/Immun Reports no additional complaints Physical Exam Const General: cooperative, healthy appearing, comfortable, no acute distress, well developed, alert and awake Orientation/consciousness: oriented to person HEENT Head: Yes normal to inspection, Yes normocephalic and Yes atraumatic Ears: hearing grossly normal bilaterally Eyes General: appearance normal, both eyes and all related structures Neck Neck: Yes normal visual inspection and Yes trachea midline Chest Chest palpation & inspection: normal inspection of the chest Resp Effort & Inspection: normal respiratory effort and able to speak in complete sentences Cardio Rate: regular rate GI Inspection: Yes normal to inspection General: Yes no CVA tenderness Back/Spine/Pelvis Back: no CVA tenderness Skin General skin exam: no rashes or lesions noted Neuro General: oriented to person Extrem General: Yes normal to inspection Psych Appearance: grossly normal and well kempt Mental Status: mental status grossly normal Speech and movement: Normal speech and movement present and Clear speech present Affect: normal affect Attitude: cooperative Thought content: Normal thought content present Insight: Limited insight present (Psych) Judgement: Limited judgement present (Psych) Office Procedures Post Void Residual Post Residual Void Post Void Residual (PVR): 318 [id number] Void Residual by ultrasound Results AMB Urinalysis, Automated UA Leukoctes 0 Juan Daniel/uL Last Edit by Hodan Cali CMA on 02/03/25 15:19 UA Nitrite Negative Last Edit by Hodan Cali CMA on 02/03/25 15:19 UA Urobilinogen 0.2 mg/dL Last Edit by Hodan Cali CMA on 02/03/25 15:19 UA Protein 0 mg/dL Last Edit by Hodan Cali CMA on 02/03/25 15:19 UA pH 7.0 Last Edit by Hodan Cali CMA on 02/03/25 15:19 UA Blood 0 Reji/uL Last Edit by Hodan Cali CMA on 02/03/25 15:19 UA Specific [place] 1.015 Last Edit by Hodan Cali CMA on 02/03/25 15:19 UA Ketone Negative Last Edit by Hodan Cali CMA on 02/03/25 15:19 UA Bilirubin 0 mg/dL Last Edit by Hodan Cali CMA on 02/03/25 15:19 UA Glucose 0 mg/dL Last Edit by Hodan Cali CMA on 02/03/25 15:19 Results Reviewed Results Reviewed: Laboratory Last Values Urine pH (Auto) 7.0 02/03/25 15:14 Specific [place] (Auto) 1.015 02/03/25 15:14 Urine Protein (Auto) 0 mg/dL 02/03/25 15:14 Glucose (UA)(Auto) 0 mg/dL 02/03/25 15:14 Urine Ketones (Auto) Negative 02/03/25 15:14 Urine Blood (Auto) 0 Reji/uL 02/03/25 15:14 Urine Nitrite (Auto) Negative 02/03/25 15:14 Urine Bilirubin (Auto) 0 mg/dL 02/03/25 15:14 Urine Urobilinogen (Auto) 0.2 mg/dL 02/03/25 15:14 Leukocyte Esterase (Auto) 0 Juan Daniel/uL 02/03/25 15:14 Assessment & Plan Assessment & Plan (1) Incomplete bladder emptying: Code(s): R33.9 - Retention of urine, unspecified Category: Medical (2) Urinary retention: Code(s): R33.9 - Retention of urine, unspecified Category: Medical (3) Recent urinary tract infection: Code(s): Z87.440 - Personal history of urinary (tract) infections Category: Medical Plan In office urinalysis results reviewed with the patient is family today; as noted above. PVR 318 mL. We discussed further interventions of incomplete bladder emptying as well as risks and benefits of these interventions. Patient declines any further intervention at this time. Will continue with bethanechol and finasteride as prescribed. Will initiate methenamine and vitamin-C. We discussed in office cystoscopy for further assessment evaluation. We discussed lifestyle modifications to assist with incomplete bladder emptying such as double voiding. Follow-up in 3 months for in office cystoscopy; or sooner with any issues, concerns, and or questions. Orders: Orders AMB Post Void Residual by ultrasound Today R33.9 - Retention of urine, unspecified AMB Urinalysis Automated Today R33.9 - Retention of urine, unspecified Medications: New methenamine hippurate 1 g PO DAILY 90 tabs 1RF 90 days N39.0 - Urinary tract infection, site not specified ascorbic acid (vitamin C) 1 g PO DAILY 90 tabs 1RF 90 days N39.0 - Urinary tract infection, site not specified Changed From bethanechol chloride 50 mg PO BID 30 days 60 tabs 1RF N39.0 - Urinary tract infection, site not specified To bethanechol chloride 50 mg PO BID 180 tabs 1RF 90 days N39.0 - Urinary tract infection, site not specified Patient Instructions: The patient had an opportunity to ask questions regarding the treatment plan. All questions were answered. Physical exam, labs, and imaging were discussed and reviewed in detail. As well as risks, benefits, and discussion of treatment choices. No major barriers to understanding were identified. The patient expressed understanding and agreement with the above treatment plan. The patient was made aware they should contact our office by phone for worsening of their current condition, the appearance of new symptoms, or with any questions or concerns. Compliance is encouraged with any medications and follow up testing that is ordered. It is a privilege to be allowed the opportunity to participate in? your urological care.? Again, if you have any questions or concerns If you have any questions or concerns please do not hesitate to contact me. The office is [phone]. This note is constructed using voice recognition software. While every effort has been made to ensure accuracy integrated program teacher errors may have been included. Yours sincerely, CÉSAR Christensen Coding Level of Care Code Est Pt Level 4 (45251) Complex EM visit Add On G2211 Diagnoses Incomplete bladder emptying R33.9 Urinary retention R33.9 Recent urinary tract infection Z87.440 CPT Codes Post Residual Void - PVR CPT Code: 38522-Zuvr Void Residual by ultrasound ([id number])
== END 2025-02-03 16:11 | disposition home or self-care (01) ==
LOC: HO.HUSH 15:00
PROVIDERS: PCP Internal Medicine; Visit Provider Nurse Practitioner Family
DX: R33.9 Retention of urine, unspecified (principal); Z87.440 Personal history of urinary (tract) infections
CPT/HCPCS: 99214; G2211

== ENCOUNTER → 2025-02-03 14:59 | Outpatient (BNVA) | payer MEDICARE, OTHER, SELFPAY | PROVIDERS: PCP Internal Medicine; Visit Provider Nurse Practitioner Family | DX: R33.9 Retention of urine, unspecified (principal); Z87.440 Personal history of urinary (tract) infections | CPT/HCPCS: 51798; 81003; 99212 ==

== ENCOUNTER 2025-02-17 12:14 | Outpatient (AMB) | payer MEDICARE, OTHER, SELFPAY ==
--- NOTE | 2025-02-17 12:35 | A.OFFVIS_ITS ---
Vital Signs 02/17/25 12:36 Height 6 ft 2 in Weight 171 lb 15.369 oz BMI 22.1 BP 118/66 Blood Pressure Location Lt brachial Position Sitting Pulse 68 Intake Visit Reasons: 6 mth f/up Intake Note: 6 month follow-up feeling good Managed Security Sales Consultant Required: No Secondary Teacher: Secondary Teacher Present Accompanied by: Spouse Allergies No Known Allergies Allergy (Verified 02/03/25 16:20) Medication List - Last Reconciled 02/17/25 by Kamari Osuna MD apixaban (Eliquis) 5 mg PO BID ascorbic acid (vitamin C) 1 g PO DAILY 90 days bethanechol chloride 50 mg PO BID 90 days digoxin 125 mcg PO Q OTHER DAY finasteride 5 mg PO .every other day 30 days loratadine (Claritin) 10 mg PO DAILY methenamine hippurate 1 g PO DAILY 90 days metoprolol succinate ER 150 mg (1.5 x 100 mg) PO DAILY 90 days ghhinbty-uen-ychuj-vit K-lycop 400-20-370 mcg (Men's 50 Plus Multivitamin) 1 tab PO DAILY prednisone 5 mg PO BEDTIME HPI Comments Details: Mihir returns for follow-up regarding atrial fibrillation. From cardiac [facility], absolutely no symptoms. He does not have any angina or in fact anything of cardiac type. Frailty from age but otherwise getting along fine. [facility] Medical History Hard of hearing Melanoma in situ of back Arthritis BPH (benign prostatic hyperplasia) UTI (urinary tract infection) Dementia On beta joanie at home On anticoagulant therapy HTN (hypertension) Atrial arrhythmia PAF (paroxysmal atrial fibrillation) Surgical History S/P laparoscopic cholecystectomy (09/03/24) Hx of local excision of skin lesion H/O colonoscopy History of loop recorder Family History Father Myocardial infarct Mother No problems noted. Social History Household Members: Spouse Household Members Other:: daughter Housing: House Are you a primary infant caregiver to a significant other at home: No Do you presently have visiting nurse or other home services: No Comment: pt located across from nursing station Patient Tobacco Use Status: Former Tobacco user Tobacco use type: Cigarette Cigarette Packs Per Day: 1 Cigarettes Per Day: 20.0 service: Yes Current occupational status: retired Current occupation: Right Handed Review of Systems Const Denies chills, Denies fatigue, Denies fever(s), Denies frequent falls, Denies we akness, Denies weight gain and Denies weight loss ENT Denies dizziness Card Denies chest pain, Denies leg edema, Denies lightheadedness, Denies palpit ations, Denies dyspnea, Denies dyspnea on exertion, Denies orthopnea and Denies other (loss of consciousness) Resp Denies cough, Denies dyspnea and Denies dyspnea on exertion GI Denies hematochezia and Denies change in stool character Musc Denies abnormal gait, Denies muscle weakness, Denies numbness, Denies radiating pain into limb and Denies tingling Neuro Denies abnormal gait, Denies dizziness, Denies frequent falls, Denies numbness, Denies tingling and Denies weakness Endo Denies fatigue and Denies palpitations Physical Exam Vital Signs: Last Vital Signs Pulse 68 02/17/25 12:36 BP 118/66 02/17/25 12:36 BMI result Body Mass Index 22.1 Const General: comfortable and no acute distress Orientation/consciousness: patient oriented x3 HEENT Other: Unremarkable Head: Yes normal to inspection Neck Neck: Yes normal visual inspection Chest Chest palpation & inspection: normal inspection of the chest Resp Auscultation: clear to auscultation bilaterally Cardio Palpation: normal PMI Heart sounds: S1 normal heart sound present, S2 normal heart sound present, no gallops, no murmurs and no rubs GI Palpation (GI): Soft to palpation Back/Spine/Pelvis Other: unremarkable Skin General skin exam: no rashes or lesions noted Neuro General: patient oriented x3 Extrem General: Yes normal to inspection Psych Mental Status: mental status grossly normal Assessment & Plan Assessment & Plan (1) Persistent atrial fibrillation: Code(s): I48.19 - Other persistent atrial fibrillation Category: Medical Plan: On metoprolol ER, digoxin and Eliquis. No changes. (2) Cardiomyopathy: Code(s): I42.9 - Cardiomyopathy, unspecified Category: Medical Plan: Has had slightly diminished LVEF at 45-50% in the past but most recently normalized. No specific interventions. (3) Essential hypertension: Code(s): I10 - Essential (primary) hypertension Category: Medical Plan: Stable. No changes. Orders: Orders Digoxin Today I48.19 - Other persistent atrial fibrillation Basic Metabolic Panel Today I48.19 - Other persistent atrial fibrillation Coding Level of Care Code Est Pt Level 4 (90445) Complex EM visit Add On G2211 Diagnoses Persistent atrial fibrillation I48.19 Cardiomyopathy I42.9 Essential hypertension I10
[2025-02-17 12:36] VITALS: BP 118/66; PULSE 68; BMI 22.1
== END 2025-02-17 12:54 | disposition home or self-care (01) ==
LOC: HO.HCS 12:15
PROVIDERS: PCP Internal Medicine; Visit Provider Internal Medicine
DX: I48.19 Other persistent atrial fibrillation (principal); I42.9 Cardiomyopathy, unspecified; I10 Essential (primary) hypertension
CPT/HCPCS: 99214; G2211

== ENCOUNTER → 2025-02-17 12:14 | Outpatient (BNVA) | payer MEDICARE, OTHER, SELFPAY | PROVIDERS: PCP Internal Medicine; Visit Provider Internal Medicine | DX: I48.19 Other persistent atrial fibrillation (principal); I42.9 Cardiomyopathy, unspecified; I10 Essential (primary) hypertension | CPT/HCPCS: 99212 ==

== ENCOUNTER 2025-04-27 13:54 | Outpatient (AMB) | payer MEDICARE, OTHER, SELFPAY ==
--- NOTE | 2025-04-27 14:05 | A.OFFVIS_ITS ---
Intake Visit Reasons: cysto Intake Note: Patient is present for Cystoscopy Urology Medication:FINASTERIDE,VITAMIN C,BETHANECOL,METHENAMINE Antibiotic Allergy:NONE Blood Thinner:LISAQUIS Lot:[id number] Exp:12/17/27 Sausage Maker Required: No Allergies No Known Allergies Allergy (Verified 04/27/25 14:08) HPI Comments Details: Mihir is a pleasantly confused 89-year-old male patient of was accompanied by his and daughter at today's office visit. He has a past medical history of dementia, hypertension, paroxysmal AFib, arthritis, hard of hearing, and melanoma in Situ of back 1984. He presents to the office today for follow-up of his urinary retention and incomplete bladder emptying. In office cystoscopy was performed grade 3 bladder trabeculations noted throughout the bladder otherwise no bladder lesions or tumors noted. There is minimal growth of previous prostate procedure. Bladder neck open. In office urinalysis results reviewed with the patient today. He does continue to report compliance with bethanechol, finasteride, methenamine, and vitamin-C. We did discuss affects of incomplete bladder emptying as well as further treatment options to include CIC verses suprapubic tube verses indwelling Mojica catheter. However, he is adamant that he does not wish to have indwelling Mojica catheter, suprapubic tube, and or CIC. Previous workup has included a retroperitoneal ultrasound 11/17 noting bilateral kidneys are normal in size and echotexture. Left Renal cysts noted that require no imaging follow-up per radiology report. There is debris noted in the bladder. Small prostate measuring 4 mL. Postvoid bladder volume 380ml. PSAs are as follows: 07/11 0.4, 11/17 0.7 Patients discusses at length difficulty with managing patient's care as he is very forgetful and she feels burdened by her duties. [facility] however he does not wish to initiate this at this time. We also discussed lifestyle modifications to assist such as double voiding/times voiding. All questions were answered. He otherwise offers no other issues or concerns at this time. [facility] Medical History Hard of hearing Melanoma in situ of back Arthritis BPH (benign prostatic hyperplasia) UTI (urinary tract infection) Dementia On beta joanie at home On anticoagulant therapy HTN (hypertension) Atrial arrhythmia PAF (paroxysmal atrial fibrillation) Surgical History S/P laparoscopic cholecystectomy (09/03/24) Hx of local excision of skin lesion H/O colonoscopy History of loop recorder Family History Father Myocardial infarct Mother No problems noted. Social History Household Members: Spouse Household Members Other:: daughter Housing: House Are you a primary home day care provider to a significant other at home: No Do you presently have visiting nurse or other home services: No Comment: pt located across from nursing station Patient Tobacco Use Status: Former Tobacco user Tobacco use type: Cigarette Cigarette Packs Per Day: 1 Cigarettes Per Day: 20.0 service: Yes Current occupational status: retired Current occupation: Right Handed Review of Systems Const Reports as per HPI Eyes Reports no additional complaints ENT Reports no additional complaints Card Reports as per HPI Resp Reports no additional complaints GI Reports as per HPI Reports as per HPI Musc Reports as per HPI Skin/Breast Reports as per HPI Neuro Reports as per HPI Psych Reports no additional complaints Endo Reports no additional complaints Terry/Lymph Reports no additional complaints Aller/Immun Reports no additional complaints Physical Exam Const General: cooperative, healthy appearing, comfortable, no acute distress, well developed, alert and awake Orientation/consciousness: oriented to person HEENT Head: Yes normal to inspection, Yes normocephalic and Yes atraumatic Ears: hearing grossly normal bilaterally Eyes General: appearance normal, both eyes and all related structures Neck Neck: Yes normal visual inspection and Yes trachea midline Chest Chest palpation & inspection: normal inspection of the chest Resp Effort & Inspection: normal respiratory effort and able to speak in complete sentences Cardio Rate: regular rate GI Inspection: Yes normal to inspection General: Yes no CVA tenderness Back/Spine/Pelvis Back: no CVA tenderness Skin General skin exam: no rashes or lesions noted Neuro General: oriented to person Extrem General: Yes normal to inspection Psych Appearance: grossly normal and well kempt Mental Status: mental status grossly normal Speech and movement: Normal speech and movement present and Clear speech present Affect: normal affect Attitude: cooperative Thought content: Normal thought content present Insight: Limited insight present (Psych) Judgement: Limited judgement present (Psych) Office Procedures Cystoscopy Consent Discussed risk and benefit or proposed procedure with the patient. Information consent for procedure given to the patient. Discussed technical aspects, risks, benefits and alternatives in full. Addressed all of the patient's questions and concerns regarding the procedure. The patient demonstrated knowledge and understanding. They wish to proceed with this procedure. Preparation The patient was prepped in the usual manner. A hand chain maker was present and in the room. Genitalia was prepped with betadine solution in a sterile manner. Lidocaine Jelly 2% was placed into the urethra and 16Fr flexible Olympus cystoscope was inserted into the meatus after adequate lubrication. Procedure Meatus normal position Bladder examination with retroflexion of cystoscope Bladder Orifices normal shape and position Trigone normal Bladder Capacity moderate Trabeculations grade 3 bladder trabeculations Cellule Formation none Diverticulum Formation none Mucosal Erythema none Bladder Tumor none Patient tolerated procedure well [id number] DISPOSABLE SCOPE URO-G FLEXIBLE SCOPE Procedure code (CPT) selection complete Office Meds lidocaine HCl 2 % mucosal jelly in applicator Performing Provider: Gordo Yost MD Performing Location: [facility] Administered by: Gene Eddy LPN on 04/27/25 14:26 Dose Route Admin Location Dispensed Lot Number Expiration Date [place] Telecommunications Project Manager 10 mL intra-urethral 10 mL nitrofurantoin monohydrate/macrocrystals 100 mg capsule Performing Provider: Gordo Yost MD Performing Location: [facility] Administered by: Gene Eddy LPN on 04/27/25 14:26 Dose Route Admin Location Dispensed Lot Number Expiration Date [place] Telecommunications Project Manager 100 mg PO 1 cap Results AMB Urinalysis, Automated UA Leukoctes 0 Juan Daniel/uL Last Edit by NAM Padgett on 04/27/25 14:25 UA Nitrite Negative Last Edit by NAM Padgett on 04/27/25 14:25 UA Urobilinogen 0.2 mg/dL Last Edit by NAM Padgett on 04/27/25 14:2 5 UA Protein 0 mg/dL Last Edit by NAM Padgett on 04/27/25 14:25 UA pH 7.0 Last Edit by NAM Padgett on 04/27/25 14:25 UA Blood 0 Reji/uL Last Edit by NAM Padgett on 04/27/25 14:25 UA Specific [place] 1.010 Last Edit by NAM Padgett on 04/27/25 14: 25 UA Ketone Negative Last Edit by NAM Padgett on 04/27/25 14:25 UA Bilirubin 0 mg/dL Last Edit by NAM Padgett on 04/27/25 14:25 UA Glucose 0 mg/dL Last Edit by NAM Padgett on 04/27/25 14:25 Results Reviewed Results Reviewed: Laboratory Last Values Urine pH (Auto) 7.0 04/27/25 14:24 Specific [place] (Auto) 1.010 04/27/25 14:24 Urine Protein (Auto) 0 mg/dL 04/27/25 14:24 Glucose (UA)(Auto) 0 mg/dL 04/27/25 14:24 Urine Ketones (Auto) Negative 04/27/25 14:24 Urine Blood (Auto) 0 Reji/uL 04/27/25 14:24 Urine Nitrite (Auto) Negative 04/27/25 14:24 Urine Bilirubin (Auto) 0 mg/dL 04/27/25 14:24 Urine Urobilinogen (Auto) 0.2 mg/dL 04/27/25 14:24 Leukocyte Esterase (Auto) 0 Juan Daniel/uL 04/27/25 14:24 Assessment & Plan Assessment & Plan (1) Incomplete bladder emptying: Code(s): R33.9 - Retention of urine, unspecified Category: Medical (2) Recent urinary tract infection: Code(s): Z87.440 - Personal history of urinary (tract) infections Category: Medical Plan In office urinalysis results reviewed with the patient today; as noted above. In office cystoscopy was performed grade 3 bladder trabeculations noted otherwise no bladder tumors or lesions noted. Continue methenamine, vitamin-C, and bethanechol as prescribed. Patient continues to decline suprapubic tube/indwelling Mojica and or CIC for incomplete bladder emptying; we did discussed potential delay in treatment Continue with double voiding to assist with bladder emptying Prescription provided for nystatin to groin area Follow-up in 3-6 months with [facility]; or sooner with any issues, concerns, and or questions. Orders: Orders AMB Urinalysis Automated 04/27/25 Gordo Yost MD Z13.9 - Encounter for screening, unspecified AMB Cystoscopy 04/27/25 Gordo Yost MD R33.9 - Retention of urine, unspecified, Z87.440 - Personal history of urinary (tract) infections Medications: New nystatin Apply to affected area 1 appl topical TID 30 grams 1RF 30 days CÉSAR Christensen Patient Instructions: The patient had an opportunity to ask questions regarding the treatment plan. All questions were answered. Physical exam, labs, and imaging were discussed and reviewed in detail. As well as risks, benefits, and discussion of treatment choices. No major barriers to understanding were identified. The patient expressed understanding and agreement with the above treatment plan. The patient was made aware they should contact our office by phone for worsening of their current condition, the appearance of new symptoms, or with any questions or concerns. Compliance is encouraged with any medications and follow up testing that is ordered. It is a privilege to be allowed the opportunity to participate in? your urological care.? Again, if you have any questions or concerns If you have any questions or concerns please do not hesitate to contact me. The office is [phone]. This note is constructed using voice recognition software. While every effort has been made to ensure accuracy last sawyer errors may have been included. Yours sincerely, CÉSAR Christensen Coding Level of Care Code Est Pt Level 4 (60222) Diagnoses Incomplete bladder emptying R33.9 Recent urinary tract infection Z87.440 CPT Codes Cystoscopy - CPT: 72499-Xnvflejzfr ([id number])
== END 2025-04-27 14:54 | disposition home or self-care (01) ==
LOC: HO.HUSH 13:54
PROVIDERS: PCP Internal Medicine; Visit Provider Urology
DX: R33.9 Retention of urine, unspecified (principal); Z87.440 Personal history of urinary (tract) infections; Z13.9 Encounter for screening, unspecified
CPT/HCPCS: 52000; 99214

== ENCOUNTER → 2025-04-27 13:54 | Outpatient (BNVA) | payer MEDICARE, OTHER, SELFPAY | PROVIDERS: PCP Internal Medicine; Visit Provider Urology | DX: R33.9 Retention of urine, unspecified (principal); N32.89 Other specified disorders of bladder; Z87.440 Personal history of urinary (tract) infections; Z79.899 Other long term (current) drug therapy; Z79.01 Long term (current) use of anticoagulants; Z13.9 Encounter for screening, unspecified | CPT/HCPCS: 52000; 81003; 99212 ==

== ENCOUNTER → 2025-06-17 17:02 | Outpatient (BNV) | payer MEDICARE, OTHER, SELFPAY | PROVIDERS: Emergency Provider Emergency Medicine Emergency Medical Services; PCP Family Medicine; Visit Provider Internal Medicine Cardiovascular Disease | DX: I48.91 Unspecified atrial fibrillation (principal) | CPT/HCPCS: 93010 ==

== ENCOUNTER 2025-06-25 14:41 | Outpatient (AMB) | payer MEDICARE, OTHER, SELFPAY ==
--- NOTE | 2025-06-25 14:57 | MHC.PC.OV ---
Vital Signs 06/25/25 15:04 Height 6 ft 1 in Weight 181 lb 8 oz BMI 23.9 BP 128/62 Blood Pressure Location Lt brachial Position Sitting Respiration 18 Pulse 71 Pulse Source Pulse Oximeter Temp 98.6 F Temp Source Temporal Artery Scan Pulse Oximetry (%) 98 Oxygen Delivery Method Room Air Intake Visit Reasons: ER F/U from [facility] due to a fall cut on forehead Intake Note: Mihir presents in the office today for an ER Follow up due to a fall and cut on his forehead. Patient is on the waiting list for the [facility]. Allergies No Known Allergies Allergy (Verified 06/25/25 15:00) Medication List - Last Reconciled 06/25/25 by Ahemt Palacios MD apixaban (Eliquis) 5 mg PO BID ascorbic acid (vitamin C) 1 g PO DAILY 90 days bethanechol chloride 50 mg PO BID 90 days digoxin 125 mcg PO Q OTHER DAY finasteride 5 mg PO .every other day 30 days loratadine (Claritin) 10 mg PO DAILY methenamine hippurate 1 g PO DAILY 90 days metoprolol succinate ER 150 mg (1.5 x 100 mg) PO DAILY 90 days qdfvdwuq-dgh-ifbkl-vit K-lycop 400-20-370 mcg (Men's 50 Plus Multivitamin) 1 tab PO DAILY nystatin 1 appl topical TID 30 days prednisone 5 mg PO BEDTIME Tobacco use date assessed: 06/25/25 Fall risk assessment: 1 Fall in past year Last assessed Fall Risk: 06/25/25 Dental Screening Dental Screen Date: 06/25/25 Did you have a dental visit in the last 12 months?: Yes Did you have a dental problem in the last 6 months where you did not have access to dental care?: No Was dental information given to patient?: Patient has dentist HPI ER F/U from [facility] due to a fall cut on forehead HPI Details 89 y/o male presents to [facility] hospital visit 06/17/25 for a fall. Laceration on forehead. Also multiple skin tear in the hand which was dressed. CT of hand showed no evidence of fracture on CT. [facility] Medical History (Updated 06/25/25 @ 15:41 by Ahmet Palacios MD) Hard of hearing Melanoma in situ of back Arthritis BPH (benign prostatic hyperplasia) UTI (urinary tract infection) Dementia On beta joanie at home On anticoagulant therapy HTN (hypertension) Atrial arrhythmia PAF (paroxysmal atrial fibrillation) Surgical History S/P laparoscopic cholecystectomy (09/03/24) Hx of local excision of skin lesion H/O colonoscopy History of loop recorder Family History (Updated 06/25/25 @ 15:04 by Rebecca Ray CMA) Father Myocardial infarct Mother No problems noted. Social History (Updated 06/25/25 @ 15:04 by Rebecca Ray CMA) Household Members: Spouse Household Members Other:: daughter Housing: House Are you a primary childcare attendant to a significant other at home: No Do you presently have visiting nurse or other home services: No Alcohol intake: never Comment: pt located across from nursing station Patient Tobacco Use Status: Former Tobacco user Tobacco use type: Cigarette Cigarette Packs Per Day: 1 Cigarettes Per Day: 20.0 e-Cigarette/Vaping Use: Never Used Second Hand Smoke Exposure: No Use of substances other than those prescribed or required for medical reasons: No service: Yes Current occupational status: retired Current occupation: Right Handed Cognitive needs: Yes Hearing needs: No Vision needs: No Questionnaire PHQ-9 Over the last 2 weeks, how often have you been bothered by any of the following problems? 1. Little interest or pleasure in doing things: not at all 2. Feeling down, depressed, or hopeless: not at all 3. Trouble falling or staying asleep, or sleeping too much: not at all 4. Feeling tired or having little energy: not at all 5. Poor appetite or overeating: not at all 6. Feeling bad about yourself - or that you are a failure or have let yourself or your family down: not at all 7. Trouble concentrating on things, such as reading the newspaper or watching television: not at all 8. Moving or speaking so slowly that other people could have noticed. Or the opposite - being so fidgety or restless that you have been moving around a lot more than usual: not at all 9. Thoughts that you would be better off or of hurting yourself in some way: not at all Total score: 0 Depression Screening Interpretation: Negative Depression Screening Done: Yes 91532 - PHQ-9 Billing: Yes Source: Developed by Drs. Lenny Christensen, Jasson Hammond and colleagues, with an educational bernice from [employer]. Thrive Questionnaire Date Thrive assessed: 06/25/25 I am a: Patient What is your living situation today?: I have a steady place to live Within the past 12 months, did the food you bought not last and you didn't have the money to get more?: Never true Within the past 12 months, did you worry whether your food would run out before you got money to buy more?: Never true Do you have trouble paying for medicines?: No Do you have trouble getting transportation to medical appointments?: No Do you have trouble paying your heating and electricity bill?: No Do you have trouble taking care of your child, family member or friend?: No Do you have trouble with day-to-day activities such as bathing, preparing meals, shopping, managing finances, etc.?: Yes Are you currently unemployed and looking for a job?: No Are you interested in more education?: No Please select the resources that you would like help with: None Currently or been in a relationship where the following occur: No concerns reported THRIVE Score: 0 AUDIT C Alcohol Use Questionnaire (AUDIT-C) 1. How often do you have a drink containing alcohol?: Never 3. How often do you have six or more drinks on one occasion?: Never Total Score: 0 NIMA-7 AMB Questionnaire NIMA-7 Date NIMA - 7 assessed: 06/25/25 Feeling nervous, anxious, or on edge: 0 = Not at all Not being able to stop or control worryin = Not at all Worrying too much about different things: 0 = Not at all Trouble relaxin = Not at all Being so restless that it is hard to sit still: 0 = Not at all Becoming easily annoyed or irritable: 0 = Not at all Feeling afraid as if something awful might happen: 0 = Not at all Total NIMA-7 score (0-4 normal; 5-9 mild; 10-14 moderate; 15-21 severe): 0 Source: Developed by Drs. Lenny Christensen, Jasson Hammond and colleagues, with an educational bernice from [employer]. NIMA-7 Assessment Billing NIMA-7 Assessment Tool: NIMA-7 Assessment 81411 Review of Systems Const Denies chills, Denies fatigue, Denies fever(s), Denies headache(s) and Denies weakness ENT Denies dizziness and Denies headache(s) Card Denies dyspnea Resp Denies cough, Denies dyspnea, Denies wheezing and Denies other (shortness of breath) Musc Denies numbness and Denies tingling Neuro Denies dizziness, Denies headache(s), Denies numbness, Denies tingling and Denies weakness Psych Denies anxiety and Denies depression Endo Denies fatigue Aller/Immun Denies wheezing Physical exam (Primary Care) Vital Signs: Last Vital Signs Temp 98.6 F 06/25/25 15:04 Pulse 71 06/25/25 15:04 Resp 18 06/25/25 15:04 BP 128/62 06/25/25 15:04 Pulse Ox 98 06/25/25 15:04 Oxygen Delivery Method Room Air 06/25/25 15:04 BMI result Body Mass Index 23.9 Tobacco/Smoking Status: Tobacco use Status Tobacco use date assessed 06/25/25 06/25/25 15:08 Patient Tobacco Use Status Former Tobacco user 06/25/25 15:04 Tobacco use type Cigarette 06/25/25 15:04 e-Cigarette/Vaping Use Never Used 06/25/25 15:08 PHQ-9: PHQ-9 Score PHQ-9: Total score 0 06/25/25 15:17 Depression Screening Interpretation: Negative Thrive Assessment: Date of Thrive Assessment Date Thrive assessed 06/25/25 06/25/25 15:08 Currently or been in a relationship where the following occur: No concerns reported Const General: well developed; No acute distress Nutritional Appearance: well nourished Orientation/consciousness: patient oriented x3 HENMT Head: Yes normocephalic and Yes atraumatic Eyes General: appearance normal, both eyes and all related structures Pupils: Equal, round and reactive pupils present EOM: EOMs intact bilaterally Resp Effort & Inspection: normal respiratory effort Skin Other: Skin laceration of forehead, well healed, no redness, no drainage, no swelling Neuro General: patient oriented x3 and gait normal Cranial nerves: Yes Equal, round and reactive pupils present Psych Affect: normal affect Coding Level of Care Code New Pt Level 4 (26461) Diagnoses Status post fall Z91.81 Laceration of skin of forehead S01.81XA Paroxysmal atrial fibrillation I48.0 Atrial fibrillation type: paroxysmal On anticoagulant therapy Z79.01 Unsteady gait R26.81 Lower extremity weakness R29.898 Additional Codes NIMA-7 Assessment Billing - NIMA-7 Assessment Tool: NIMA-7 Assessment 54427 ([id number]) PHQ-9 - 87831 - PHQ-9 Billing: Yes ([id number]) Assessment & Plan Assessment & Plan (1) Status post fall: Code(s): Z91.81 - History of falling Category: Medical (2) Laceration of skin of forehead: Code(s): S01.81XA - Laceration without foreign body of other part of head, initial encounter Category: Medical (3) Atrial fibrillation: Code(s): I48.91 - Unspecified atrial fibrillation Category: Medical Qualifiers: Atrial fibrillation type: paroxysmal Qualified Code(s): I48.0 - Paroxysmal atrial fibrillation (4) On anticoagulant therapy: Code(s): Z79.01 - senior care (current) use of anticoagulants Category: Medical (5) Unsteady gait: Code(s): R26.81 - Unsteadiness on feet Category: Medical (6) Lower extremity weakness: Code(s): R29.898 - Other symptoms and signs involving the musculoskeletal system Category: Medical Plan 89-year-old male with history of atrial fibrillation - chronically anticoagulated, hypertension, arthritis and mild dementia presents for hospital discharge follow-up after mechanical trip and fall. Patient did have impact to anterior had with laceration of the skin. CT head and and neck were negative for acute injury. No concussion symptoms Laceration at forehead. This was repaired with cyanocrylate glue Laceration is completely healed. Mood bandage and no evidence of redness swelling or drainage. Still has some cyanocrylate glue and this will come off on its own - can allow to get wet in shower but do not scrub. Pat dry Unsteady gait with lower extremity weakness Start physical therapy Also advised a cane Also advised follow-up with an regulatory submissions associate to ensure good vision to avoid obstacles. Orders: Orders PT Evaluation and Treatment Today Ahmet Palacios MD R26.81 - Unsteadiness on feet, R29.898 - Other symptoms and signs involving the musculoskeletal system, Z91.81 - History of falling Medications: New cane Daily As directed, 999 days 1 ea 0RF Ahmet Palacios MD R26.81 - Unsteadiness on feet, R29.898 - Other symptoms and signs involving the musculoskeletal system, Z91.81 - History of falling Changed From apixaban (Eliquis) 5 mg PO BID 180 tabs 3RF To apixaban (Eliquis) 5 mg PO BID Kamari Osuna MD
[2025-06-25 15:04] VITALS: BP 128/62; PULSE 71; RESP 18; TEMP 37; O2SAT 98; BMI 23.9
== END 2025-06-25 15:55 | disposition home or self-care (01) ==
LOC: HO.HMCFM 14:42
PROVIDERS: PCP Family Medicine; Visit Provider Family Medicine
DX: Z91.81 History of falling (principal); S01.81XA Laceration without foreign body of other part of head, initial encounter; I48.0 Paroxysmal atrial fibrillation; Z79.01 Long term (current) use of anticoagulants; R26.81 Unsteadiness on feet; R29.898 Other symptoms and signs involving the musculoskeletal system